=== PATIENT | female | born 1990 | race Caucasian/White ===

== ENCOUNTER 2017-01-23 23:25 | Emergency (ER) | payer MEDICAID ==
[~2017-01-23] VITALS: Ht 170.2 cm; Wt 71.2 kg
[~2017-01-23 23:25] MED LIST: ACHD5005 PO; ALBU8.5H2 IH; BSP10T PO; BUDE10.22 IH; BUTA1TAB55 PO; CEPH-38 PO; CETI10TA17 PO; CIPR500T78 PO; CLON0.5T3 PO; FAMO-119 PO; FLUO20CA25 PO; HYDR-34 PO; IBP600T1 PO; MEDROXYPROGESTERONE IM; OLN5T PO; ONDA4TAB11 PO; PREN-93 PO; SRTR100T PO
--- OUTSIDE RECORDS SUMMARY | 2017-01-23 23:32 | XMS REPORT | Continuity of Care Document ---
Author Author [facility] Organization [facility] Address Unknown Phone Unavailable Care Team Providers Care Lap Cutter Truer Operator Name Role Phone KathleenRogersAllison PCP [phone] Source Comments Some departments are not documenting in the electronic medical record. If you do not see the information that you expected, contact Release of Information in the Health Information Management department at [phone] for further assistance in locating additional records.[facility] Active Allergies and Adverse Reactions No Known Allergies Current Medications Prescription Sig. Disp. Refills Start End Date Status Date albuterol (VENTOLIN HFA, Inhale 1-2 Puffs by mouth Active PROAIR HFA) 90 every 4 hours as needed. mcg/actuation inhaler budesonide/formoterol Inhale 2 Puffs by mouth Active (SYMBICORT) 80-4.5 twice daily. mcg/actuation HFAA inhalation cetirizine (ZYRTEC) 10 mg Take 10 mg by mouth Active tablet daily. medroxyPROGESTERone Inject 150 mg to area(s) Active (contraceptive) as directed every 90 (DEPO-PROVERA) syringe days. cyanocobalamin(+) Take 100 mcg by mouth Active (VITAMIN B-12) 100 mcg twice daily. tablet MULTIVITAMIN WITH Take 1 Tab by mouth Active MINERALS (MULTIVITAMIN & daily. MINERAL FORMULA PO) ibuprofen (MOTRIN) 200 mg Take 400 mg by mouth Active tablet every 8 hours as needed. sertraline (ZOLOFT) 100 Take 100 mg by mouth Active mg tablet daily. clonazePAM (KLONOPIN) 0.5 Take 0.5 mg by mouth as Active mg tablet Needed. sumatriptan (IMITREX) 100 Take 100 mg by mouth as Active mg tablet Needed. Active Problems Problem Noted Date Urinary incontinence 11/25/2012 Overview: Urgency, frequency, UUI 09/[address] Russo. Enrolled in [employer] insite trial. Device no longer working. L ast Assessment & Plan: -informed and consented patient for removal and replacement of sacral nerve stimulator on 01/10/13 -PAT scheduled for today -pre-operative orders including urine culture placed electronically -no further imaging/consults prior to OR Social History Tobacco Use Types Packs/Day Years Used Date Passive Smoke Exposure - Cigarettes 0.25 1 Never Smoker Smokeless Tobacco: Never Used Tobacco Cessation: Ready to Quit: No Comments: Alcohol Use Drinks/Week oz/Week Comments Yes 7 Glasses of 10.2 wine 6 Cans of beer 4 Shots of liquor Last Filed Vital Signs Vital Sign Reading Time Taken Blood Pressure 108/67 02/04/2014 4:04 PM CDT Pulse 67 02/04/2014 4:04 PM CDT Temperature 36.4 C (97.5 F) 01/10/2013 9:38 AM CDT Respiratory Rate 20 11/03/2012 3:38 PM CDT Height 1.676 m (5' 6") 02/04/2014 4:04 PM CDT Weight 73.936 kg (163 lb) 02/04/2014 4:04 PM CDT Body Mass Index 26.32 02/04/2014 4:04 PM CDT Oxygen Saturation 99% 01/10/2013 10:45 AM CDT Plan of Care Health Maintenance Due Date Last Done Comments Physical (Comprehensive) 1999 Exam Hpv Vaccines (#1) 2003 Pertussis Vaccine 2003 Tetanus Vaccine 2009 Cervical Cancer Screening 2013 Influenza Vaccine 03/30/2017 Results from Last 3 Months Not on file
--- OUTSIDE RECORDS SUMMARY | 2017-01-23 23:33 | XMS REPORT ---
Author Author KYLE FERNANDEZ [employer] Address Unknown Phone Unavailable Care Team Providers Care Inspector Missile Name Role Phone KYLE FERNANDEZ CP Unavailable Allergies No Known Allergies Problems Problem Type Condition Code Onset Dates Condition Status Problem Depression F32.9 Active Problem Intractable migraine with aura without status migrainosus G43.119 Active Problem Galactorrhea O92.6 Active Problem Acne, unspecified acne type L70.9 Active Problem TANNA (generalized anxiety disorder) F41.1 Active Problem Bipolar disorder, current episode mixed, severe, with psychotic features F31.64 Active Problem Bipolar I disorder, most recent episode mixed, severe without psychotic features F31.63 Active Problem PTSD (post-traumatic stress disorder) F43.10 Active Medications Medication Code System Code Instructions Start Date End Date Status Dosage Klonopin [facility] [address]-59 0.5 MG Orally 2 times a day as needed for anxiety 1 tablet Results No Known Results Summary Purpose [employer]Clinical[employer] Submission
--- OUTSIDE RECORDS SUMMARY | 2017-01-23 23:36 | XMS REPORT ---
Author Author KYLE FERNANDEZ [employer] Address Unknown Phone Unavailable Care Team Providers Care Prime Minister Name Role Phone KYLE FERNANDEZ CP Unavailable Allergies No Known Allergies Problems Problem Type Condition Code Onset Dates Condition Status Problem Bipolar disorder, current episode mixed, severe, with psychotic features F31.64 Active Problem Depression F32.9 Active Problem ADHD (attention deficit hyperactivity disorder), combined type F90.2 Active Problem Acne, unspecified acne type L70.9 Active Problem Chronic post-traumatic stress disorder (PTSD) F43.12 Active Problem Bipolar I disorder, most recent episode mixed, severe without psychotic features F31.63 Active Problem TANNA (generalized anxiety disorder) F41.1 Active Problem Intractable migraine with aura without status migrainosus G43.119 Active Problem Galactorrhea O92.6 Active Medications Medication Code System Code Instructions Start Date End Date Status Dosage Concerta [facility] [address]-20 27 MG Orally for ADHD Apr 13, 2016 1 tablet in the morning Results No Known Results Summary Purpose [employer]ClinicalWorks Submission
--- OUTSIDE RECORDS SUMMARY | 2017-01-23 23:36 | XMS REPORT ---
Author KYLE Manuel [employer] Address Unknown Phone Unavailable Care Team Providers Care Neonatal Nurse Name Role Phone KYLE FERNANDEZ CP Unavailable Allergies No Known Allergies Problems Problem Type Condition Code Onset Dates Condition Status Problem Depression F32.9 Active Assessment Other detention (current) drug therapy Z79.899 Active Problem Intractable migraine with aura without status migrainosus G43.119 Active Problem Galactorrhea O92.6 Active Problem Acne, unspecified acne type L70.9 Active Problem TANNA (generalized anxiety disorder) F41.1 Active Problem Bipolar disorder, current episode mixed, severe, with psychotic features F31.64 Active Problem Bipolar I disorder, most recent episode mixed, severe without psychotic features F31.63 Active Problem PTSD (post-traumatic stress disorder) F43.10 Active Medications No Known Medications Procedures Procedure Coding System Code Date VENIPUNCT, ROUTINE* CPT-4 39867 February 18, 2016 ASSAY, DIPROPYLACETIC ACID CPT-4 01105 February 18, 2016 Results No Known Results Summary Purpose [employer] Submission
--- OUTSIDE RECORDS SUMMARY | 2017-01-23 23:36 | XMS REPORT ---
Author Author ZENA GARCIA [facility] [employer] Address Unknown Phone Unavailable Care Team Providers Care Certified Bench Jeweler Technician Name Role Phone ZENA GARCIA CP Unavailable Allergies, Adverse Reactions, Alerts Substance Reaction Event Type N.K.D.A. Info Not Available Non Drug Allergy Problems Problem Type Condition Code Onset Dates Condition Status Assessment Abnormal vaginal bleeding N93.9 Active Medications Medication Code System Code Instructions Start Date End Date Status Dosage Depo-Provera [facility] [address]-81 150 MG/ML Intramuscular q 3 months Mar 31, 2015 1 ml Procedures Procedure Coding System Code Date CULTURE, BACTERIA, OTHER CPT-4 89982 Apr 29, 2015 CHYLMD TRACH, DNA, AMP PROBE CPT-4 83229 Apr 29, 2015 TRICHOMONAS VAGIN, DIR PROBE CPT-4 93906 Apr 29, 2015 COMPLETE CBC W/AUTO DIFF WBC CPT-4 34105 Apr 29, 2015 N.GONORRHOEAE, DNA, AMP PROB CPT-4 38650 Apr 29, 2015 Office Visit, Est Pt., Level 3 CPT-4 24376 Apr 29, 2015 VENIPUNCT, ROUTINE* CPT-4 02390 Apr 29, 2015 Vital Signs Date/Time: Apr 29, 2015 Temperature 99.1 F Weight 171.0 lbs Height 67 in BMI 26.78 Index Blood Pressure Diastolic 80 mmHg Blood Pressure Systolic 124 mmHg Cardiac Monitoring Heart Rate 72 bpm Results Name Result Date Reference Range Unit Abnormality Flag CULTURE, GENITAL TRICHOMONAS (IN HOUSE) CBC Summary Purpose eClinicalWorks Submission
--- OUTSIDE RECORDS SUMMARY | 2017-01-23 23:36 | XMS REPORT ---
Author Author KYLE FERNANDEZ [employer] Address Unknown Phone Unavailable Care Team Providers Care Stopper Setter Name Role Phone KYLE FERNANDEZ CP Unavailable [...] Date End Date Status Dosage Klonopin [facility] [address]-26 0.5 MG Orally in the AM and at HS as needed for anxiety and sleep 1 tablet Results No Known Results Summary Purpose eClinicalWorks Submission
--- OUTSIDE RECORDS SUMMARY | 2017-01-23 23:36 | XMS REPORT | Continuity of Care Document ---
Author Author Formerly [facility], [facility] Address Unknown Phone Unavailable Allergies Active Description Code Type Severity Reaction Onset Reported/Identified Relationship to Patient Clinical Status Yes No Known Drug Allergies [id number] Drug Allergy Mild N/A 02/22/2009 Medications Problems Date Dx Coded Attending Type Code Diagnosis Diagnosed By 03/24/2008 564.00 CONSTIPATION 03/24/2008 599.0 URINARY TRACT INFECTION 03/24/2008 788.1 DYSURIA 03/24/2008 789.00 ABDOMINAL PAIN UNSPECIFIED SITE 03/24/2008 CESILIA CANALES MD 564.00 CONSTIPATION 03/24/2008 CESILIA CANALES MD 599.0 URINARY TRACT INFECTION 03/24/2008 CESILIA CANALES MD 788.1 DYSURIA 03/24/2008 CESILIA CANALES MD 789.00 ABDOMINAL PAIN UNSPECIFIED SITE 03/24/2008 LE GILMORE PSYD L 564.00 CONSTIPATION 03/24/2008 LE GILMORE PSYD ANN L 599.0 URINARY TRACT INFECTION 03/24/2008 LE GILMORE PSYD ANN L 788.1 DYSURIA 03/24/2008 LE GILMORE PSYD ANN L 789.00 ABDOMINAL PAIN UNSPECIFIED SITE 03/24/2008 CESILIA CANALES MD 564.00 Constipation 03/24/2008 CESILIA CANALES MD 599.0 Urinary Tract Infection 03/24/2008 CESILIA CANALES MD 788.1 Dysuria 03/24/2008 CESILIA CANALES MD 789.00 Abdominal Pain Unspecified Site 03/24/2008 564.00 Constipation 03/24/2008 599.0 Urinary Tract Infection 03/24/2008 788.1 Dysuria 03/24/2008 789.00 Abdominal Pain Unspecified Site 03/24/2008 564.00 Constipation 03/24/2008 599.0 Urinary Tract Infection 03/24/2008 788.1 Dysuria 03/24/2008 789.00 Abdominal Pain Unspecified Site 03/24/2008 564.00 Constipation 03/24/2008 599.0 Urinary Tract Infection 03/24/2008 788.1 Dysuria 03/24/2008 789.00 Abdominal Pain Unspecified Site 03/24/2008 WHITE DDS, CHAN D 564.00 Constipation 03/24/2008 WHITE DDS, CHAN D 599.0 Urinary Tract Infection 03/24/2008 WHITE DDS, CHAN D 788.1 Dysuria 03/24/2008 WHITE DDS, CHAN D 789.00 Abdominal Pain Unspecified Site 03/24/2008 SERVIN DO, URSZULA K 564.00 Constipation 03/24/2008 SERVIN DO, URSZULA K 599.0 Urinary Tract Infection 03/24/2008 SERVIN DO, URSZULA K 788.1 Dysuria 03/24/2008 SERVIN DO, URSZULA K 789.00 Abdominal Pain Unspecified Site 03/24/2008 MADL PLACEMENT SPECIALIST, DANE L 564.00 Constipation 03/24/2008 MADL PLACEMENT SPECIALIST, DANE L 599.0 Urinary Tract Infection 03/24/2008 MADL PLACEMENT SPECIALIST, DANE L 788.1 Dysuria 03/24/2008 MADL PLACEMENT SPECIALIST, DANE L 789.00 Abdominal Pain Unspecified Site 03/24/2008 MADL PLACEMENT SPECIALIST, DANE L 564.00 Constipation 03/24/2008 MADL PLACEMENT SPECIALIST, DANE L 599.0 Urinary Tract Infection 03/24/2008 MADL PLACEMENT SPECIALIST, DANE L 788.1 Dysuria 03/24/2008 MADL PLACEMENT SPECIALIST, DANE L 789.00 Abdominal Pain Unspecified Site 03/24/2008 USHA PLACEMENT SPECIALIST, MELISSA A 564.00 Constipation 03/24/2008 USHA PLACEMENT SPECIALIST, MELISSA A 599.0 Urinary Tract Infection 03/24/2008 USHA PLACEMENT SPECIALIST, MELISSA A 788.1 Dysuria 03/24/2008 USHA PLACEMENT SPECIALIST, MELISSA A 789.00 Abdominal Pain Unspecified Site 03/24/2008 USHA PLACEMENT SPECIALIST, MELISSA A 564.00 Constipation 03/24/2008 USHA PLACEMENT SPECIALIST, MELISSA A 599.0 Urinary Tract Infection 03/24/2008 USHA PLACEMENT SPECIALIST, MELISSA A 788.1 Dysuria 03/24/2008 USHA APRN, MELISSA A 789.00 Abdominal Pain Unspecified Site 03/24/2008 VAHID ZAVALA APRNWNYA L 564.00 Constipation 03/24/2008 SALLY THAKKAR, DANE L 599.0 Urinary Tract Infection 03/24/2008 NILA ZAVALA APRNA L 788.1 Dysuria 03/24/2008 SALLY THAKKAR, DANE L 789.00 Abdominal Pain Unspecified Site 03/24/2008 SERVIN DO, URSZULA K 564.00 Constipation 03/24/2008 SERVIN DO, URSZULA K 599.0 Urinary Tract Infection 03/24/2008 SERVIN DO, URSZULA K 788.1 Dysuria 03/24/2008 SERVIN DO, URSZULA K 789.00 Abdominal Pain Unspecified Site 03/24/2008 CRAIG KERR APRNIDI A 564.00 Constipation 03/24/2008 CRAIG KERR APRNIDI A 599.0 Urinary Tract Infection 03/24/2008 USHACRAIG Acuna APRNIDI A 788.1 Dysuria 03/24/2008 USHA APRN, MELISSA A 789.00 Abdominal Pain Unspecified Site 03/24/2008 ZORAIDA HOLLEY LCPC B 564.00 Constipation 03/24/2008 ZORAIDA HOLLEY LCPC B 599.0 Urinary Tract Infection 03/24/2008 KISHAN GONZALEZ, ZORAIDA B 788.1 Dysuria 03/24/2008 ZORAIDA HOLLEY LCPC B 789.00 Abdominal Pain Unspecified Site 03/24/2008 USHA THAKKAR, MELISSA A 564.00 Constipation 03/24/2008 USHA APRN, MELISSA A 599.0 Urinary Tract Infection 03/24/2008 USHA THAKKAR MELISSA A 788.1 Dysuria 03/24/2008 USHA THAKKAR MELISSA A 789.00 Abdominal Pain Unspecified Site 03/24/2008 KYLE FERNANDEZ APRN J 564.00 Constipation 03/24/2008 KYLE FERNANDEZ APRN J 599.0 Urinary Tract Infection 03/24/2008 KYLE FERNANDEZ APRN J 788.1 Dysuria 03/24/2008 JIM THAKKAR KYLE J 789.00 Abdominal Pain Unspecified Site 03/24/2008 SERVIN DO, URSZULA K 564.00 Constipation 03/24/2008 SERVIN DO, URSZULA K 599.0 Urinary Tract Infection 03/24/2008 SERVIN DO, URSZULA K 788.1 Dysuria 03/24/2008 SERVIN DO, URSZULA K 789.00 Abdominal Pain Unspecified Site 03/24/2008 [facility], MAY R 564.00 Constipation 03/24/2008 [facility] 599.0 Urinary Tract Infection 03/24/2008 [facility], MAY R 788.1 Dysuria 03/24/2008 [facility], MAY R 789.00 Abdominal Pain Unspecified Site 03/24/2008 SERVIN DO, URSZULA K 564.00 Constipation 03/24/2008 SERVIN DO, URSZULA K 599.0 Urinary Tract Infection 03/24/2008 SERVIN DO, URSZULA K 788.1 Dysuria 03/24/2008 SERVIN DO, URSZULA K 789.00 Abdominal Pain Unspecified Site 03/24/2008 DOC CHAMPION MD N 564.00 Constipation 03/24/2008 DOC CHAMPION MD N 599.0 Urinary Tract Infection 03/24/2008 DOC CHAMPION MD N 788.1 Dysuria 03/24/2008 DOC CHAMPION MD N 789.00 Abdominal Pain Unspecified Site 03/24/2008 SERVIN DO, URSZULA K 564.00 Constipation 03/24/2008 SERVIN DO, URSZULA K 599.0 Urinary Tract Infection 03/24/2008 SERVIN DO, URSZULA K 788.1 Dysuria 03/24/2008 SERVIN DO, URSZULA K 789.00 Abdominal Pain Unspecified Site 03/24/2008 USHA PLACEMENT SPECIALIST, MELISSA A 564.00 Constipation 03/24/2008 USHA PLACEMENT SPECIALIST, MELISSA A 599.0 Urinary Tract Infection 03/24/2008 USHA PLACEMENT SPECIALIST, MELISSA A 788.1 Dysuria 03/24/2008 USHA PLACEMENT SPECIALIST, MELISSA A 789.00 Abdominal Pain Unspecified Site 09/14/2008 V72.31 ROUTINE GYNECOLOGICAL EXAMINATION 09/14/2008 CESILIA CANALES MD V72.31 ROUTINE GYNECOLOGICAL EXAMINATION 09/14/2008 LE GILMORE PSYD V72.31 ROUTINE GYNECOLOGICAL EXAMINATION 09/14/2008 CESILIA CANALES MD V72.31 Routine Gynecological Examination 09/14/2008 V72.31 Routine Gynecological Examination 09/14/2008 V72.31 Routine Gynecological Examination 09/14/2008 V72.31 Routine Gynecological Examination 09/14/2008 SHAUN FORMANS, CHAN Valencia V72.31 Routine Gynecological Examination 09/14/2008 SERVIN URSZULA WOOTEN K V72.31 Routine Gynecological Examination 09/14/2008 SALLY PLACEMENT SPECIALISTDANE Acuna V72.31 Routine Gynecological Examination 09/14/2008 SALLY PLACEMENT SPECIALIST, DANE Mitzy V72.31 Routine Gynecological Examination 09/14/2008 MELISSA KERR APRN V72.31 Routine Gynecological Examination 09/14/2008 MELISSA KERR APRN V72.31 Routine Gynecological Examination 09/14/2008 DANE ZAVALA APRN V72.31 Routine Gynecological Examination 09/14/2008 URSZULA SERVIN DO V72.31 Routine Gynecological Examination 09/14/2008 MELISSA KERR APRN A V72.31 Routine Gynecological Examination 09/14/2008 KISHAN VENDING STAND SUPERVISORZORAIDA BROWN V72.31 Routine Gynecological Examination 09/14/2008 MELISSA KERR APRN A V72.31 Routine Gynecological Examination 09/14/2008 KYLE FERNANDEZ APRN V72.31 Routine Gynecological Examination 09/14/2008 SERVIN ALEX WOOTENA K V72.31 Routine Gynecological Examination 09/14/2008 [facility], MAY Hdez V72.31 Routine Gynecological Examination 09/14/2008 SERVIN ALEX WOOTENA K V72.31 Routine Gynecological Examination 09/14/2008 DOC CHAMPION MD V72.31 Routine Gynecological Examination 09/14/2008 SERVIN ALEX WOOTENA K V72.31 Routine Gynecological Examination 09/14/2008 MELISSA KERR APRN A V72.31 Routine Gynecological Examination 10/26/2008 382.00 OTITIS MEDIA ACUTE SUPPURATIVE 10/26/2008 493.92 ASTHMA WITH ACUTE EXACERBATION 10/26/2008 706.1 ACNE 10/26/2008 CESILIA CANALES MD 382.00 OTITIS MEDIA ACUTE SUPPURATIVE 10/26/2008 CESILIA CANALES MD 493.92 ASTHMA WITH ACUTE EXACERBATION 10/26/2008 CESILIA CANALES MD 706.1 ACNE 10/26/2008 LE GILMORE PSYD ANN L 382.00 OTITIS MEDIA ACUTE SUPPURATIVE 10/26/2008 LE GILMORE PSYD ANN L 493.92 ASTHMA WITH ACUTE EXACERBATION 10/26/2008 LE GILMORE PSYD ANN L 706.1 ACNE 10/26/2008 CESILIA CANALES MD 382.00 Otitis Media Acute Suppurative 10/26/2008 CESILIA CANALES MD 493.92 Asthma With Acute Exacerbation 10/26/2008 CESILIA CANALES MD 706.1 Acne 10/26/2008 382.00 Otitis Media Acute Suppurative 10/26/2008 493.92 Asthma With Acute Exacerbation 10/26/2008 706.1 Acne 10/26/2008 382.00 Otitis Media Acute Suppurative 10/26/2008 493.92 Asthma With Acute Exacerbation 10/26/2008 706.1 Acne 10/26/2008 382.00 Otitis Media Acute Suppurative 10/26/2008 493.92 Asthma With Acute Exacerbation 10/26/2008 706.1 Acne 10/26/2008 WHITE DDS, CHAN D 382.00 Otitis Media Acute Suppurative 10/26/2008 WHITE DDS, CHAN D 493.92 Asthma With Acute Exacerbation 10/26/2008 WHITE DDS, CHAN D 706.1 Acne 10/26/2008 SERVIN DO URSZULA K 382.00 Otitis Media Acute Suppurative 10/26/2008 SERVIN DO URSZULA K 493.92 Asthma With Acute Exacerbation 10/26/2008 SERVIN DO URSZULA K 706.1 Acne 10/26/2008 MADL PLACEMENT SPECIALIST, DANE L 382.00 Otitis Media Acute Suppurative 10/26/2008 MADL PLACEMENT SPECIALIST, DANE L 493.92 Asthma With Acute Exacerbation 10/26/2008 MADL PLACEMENT SPECIALIST, DANE L 706.1 Acne 10/26/2008 MADL PLACEMENT SPECIALIST, DANE L 382.00 Otitis Media Acute Suppurative 10/26/2008 MADL PLACEMENT SPECIALIST, DANE L 493.92 Asthma With Acute Exacerbation 10/26/2008 MADL PLACEMENT SPECIALIST, DANE L 706.1 Acne 10/26/2008 CRAIG KERR APRNIDI A 382.00 Otitis Media Acute Suppurative 10/26/2008 USHA LANGKalpana MELISSA A 493.92 Asthma With Acute Exacerbation 10/26/2008 USHA LANGKalpana MELISSA A 706.1 Acne 10/26/2008 USHA LANGKalpana MELISSA A 382.00 Otitis Media Acute Suppurative 10/26/2008 USHA CRAIG THAKKARIDI A 493.92 Asthma With Acute Exacerbation 10/26/2008 USHAKalpana THAKKAR MELISSA A 706.1 Acne 10/26/2008 MAD VAHID THAKKARWNYA L 382.00 Otitis Media Acute Suppurative 10/26/2008 MAD PLACEMENT SPECIALISTNILAA L 493.92 Asthma With Acute Exacerbation 10/26/2008 DEBORAH PLACEMENT SPECIALIST, DANE L 706.1 Acne 10/26/2008 URSZULA SERVIN DO K 382.00 Otitis Media Acute Suppurative 10/26/2008 URSZULA SERVIN DO K 493.92 Asthma With Acute Exacerbation 10/26/2008 URSZULA SERVIN DO K 706.1 Acne 10/26/2008 USHA LANGKalpana MELISSA A 382.00 Otitis Media Acute Suppurative 10/26/2008 USHAKalpana THAKKAR MELISSA A 493.92 Asthma With Acute Exacerbation 10/26/2008 USHAKalpana THAKKAR MELISSA A 706.1 Acne 10/26/2008 ZORAIDA HOLLEY LCPC B 382.00 Otitis Media Acute Suppurative 10/26/2008 ZORAIDA HOLLEY LCPC B 493.92 Asthma With Acute Exacerbation 10/26/2008 ZORAIDA HOLLEY LCPC B 706.1 Acne 10/26/2008 USHA PLACEMENT SPECIALIST, MELISSA A 382.00 Otitis Media Acute Suppurative 10/26/2008 USHAMELISSA Acuna APRN A 493.92 Asthma With Acute Exacerbation 10/26/2008 USHAKalpana THAKKAR MELISSA A 706.1 Acne 10/26/2008 KYLE FERNANDEZ APRN 382.00 Otitis Media Acute Suppurative 10/26/2008 KYLE FERNANDEZ APRN 493.92 Asthma With Acute Exacerbation 10/26/2008 KYLE FERNANDEZ APRN J 706.1 Acne 10/26/2008 SERVIN URSZULA WOOTEN K 382.00 Otitis Media Acute Suppurative 10/26/2008 SERVIN DO, URSZULA K 493.92 Asthma With Acute Exacerbation 10/26/2008 SERVIN DO, URSZULA K 706.1 Acne 10/26/2008 [facility], MAY R 382.00 Otitis Media Acute Suppurative 10/26/2008 [facility], MAY R 493.92 Asthma With Acute Exacerbation 10/26/2008 [facility], MAY R 706.1 Acne 10/26/2008 SERVIN DO, URSZULA K 382.00 Otitis Media Acute Suppurative 10/26/2008 SERVIN DO, URSZULA K 493.92 Asthma With Acute Exacerbation 10/26/2008 SERVIN DO, URSZULA K 706.1 Acne 10/26/2008 JAYCEE RAMOS, DOC N 382.00 Otitis Media Acute Suppurative 10/26/2008 JAYCEE RAMOS, DOC N 493.92 Asthma With Acute Exacerbation 10/26/2008 JAYCEE RAMOS, DOC N 706.1 Acne 10/26/2008 SERVIN DO URSZULA K 382.00 Otitis Media Acute Suppurative 10/26/2008 SERVIN DO, URSZULA K 493.92 Asthma With Acute Exacerbation 10/26/2008 SERVIN DO, URSZULA K 706.1 Acne 10/26/2008 USHA PLACEMENT SPECIALIST, MELISSA A 382.00 Otitis Media Acute Suppurative 10/26/2008 USHA PLACEMENT SPECIALIST, MELISSA A 493.92 Asthma With Acute Exacerbation 10/26/2008 USHA PLACEMENT SPECIALIST, MELISSA A 706.1 Acne 03/08/2009 V25.49 SURVEILLANCE OF OTHER CONTRACEPTIVE METHOD 03/08/2009 CESILIA CANALES MD V25.49 SURVEILLANCE OF OTHER CONTRACEPTIVE METHOD 03/08/2009 LE GILMORE PSYD V25.49 SURVEILLANCE OF OTHER CONTRACEPTIVE METHOD 03/08/2009 CESILIA CANALES MD V25.49 Surveillance Of Other Contraceptive Method 03/08/2009 V25.49 Surveillance Of Other Contraceptive Method 03/08/2009 V25.49 Surveillance Of Other Contraceptive Method 03/08/2009 V25.49 Surveillance Of Other Contraceptive Method 03/08/2009 CHAN DUNN DDS V25.49 Surveillance Of Other Contraceptive Method 03/08/2009 SERVIN URSZULA WOOTEN V25.49 Surveillance Of Other Contraceptive Method 03/08/2009 MADL PLACEMENT SPECIALIST, DANE L V25.49 Surveillance Of Other Contraceptive Method 03/08/2009 MADL PLACEMENT SPECIALIST, DANE L V25.49 Surveillance Of Other Contraceptive Method 03/08/2009 USHA PLACEMENT SPECIALIST, MELISSA A V25.49 Surveillance Of Other Contraceptive Method 03/08/2009 USHA PLACEMENT SPECIALIST, MELISSA A V25.49 Surveillance Of Other Contraceptive Method 03/08/2009 MADL PLACEMENT SPECIALIST, DANE L V25.49 Surveillance Of Other Contraceptive Method 03/08/2009 SERVIN DOALEXA K V25.49 Surveillance Of Other Contraceptive Method 03/08/2009 USHA PLACEMENT SPECIALIST, MELISSA A V25.49 Surveillance Of Other Contraceptive Method 03/08/[address] [facility], ZORAIDA Yadav V25.49 Surveillance Of Other Contraceptive Method 03/08/2009 USHA PLACEMENT SPECIALIST, MELISSA A V25.49 Surveillance Of Other Contraceptive Method 03/08/2009 KYLE FERNANDEZ APRN V25.49 Surveillance Of Other Contraceptive Method 03/08/2009 SERVIN ALEX WOOTENA K V25.49 Surveillance Of Other Contraceptive Method 03/08/2009 [facility], MAY R V25.49 Surveillance Of Other Contraceptive Method 03/08/2009 SERVIN DO URSZULA K V25.49 Surveillance Of Other Contraceptive Method 03/08/2009 JAYCEE RAMOS, DOC Acuna V25.49 Surveillance Of Other Contraceptive Method 03/08/2009 SERVIN ALEX WOOTENA K V25.49 Surveillance Of Other Contraceptive Method 03/08/2009 USHA PLACEMENT SPECIALIST, MELISSA A V25.49 Surveillance Of Other Contraceptive Method 03/30/2009 465.9 UPPER RESPIRATORY INFECTION 03/30/2009 CESILIA CANALES MD 465.9 UPPER RESPIRATORY INFECTION 03/30/2009 LE GILMORE PSYD 465.9 UPPER RESPIRATORY INFECTION 03/30/2009 CESILIA CANALES MD 465.9 Upper Respiratory Infection 03/30/2009 465.9 Upper Respiratory Infection 03/30/2009 465.9 Upper Respiratory Infection 03/30/2009 465.9 Upper Respiratory Infection 03/30/2009 CHAN DUNN DDS 465.9 Upper Respiratory Infection 03/30/2009 URSZULA SERVIN DO K 465.9 Upper Respiratory Infection 03/30/2009 MADL PLACEMENT SPECIALIST, DANE L 465.9 Upper Respiratory Infection 03/30/2009 MADL PLACEMENT SPECIALIST, DANE L 465.9 Upper Respiratory Infection 03/30/2009 USHA PLACEMENT SPECIALIST, MELISSA A 465.9 Upper Respiratory Infection 03/30/2009 USHA PLACEMENT SPECIALIST, MELISSA A 465.9 Upper Respiratory Infection 03/30/2009 MADL PLACEMENT SPECIALIST, DANE L 465.9 Upper Respiratory Infection 03/30/2009 SERVIN DO, URSZULA K 465.9 Upper Respiratory Infection 03/30/2009 USHA PLACEMENT SPECIALIST, MELISSA A 465.9 Upper Respiratory Infection 03/30/[address] [facility], ZORAIDA B 465.9 Upper Respiratory Infection 03/30/2009 USHA PLACEMENT SPECIALIST, MELISSA A 465.9 Upper Respiratory Infection 03/30/2009 JIM PLACEMENT SPECIALIST, KYLE Seay 465.9 Upper Respiratory Infection 03/30/2009 SERVIN DO, URSZULA K 465.9 Upper Respiratory Infection 03/30/2009 [facility], MAY R 465.9 Upper Respiratory Infection 03/30/2009 SERVIN DO, URSZULA K 465.9 Upper Respiratory Infection 03/30/2009 JAYCEE RAMOS, DOC Acuna 465.9 Upper Respiratory Infection 03/30/2009 SERVIN DO, URSZULA K 465.9 Upper Respiratory Infection 03/30/2009 USHA PLACEMENT SPECIALIST, MELISSA A 465.9 Upper Respiratory Infection 11/18/2009 388.70 OTALGIA, UNSPECIFIED 11/18/2009 477.9 RHINITIS 11/18/2009 CESILIA CANALES MD 388.70 OTALGIA, UNSPECIFIED 11/18/2009 PARKER RAMOS, CESILIA 477.9 RHINITIS 11/18/2009 LE GILMORE PSYD 388.70 OTALGIA, UNSPECIFIED 11/18/2009 LE GILMORE PSYD 477.9 RHINITIS 11/18/2009 CESILIA CANALES MD 388.70 Otalgia, Unspecified 11/18/2009 CESILIA CANALES MD 477.9 Rhinitis 11/18/2009 388.70 Otalgia, Unspecified 11/18/2009 477.9 Rhinitis 11/18/2009 388.70 Otalgia, Unspecified 11/18/2009 477.9 Rhinitis 11/18/2009 388.70 Otalgia, Unspecified 11/18/2009 477.9 Rhinitis 11/18/2009 WHITE DDS, CHAN D 388.70 Otalgia, Unspecified 11/18/2009 WHITE DDS, CHAN D 477.9 Rhinitis 11/18/2009 SERVIN DO, URSZULA K 388.70 Otalgia, Unspecified 11/18/2009 SERVIN DO, URSZULA K 477.9 Rhinitis 11/18/2009 MADL PLACEMENT SPECIALIST, DANE L 388.70 Otalgia, Unspecified 11/18/2009 MADL PLACEMENT SPECIALIST, DANE L 477.9 Rhinitis 11/18/2009 MADL PLACEMENT SPECIALIST, DANE L 388.70 Otalgia, Unspecified 11/18/2009 MADL PLACEMENT SPECIALIST, DANE L 477.9 Rhinitis 11/18/2009 USHA PLACEMENT SPECIALIST, MELISSA A 388.70 Otalgia, Unspecified 11/18/2009 USHA PLACEMENT SPECIALIST, MELISSA A 477.9 Rhinitis 11/18/2009 USHA PLACEMENT SPECIALIST, MELISSA A 388.70 Otalgia, Unspecified 11/18/2009 USHA PLACEMENT SPECIALIST, MELISSA A 477.9 Rhinitis 11/18/2009 MADL PLACEMENT SPECIALIST, DANE L 388.70 Otalgia, Unspecified 11/18/2009 MADL PLACEMENT SPECIALIST, DANE L 477.9 Rhinitis 11/18/2009 SERVIN DO, URSZULA K 388.70 Otalgia, Unspecified 11/18/2009 SERVIN DO, URSZULA K 477.9 Rhinitis 11/18/2009 USHA PLACEMENT SPECIALIST, MELISSA A 388.70 Otalgia, Unspecified 11/18/2009 USHA PLACEMENT SPECIALIST, MELISSA A 477.9 Rhinitis 11/18/2009 KISHAN VENDING STAND SUPERVISOR, ZORAIDA B 388.70 Otalgia, Unspecified 11/18/2009 KISHAN VENDING STAND SUPERVISOR, ZORAIDA B 477.9 Rhinitis 11/18/2009 USHA PLACEMENT SPECIALIST, MELISSA A 388.70 Otalgia, Unspecified 11/18/2009 USHA PLACEMENT SPECIALIST, MELISSA A 477.9 Rhinitis 11/18/2009 JIM PLACEMENT SPECIALISTKYLE J 388.70 Otalgia, Unspecified 11/18/2009 JIM PLACEMENT SPECIALIST, KYLE Seay 477.9 Rhinitis 11/18/2009 SERVIN DO, URSZULA K 388.70 Otalgia, Unspecified 11/18/2009 SERVIN DO, URSZULA K 477.9 Rhinitis 11/18/2009 [facility], MAY R 388.70 Otalgia, Unspecified 11/18/2009 [facility], MAY R 477.9 Rhinitis 11/18/2009 SERVIN DO, URSZULA K 388.70 Otalgia, Unspecified 11/18/2009 SERVIN DO, URSZULA K 477.9 Rhinitis 11/18/2009 JAYCEE RAMOS, DOC N 388.70 Otalgia, Unspecified 11/18/2009 JAYCEE RAMOS, DOC Acuna 477.9 Rhinitis 11/18/2009 SERVIN DO, URSZULA K 388.70 Otalgia, Unspecified 11/18/2009 SERVIN DO, URSZULA K 477.9 Rhinitis 11/18/2009 MELISSA KERR APRN A 388.70 Otalgia, Unspecified 11/18/2009 USHA THAKKAR, MELISSA A 477.9 Rhinitis 03/09/2010 729.1 MYALGIA AND MYOSITIS, UNSPECIFIED 03/09/2010 CESILIA CANALES MD 729.1 MYALGIA AND MYOSITIS, UNSPECIFIED 03/09/2010 LE GILMORE PSYD 729.1 MYALGIA AND MYOSITIS, UNSPECIFIED 03/09/2010 CESILIA CANALES MD 729.1 Myalgia And Myositis, Unspecified 03/09/2010 729.1 Myalgia And Myositis, Unspecified 03/09/2010 729.1 Myalgia And Myositis, Unspecified 03/09/2010 729.1 Myalgia And Myositis, Unspecified 03/09/2010 CHAN DUNN DDS 729.1 Myalgia And Myositis, Unspecified 03/09/2010 SERVIN , URSZULA K 729.1 Myalgia And Myositis, Unspecified 03/09/2010 DANE ZAVALA APRN 729.1 Myalgia And Myositis, Unspecified 03/09/2010 DEBORAHL DANE THAKKAR L 729.1 Myalgia And Myositis, Unspecified 03/09/2010 CRAIG KERR APRNIDI A 729.1 Myalgia And Myositis, Unspecified 03/09/2010 USHA PLACEMENT SPECIALIST, MELISSA A 729.1 Myalgia And Myositis, Unspecified 03/09/2010 MADL PLACEMENT SPECIALIST, DANE L 729.1 Myalgia And Myositis, Unspecified 03/09/2010 ALEX SERVIN DOA K 729.1 Myalgia And Myositis, Unspecified 03/09/2010 USHA PLACEMENT SPECIALISTCRAIGMELISSA A 729.1 Myalgia And Myositis, Unspecified 03/09/[address] [facility], ZORAIDA Yadav 729.1 Myalgia And Myositis, Unspecified 03/09/2010 USHA PLACEMENT SPECIALIST, MELISSA A 729.1 Myalgia And Myositis, Unspecified 03/09/2010 KYLE FERNANDEZ APRN 729.1 Myalgia And Myositis, Unspecified 03/09/2010 ALEX SERVIN DOA K 729.1 Myalgia And Myositis, Unspecified 03/09/2010 [facility], MAY R 729.1 Myalgia And Myositis, Unspecified 03/09/2010 ALEX SERVIN DOA K 729.1 Myalgia And Myositis, Unspecified 03/09/2010 JAYCEE RAMOS, DOC Acuna 729.1 Myalgia And Myositis, Unspecified 03/09/2010 ALEX SERVIN DOA K 729.1 Myalgia And Myositis, Unspecified 03/09/2010 USHA APRN, MELISSA A 729.1 Myalgia And Myositis, Unspecified 03/28/2010 493.90 ASTHMA, UNSPECIFIED, UNSPECIFIED 03/28/2010 PARKRE RAMOS, CESILIA 493.90 ASTHMA 03/28/2010 LE GILMORE PSYD 493.90 ASTHMA 03/28/2010 CESILIA CANALES MD 493.90 Asthma 03/28/2010 493.90 Asthma 03/28/2010 493.90 Asthma 03/28/2010 493.90 Asthma 03/28/2010 CHAN DUNN DDS 493.90 Asthma 03/28/2010 SERVIN URSZULA WOOTEN K 493.90 Asthma 03/28/2010 MADL PLACEMENT SPECIALIST, DANE L 493.90 Asthma 03/28/2010 MADL PLACEMENT SPECIALIST, DANE L 493.90 Asthma 03/28/2010 USHA PLACEMENT SPECIALIST, MELISSA A 493.90 Asthma 03/28/2010 USHA PLACEMENT SPECIALIST, MELISSA A 493.90 Asthma 03/28/2010 MADL PLACEMENT SPECIALIST, DANE L 493.90 Asthma 03/28/2010 SERVIN DO, URSZULA K 493.90 Asthma 03/28/2010 USHA PLACEMENT SPECIALIST, MELISSA A 493.90 Asthma 03/28/2010 KISHAN GONZALEZ, ZORAIDA Yadav 493.90 Asthma 03/28/2010 USHA PLACEMENT SPECIALIST, MELISSA A 493.90 Asthma 03/28/2010 JIM THAKKARVINAYFredis Seay 493.90 Asthma 03/28/2010 SERVIN DO, URSZULA K 493.90 Asthma 03/28/2010 [facility], MAY Hdez 493.90 Asthma 03/28/2010 SERVIN DO, URSZULA K 493.90 Asthma 03/28/2010 JAYCEE RAMOS, DOC Acuna 493.90 Asthma 03/28/2010 SERVIN DO, URSZULA K 493.90 Asthma 03/28/2010 USHA PLACEMENT SPECIALIST, MELISSA A 493.90 Asthma 07/14/2010 729.5 PAIN IN LIMB 07/14/2010 CESILIA CANALES MD 729.5 PAIN IN LIMB 07/14/2010 LE GILMORE PSYD 729.5 PAIN IN LIMB 07/14/2010 CESILIA CANALES MD 729.5 Pain In Limb 07/14/2010 729.5 Pain In Limb 07/14/2010 729.5 Pain In Limb 07/14/2010 729.5 Pain In Limb 07/14/2010 CHAN DUNN DDS 729.5 Pain In Limb 07/14/2010 SERVIN DO, URSZULA K 729.5 Pain In Limb 07/14/2010 MADL PLACEMENT SPECIALIST, DANE L 729.5 Pain In Limb 07/14/2010 MADL PLACEMENT SPECIALIST, DANE L 729.5 Pain In Limb 07/14/2010 USHA PLACEMENT SPECIALIST, MELISSA A 729.5 Pain In Limb 07/14/2010 USHA PLACEMENT SPECIALIST, MELISSA A 729.5 Pain In Limb 07/14/2010 MADL PLACEMENT SPECIALIST, DANE L 729.5 Pain In Limb 07/14/2010 SERVIN DO, URSZULA K 729.5 Pain In Limb 07/14/2010 USHA PLACEMENT SPECIALIST, MELISSA A 729.5 Pain In Limb 07/14/2010 ZORAIDA HOLLEY LCPC 729.5 Pain In Limb 07/14/2010 USHA PLACEMENT SPECIALIST, MELISSA A 729.5 Pain In Limb 07/14/2010 KYLE FERNANDEZ APRN 729.5 Pain In Limb 07/14/2010 SERVIN DO, URSZULA K 729.5 Pain In Limb 07/14/2010 [facility], [place] R 729.5 Pain In Limb 07/14/2010 SERVIN DO, URSZULA K 729.5 Pain In Limb 07/14/2010 JAYCEE RAMOS, DOC [place] 729.5 Pain In Limb 07/14/2010 SERVIN DO, URSZULA K 729.5 Pain In Limb 07/14/2010 USHA PLACEMENT SPECIALIST, MELISSA A 729.5 Pain In Limb 02/02/2011 474.00 CHRONIC TONSILLITIS 02/02/2011 CESILIA CANALES MD 474.00 CHRONIC TONSILLITIS 02/02/2011 LE GILMORE PSYD 474.00 CHRONIC TONSILLITIS 02/02/2011 CESILIA CANALES MD 474.00 Chronic Tonsillitis 02/02/2011 474.00 Chronic Tonsillitis 02/02/2011 474.00 Chronic Tonsillitis 02/02/2011 474.00 Chronic Tonsillitis 02/02/2011 SHAUN FORMANS, CHAN [place] 474.00 Chronic Tonsillitis 02/02/2011 URSZULA SERIVN DO K 474.00 Chronic Tonsillitis 02/02/2011 MADL PLACEMENT SPECIALIST, DANE L 474.00 Chronic Tonsillitis 02/02/2011 MADL PLACEMENT SPECIALIST, DANE L 474.00 Chronic Tonsillitis 02/02/2011 USHA PLACEMENT SPECIALIST, MELISSA A 474.00 Chronic Tonsillitis 02/02/2011 USHA PLACEMENT SPECIALIST, MELISSA A 474.00 Chronic Tonsillitis 02/02/2011 DEBORAHL PLACEMENT SPECIALIST, DANE L 474.00 Chronic Tonsillitis 02/02/2011 ALEX SERVIN DOA K 474.00 Chronic Tonsillitis 02/02/2011 USHA PLACEMENT SPECIALIST, MELISSA A 474.00 Chronic Tonsillitis 02/02/2011 KISHAN GONZALEZ ZORAIDA Yadav 474.00 Chronic Tonsillitis 02/02/2011 MELISSA KERR APRN A 474.00 Chronic Tonsillitis 02/02/2011 KYLE FERNANDEZ APRN 474.00 Chronic Tonsillitis 02/02/2011 SERVIN DO, URSZULA K 474.00 Chronic Tonsillitis 02/02/2011 [facility], [place] Hdez 474.00 Chronic Tonsillitis 02/02/2011 SERVIN DO, URSZULA K 474.00 Chronic Tonsillitis 02/02/2011 JAYCEE RAMOS, DOC Acuna 474.00 Chronic Tonsillitis 02/02/2011 SERVIN DO, URSZULA K 474.00 Chronic Tonsillitis 02/02/2011 USHA THAKKAR, MELISSA A 474.00 Chronic Tonsillitis 12/20/2011 478.19 RHINORRHEA 12/20/2011 625.0 DYSPAREUNIA 12/20/2011 626.4 IRREGULAR MENSTRUAL CYCLE 12/20/2011 V65.45 STD COUNSELING 12/20/2011 V74.5 STD SCREEN 12/20/2011 CESILIA CANALES MD 478.19 RHINORRHEA 12/20/2011 CESILIA CANALES MD 625.0 DYSPAREUNIA 12/20/2011 CESILIA CANALES MD 626.4 IRREGULAR MENSTRUAL CYCLE 12/20/2011 CESILIA CANALES MD V65.45 STD COUNSELING 12/20/2011 CESILIA CANALES MD V74.5 STD SCREEN 12/20/2011 LE [facility] PSYD 478.19 RHINORRHEA 12/20/2011 LE GILMORE PSYD L 625.0 DYSPAREUNIA 12/20/2011 LE GILMORE PSYD L 626.4 IRREGULAR MENSTRUAL CYCLE 12/20/2011 LE GILMORE PSYD L V65.45 STD COUNSELING 12/20/2011 LE GILMORE PSYD V74.5 STD SCREEN 12/20/2011 CESILIA CANALES MD 478.19 Rhinorrhea 12/20/2011 CESILIA CANALES MD 625.0 Dyspareunia 12/20/2011 CESILIA CANALES MD 626.4 Irregular Menstrual Cycle 12/20/2011 CESILIA CANALES MD V65.45 Std Counseling 12/20/2011 CESILIA CANALES MD V74.5 Std Screen 12/20/2011 478.19 Rhinorrhea 12/20/2011 625.0 Dyspareunia 12/20/2011 626.4 Irregular Menstrual Cycle 12/20/2011 V65.45 Std Counseling 12/20/2011 V74.5 Std Screen 12/20/2011 478.19 Rhinorrhea 12/20/2011 625.0 Dyspareunia 12/20/2011 626.4 Irregular Menstrual Cycle 12/20/2011 V65.45 Std Counseling 12/20/2011 V74.5 Std Screen 12/20/2011 478.19 Rhinorrhea 12/20/2011 625.0 Dyspareunia 12/20/2011 626.4 Irregular Menstrual Cycle 12/20/2011 V65.45 Std Counseling 12/20/2011 V74.5 Std Screen 12/20/2011 WHITE DDS, CHAN D 478.19 Rhinorrhea 12/20/2011 WHITE DDS, CHAN D 625.0 Dyspareunia 12/20/2011 WHITE DDS, CHAN D 626.4 Irregular Menstrual Cycle 12/20/2011 WHITE DDS, CHAN D V65.45 Std Counseling 12/20/2011 WHITE DDS, CHAN D V74.5 Std Screen 12/20/2011 SERVIN DO URSZULA K 478.19 Rhinorrhea 12/20/2011 SERVIN DOALEXA K 625.0 Dyspareunia 12/20/2011 SERVIN DO URSZULA K 626.4 Irregular Menstrual Cycle 12/20/2011 SERVIN URSZULA K V65.45 Std Counseling 12/20/2011 GARETH WOOTEN URSZULA K V74.5 Std Screen 12/20/2011 MADL PLACEMENT SPECIALIST, DANE L 478.19 Rhinorrhea 12/20/2011 MADL PLACEMENT SPECIALIST, DANE L 625.0 Dyspareunia 12/20/2011 MADL PLACEMENT SPECIALIST, DANE L 626.4 Irregular Menstrual Cycle 12/20/2011 MADL PLACEMENT SPECIALIST, DANE L V65.45 Std Counseling 12/20/2011 MADL PLACEMENT SPECIALIST, DANE L V74.5 Std Screen 12/20/2011 MADL PLACEMENT SPECIALIST, DANE L 478.19 Rhinorrhea 12/20/2011 MADL PLACEMENT SPECIALIST, DANE L 625.0 Dyspareunia 12/20/2011 DANE ZAVALA APRN L 626.4 Irregular Menstrual Cycle 12/20/2011 NILA ZAVALA APRNA L V65.45 Std Counseling 12/20/2011 NILA ZAVALA APRNA L V74.5 Std Screen 12/20/2011 USHA THAKKAR, MELISSA A 478.19 Rhinorrhea 12/20/2011 USHA THAKKAR, MELISSA A 625.0 Dyspareunia 12/20/2011 USHA THAKKAR, MELISSA A 626.4 Irregular Menstrual Cycle 12/20/2011 USHA LANGN, MELISSA A V65.45 Std Counseling 12/20/2011 USHA THAKKAR, MELISSA A V74.5 Std Screen 12/20/2011 USHA THAKKAR, MELISSA A 478.19 Rhinorrhea 12/20/2011 USHA THAKKAR, MELISSA A 625.0 Dyspareunia 12/20/2011 USHA THAKKAR, MELISSA A 626.4 Irregular Menstrual Cycle 12/20/2011 USHA APRN, MELISSA A V65.45 Std Counseling 12/20/2011 USHA THAKKAR, MELISSA A V74.5 Std Screen 12/20/2011 NILA ZAVALA APRNA L 478.19 Rhinorrhea 12/20/2011 DEBORAH NILA THAKKARA L 625.0 Dyspareunia 12/20/2011 NILA ZAVALA APRNA L 626.4 Irregular Menstrual Cycle 12/20/2011 DEBORAH NILA THAKKARA L V65.45 Std Counseling 12/20/2011 DEBORAH NILA THAKKARA L V74.5 Std Screen 12/20/2011 SERVIN DO, URSZULA K 478.19 Rhinorrhea 12/20/2011 SERVIN DO, URSZULA K 625.0 Dyspareunia 12/20/2011 SERVIN DO, URSZULA K 626.4 Irregular Menstrual Cycle 12/20/2011 SERVIN DO, URSZULA K V65.45 Std Counseling 12/20/2011 SERVIN DO, URSZULA K V74.5 Std Screen 12/20/2011 USHA THAKKAR, MELISSA A 478.19 Rhinorrhea 12/20/2011 USHA THAKKAR MELISSA A 625.0 Dyspareunia 12/20/2011 CRAIG KERR APRNIDI A 626.4 Irregular Menstrual Cycle 12/20/2011 USHA THAKKAR MELISSA A V65.45 Std Counseling 12/20/2011 CRAIG KERR APRNIDI A V74.5 Std Screen 12/20/2011 ZORAIDA HOLLEY LCPC B 478.19 Rhinorrhea 12/20/2011 ZORAIDA HOLLEY LCPC B 625.0 Dyspareunia 12/20/2011 ZORAIDA HOLLEY LCPC B 626.4 Irregular Menstrual Cycle 12/20/2011 ZORAIDA HOLLEY LCPC B V65.45 Std Counseling 12/20/2011 ZORAIDA HOLLEY LCPC B V74.5 Std Screen 12/20/2011 USHA THAKKAR MELISSA A 478.19 Rhinorrhea 12/20/2011 USHA THAKKAR MELISSA A 625.0 Dyspareunia 12/20/2011 USHA LANGMELISSA Acuna 626.4 Irregular Menstrual Cycle 12/20/2011 USHA LANGKalpana MELISSA A V65.45 Std Counseling 12/20/2011 USHA THAKKAR MELISSA A V74.5 Std Screen 12/20/2011 KYLE FERNANDEZ APRN 478.19 Rhinorrhea 12/20/2011 KYLE FERNANDEZ APRN 625.0 Dyspareunia 12/20/2011 KYLE FERNANDEZ APRN 626.4 Irregular Menstrual Cycle 12/20/2011 KYLE FERNANDEZ APRN V65.45 Std Counseling 12/20/2011 KYLE FERNANDEZ APRN V74.5 Std Screen 12/20/2011 URSZULA SERVIN DO 478.19 Rhinorrhea 12/20/2011 URSZULA SERVIN DO K 625.0 Dyspareunia 12/20/2011 ALEX SERVIN DOA K 626.4 Irregular Menstrual Cycle 12/20/2011 ALEX SERVIN DOA K V65.45 Std Counseling 12/20/2011 SERVIN ALEX WOOTENA K V74.5 Std Screen 12/20/2011 [facility], [place] Hdez 478.19 Rhinorrhea 12/20/2011 [facility], [place] Hdez 625.0 Dyspareunia 12/20/2011 [facility], [place] Hdez 626.4 Irregular Menstrual Cycle 12/20/2011 [facility], [place] R V65.45 Std Counseling 12/20/2011 [facility], [place] R V74.5 Std Screen 12/20/2011 SERVIN URSZULA WOOTEN K 478.19 Rhinorrhea 12/20/2011 GARETH WOOTENALEXA K 625.0 Dyspareunia 12/20/2011 SERVIN ALEX WOOTENA K 626.4 Irregular Menstrual Cycle 12/20/2011 SERVIN ALEX WOOTENA K V65.45 Std Counseling 12/20/2011 GARETH WOOTENALEXA K V74.5 Std Screen 12/20/2011 JAYCEE RAMOS, DOC Acuna 478.19 Rhinorrhea 12/20/2011 JAYCEE RAMOS, DOC Acuna 625.0 Dyspareunia 12/20/2011 JAYCEE RAMOS, DOC Acuna 626.4 Irregular Menstrual Cycle 12/20/2011 JAYCEE RAMOS, DOC Acuna V65.45 Std Counseling 12/20/2011 JAYCEE RAOMS, DOC Acuna V74.5 Std Screen 12/20/2011 SERVIN URSZULA WOOTEN K 478.19 Rhinorrhea 12/20/2011 SERVIN ALEX WOOTENA K 625.0 Dyspareunia 12/20/2011 SERVIN ALEX WOOTENA K 626.4 Irregular Menstrual Cycle 12/20/2011 SERVIN ALEX WOOTENA K V65.45 Std Counseling 12/20/2011 SERVIN ALEX WOOTENA K V74.5 Std Screen 12/20/2011 MELISSA KERR APRN A 478.19 Rhinorrhea 12/20/2011 MELISSA KERR APRN A 625.0 Dyspareunia 12/20/2011 MELISSA KERR APRN A 626.4 Irregular Menstrual Cycle 12/20/2011 MELISSA KERR APRN A V65.45 Std Counseling 12/20/2011 MELISSA KERR APRN A V74.5 Std Screen 02/27/2012 079.98 UNSPECIFIED CHLAMYDIAL INFECTION 02/27/2012 614.3 ACUTE PARAMETRITIS AND PELVIC CELLULITIS 02/27/2012 V25.02 CONTRACEPTION - ANY METHOD 02/27/2012 CESILIA CANALES MD 079.98 UNSPECIFIED CHLAMYDIAL INFECTION 02/27/2012 CESILIA CANALES MD 614.3 ACUTE PARAMETRITIS AND PELVIC CELLULITIS 02/27/2012 CESILIA CANALES MD V25.02 CONTRACEPTION - ANY METHOD 02/27/2012 LE GILMORE PSYD L 079.98 UNSPECIFIED CHLAMYDIAL INFECTION 02/27/2012 LE GILMORE PSYD L 614.3 ACUTE PARAMETRITIS AND PELVIC CELLULITIS 02/27/2012 LE GILMORE PSYD L V25.02 CONTRACEPTION - ANY METHOD 02/27/2012 CESILIA CANALES MD 079.98 Unspecified Chlamydial Infection 02/27/2012 CESILIA CANALES MD 614.3 Acute Parametritis And Pelvic Cellulitis 02/27/2012 CESILIA CANALES MD V25.02 Contraception - Any Method 02/27/2012 079.98 Unspecified Chlamydial Infection 02/27/2012 614.3 Acute Parametritis And Pelvic Cellulitis 02/27/2012 V25.02 Contraception - Any Method 02/27/2012 079.98 Unspecified Chlamydial Infection 02/27/2012 614.3 Acute Parametritis And Pelvic Cellulitis 02/27/2012 V25.02 Contraception - Any Method 02/27/2012 079.98 Unspecified Chlamydial Infection 02/27/2012 614.3 Acute Parametritis And Pelvic Cellulitis 02/27/2012 V25.02 Contraception - Any Method 02/27/2012 CHAN DUNN DDS 079.98 Unspecified Chlamydial Infection 02/27/2012 SHAUN FORMANSCHAN 614.3 Acute Parametritis And Pelvic Cellulitis 02/27/2012 SHAUN FORMANSCHAN V25.02 Contraceptives 02/27/2012 SERVIN ALEX WOOTENA K 079.98 Unspecified Chlamydial Infection 02/27/2012 SERVIN ALEX WOOTENA K 614.3 Acute Parametritis And Pelvic Cellulitis 02/27/2012 SERVIN DO URSZULA K V25.02 Contraceptives 02/27/2012 MADMitzy PLACEMENT SPECIALISTNILA AcunaA L 079.98 Unspecified Chlamydial Infection 02/27/2012 DEBORAHL PLACEMENT SPECIALISTNILAA L 614.3 Acute Parametritis And Pelvic Cellulitis 02/27/2012 MADL PLACEMENT SPECIALISTNILA AcunaA L V25.02 Contraceptives 02/27/2012 SALLY PLACEMENT SPECIALISTNILA AcunaA L 079.98 Unspecified Chlamydial Infection 02/27/2012 DEBORAHL PLACEMENT SPECIALIST DANE L 614.3 Acute Parametritis And Pelvic Cellulitis 02/27/2012 DEBORAHL PLACEMENT SPECIALIST, DANE L V25.02 Contraceptives 02/27/2012 USHA PLACEMENT SPECIALISTMELISSA Acuna A 079.98 Unspecified Chlamydial Infection 02/27/2012 USHACRAIG Acuna APRNIDI A 614.3 Acute Parametritis And Pelvic Cellulitis 02/27/2012 USHA CRAIG THAKKARIDI A V25.02 Contraceptives 02/27/2012 USHA CRAIG THAKKARIDI A 079.98 Unspecified Chlamydial Infection 02/27/2012 USHA MELISSA THAKKAR A 614.3 Acute Parametritis And Pelvic Cellulitis 02/27/2012 USHAMELISSA Acuna APRN A V25.02 Contraceptives 02/27/2012 DEBORAH PLACEMENT SPECIALIST, DANE L 079.98 Unspecified Chlamydial Infection 02/27/2012 DEBORAH PLACEMENT SPECIALISTDANE Acuna L 614.3 Acute Parametritis And Pelvic Cellulitis 02/27/2012 DEBORAH PLACEMENT SPECIALIST, DANE L V25.02 Contraceptives 02/27/2012 SERVIN DO URSZULA K 079.98 Unspecified Chlamydial Infection 02/27/2012 SERVIN DO URSZULA K 614.3 Acute Parametritis And Pelvic Cellulitis 02/27/2012 SERVIN DO URSZULA K V25.02 Contraceptives 02/27/2012 USHAMELISSA Acuna APRN A 079.98 Unspecified Chlamydial Infection 02/27/2012 USHAMELISSA Acuna APRN A 614.3 Acute Parametritis And Pelvic Cellulitis 02/27/2012 USHACRAIG Acuna APRNIDI A V25.02 Contraceptives 02/27/2012 ZORAIDA HOLLEY LCPC 079.98 Unspecified Chlamydial Infection 02/27/2012 ZORAIDA HOLLEY LCPC 614.3 Acute Parametritis And Pelvic Cellulitis 02/27/2012 ZORAIDA HOLLEY LCPC B V25.02 Contraceptives 02/27/2012 USHAMELISSA Acuna APRN A 079.98 Unspecified Chlamydial Infection 02/27/2012 USHAMELISSA Acuna APRN A 614.3 Acute Parametritis And Pelvic Cellulitis 02/27/2012 MELISSA KERR APRN V25.02 Contraceptives 02/27/2012 KYLE FERNANDEZ APRN 079.98 Unspecified Chlamydial Infection 02/27/2012 KYLE FERNANDEZ APRN 614.3 Acute Parametritis And Pelvic Cellulitis 02/27/2012 KYLE FERNANDEZ APRN V25.02 Contraceptives 02/27/2012 URSZULA SERVIN DO 079.98 Unspecified Chlamydial Infection 02/27/2012 URSZULA SERVIN DO 614.3 Acute Parametritis And Pelvic Cellulitis 02/27/2012 URSZULA SERVIN DO V25.02 CONTRACEPTIVES 02/27/2012 [facility], [place] R 079.98 Unspecified Chlamydial Infection 02/27/2012 [facility], [place] R 614.3 Acute Parametritis And Pelvic Cellulitis 02/27/2012 [facility], [place] R V25.02 CONTRACEPTIVES 02/27/2012 URSZULA SERVIN DO 079.98 Unspecified Chlamydial Infection 02/27/2012 URSZULA SERVIN DO 614.3 Acute Parametritis And Pelvic Cellulitis 02/27/2012 URSZULA SERVIN DO V25.02 CONTRACEPTIVES 02/27/2012 DOC CHAMPION MD 079.98 Unspecified Chlamydial Infection 02/27/2012 DOC CHAMPION MD 614.3 Acute Parametritis And Pelvic Cellulitis 02/27/2012 DOC CHAMPION MD V25.02 CONTRACEPTIVES 02/27/2012 URSZULA SERVIN DO 079.98 Unspecified Chlamydial Infection 02/27/2012 URSZULA SERVIN DO 614.3 Acute Parametritis And Pelvic Cellulitis 02/27/2012 URSZULA SERVIN DO V25.02 CONTRACEPTIVES 02/27/2012 MELISSA KERR APRN 079.98 Unspecified Chlamydial Infection 02/27/2012 MELISSA KERR APRN 614.3 Acute Parametritis And Pelvic Cellulitis 02/27/2012 MELISSA KERR APRN V25.02 CONTRACEPTIVES 07/28/2012 Ot 276.8 07/28/2012 Ot 300.01 07/28/2012 Ot 305.1 07/28/2012 Ot 305.20 07/28/2012 Ot 780.52 07/28/2012 Ot 965.1 07/28/2012 Ot 965.4 07/28/2012 Ot E849.0 07/28/2012 Ot E850.3 07/28/2012 Ot E850.4 08/07/2012 CESILIA CANALES MD 300.02 AN GEN ANXIETY 08/07/2012 CESILIA CANALES MD 300.21 AN PANIC DIS W AGORA 08/07/2012 LE GILMORE PSYD L 300.02 AN GEN ANXIETY 08/07/2012 LE GILMORE PSYD L 300.21 AN PANIC DIS W AGORA 08/07/2012 CESILIA CANALES MD 300.02 An Gen Anxiety 08/07/2012 CESILIA CANALES MD 300.21 An Panic Dis W [place] 08/07/2012 300.02 An Gen Anxiety 08/07/2012 300.21 An Panic Dis W [place] 08/07/2012 300.02 An Gen Anxiety 08/07/2012 300.21 An Panic Dis W [place] 08/07/2012 300.02 An Gen Anxiety 08/07/2012 300.21 An Panic Dis W [place] 08/07/2012 WHITE DDS, CHAN D 300.02 An Gen Anxiety 08/07/2012 WHITE DDS, CHAN D 300.21 An Panic Dis W [place] 08/07/2012 SERVIN DO, URSZULA K 300.02 An Gen Anxiety 08/07/2012 SERVIN DO, URSZULA K 300.21 An Panic Dis W [place] 08/07/2012 MADL PLACEMENT SPECIALIST, DANE L 300.02 An Gen Anxiety 08/07/2012 MADL PLACEMENT SPECIALIST, DANE L 300.21 An Panic Dis W [place] 08/07/2012 MADL PLACEMENT SPECIALIST, DANE L 300.02 An Gen Anxiety 08/07/2012 MADL PLACEMENT SPECIALIST, DANE L 300.21 An Panic Dis W [place] 08/07/2012 USHA PLACEMENT SPECIALIST, MELISSA A 300.02 An Gen Anxiety 08/07/2012 USHA PLACEMENT SPECIALIST, MELISSA A 300.21 An Panic Dis W [place] 08/07/2012 USHA PLACEMENT SPECIALIST, MELISSA A 300.02 An Gen Anxiety 08/07/2012 USHA PLACEMENT SPECIALIST, MELISSA A 300.21 An Panic Dis W [place] 08/07/2012 MADL PLACEMENT SPECIALIST, DANE L 300.02 An Gen Anxiety 08/07/2012 MADL PLACEMENT SPECIALIST, DANE L 300.21 An Panic Dis [place] 08/07/2012 SERVIN DO, URSZULA K 300.02 An Gen Anxiety 08/07/2012 SERVIN DO, URSZULA K 300.21 An Panic Dis W [place] 08/07/2012 USHA PLACEMENT SPECIALIST, MELISSA A 300.02 An Gen Anxiety 08/07/2012 USHA PLACEMENT SPECIALIST, MELISSA A 300.21 An Panic Dis W [place] 08/07/2012 KISHAN VENDING STAND SUPERVISOR, ZORAIDA B 300.02 An Gen Anxiety 08/07/2012 KISHAN VENDING STAND SUPERVISOR, ZORAIDA B 300.21 An Panic Dis W [place] 08/07/2012 USHA PLACEMENT SPECIALIST, MELISSA A 300.02 An Gen Anxiety 08/07/2012 USHA PLACEMENT SPECIALIST, MELISSA A 300.21 An Panic Dis W [place] 08/07/2012 JIM PLACEMENT SPECIALIST, KYLE J 300.02 An Gen Anxiety 08/07/2012 JIM PLACEMENT SPECIALIST, KYLE J 300.21 An Panic Dis [place] 08/07/2012 SERVIN DO, URSZULA K 300.02 An Gen Anxiety 08/07/2012 SERVIN DO, URSZULA K 300.21 An Panic Dis W [place] 08/07/2012 [facility], [place] R 300.02 An Gen Anxiety 08/07/2012 [facility], [place] R 300.21 An Panic Dis W [place] 08/07/2012 SERVIN DO, URSZULA K 300.02 An Gen Anxiety 08/07/2012 SERVIN DO, URSZULA K 300.21 An Panic Dis W [place] 08/07/2012 DOC CHAMPION MD 300.02 An Gen Anxiety 08/07/2012 DOC CHAMPION MD 300.21 An Panic Dis W [place] 08/07/2012 SERVIN DO, URSZULA K 300.02 An Gen Anxiety 08/07/2012 SERVIN DO, URSZULA K 300.21 An Panic Dis W [place] 08/07/2012 USHA PLACEMENT SPECIALIST, MELISSA A 300.02 An Gen Anxiety 08/07/2012 USHA PLACEMENT SPECIALIST, MELISSA A 300.21 An Panic Dis W [place] 08/21/2012 CESILIA CANALES MD 300.00 ANXIETY UNSPEC 08/21/2012 CESILIA CANALES MD 780.52 insomnia 08/21/2012 LE GILMORE PSYD 300.00 ANXIETY UNSPEC 08/21/2012 LE GILMORE PSYD 780.52 insomnia 08/21/2012 CESILIA CANALES MD 300.00 ANXIETY UNSPEC 08/21/2012 CESILIA CANALES MD 780.52 insomnia 08/21/2012 300.00 anxiety 08/21/2012 780.52 insomnia 08/21/2012 300.00 anxiety 08/21/2012 780.52 insomnia 08/21/2012 300.00 anxiety 08/21/2012 780.52 insomnia 08/21/2012 WHITE DDS, CHAN D 300.00 anxiety 08/21/2012 WHITE DDS, CHAN D 780.52 insomnia 08/21/2012 SERVIN DO, URSZULA K 300.00 anxiety 08/21/2012 SERVIN DO, URSZULA K 780.52 insomnia 08/21/2012 MADL PLACEMENT SPECIALIST, DANE L 300.00 anxiety 08/21/2012 MADL PLACEMENT SPECIALIST, DANE L 780.52 insomnia 08/21/2012 MADL PLACEMENT SPECIALIST, DANE L 300.00 anxiety 08/21/2012 MADL PLACEMENT SPECIALIST, DANE L 780.52 insomnia 08/21/2012 USHA PLACEMENT SPECIALIST, MELISSA A 300.00 anxiety 08/21/2012 USHA PLACEMENT SPECIALIST, MELISSA A 780.52 insomnia 08/21/2012 USHA PLACEMENT SPECIALIST, MELISSA A 300.00 anxiety 08/21/2012 USHA PLACEMENT SPECIALIST, MELISSA A 780.52 insomnia 08/21/2012 MADL PLACEMENT SPECIALIST, DANE L 300.00 anxiety 08/21/2012 MADL PLACEMENT SPECIALIST, DANE L 780.52 insomnia 08/21/2012 SERVIN DO, URSZULA K 300.00 anxiety 08/21/2012 SERVIN DO, URSZULA K 780.52 insomnia 08/21/2012 USHA PLACEMENT SPECIALIST, MELISSA A 300.00 anxiety 08/21/2012 USHA PLACEMENT SPECIALIST, MELISSA A 780.52 insomnia 08/21/2012 ZORAIDA HOLLEY LCPC B 300.00 anxiety 08/21/2012 ZORAIDA HOLLEY LCPC B 780.52 insomnia 08/21/2012 USHA PLACEMENT SPECIALIST, MELISSA A 300.00 anxiety 08/21/2012 MELISSA KERR APRN A 780.52 insomnia 08/21/2012 JIM PLACEMENT SPECIALIST, KYLE J 300.00 anxiety 08/21/2012 JIM PLACEMENT SPECIALIST, KYLE J 780.52 insomnia 08/21/2012 SERVIN DO, URSZULA K 300.00 anxiety 08/21/2012 SERVIN DO, URSZULA K 780.52 insomnia 08/21/2012 [facility], [place] R 300.00 anxiety 08/21/2012 [facility], [place] R 780.52 insomnia 08/21/2012 SERVIN DO, URSZULA K 300.00 anxiety 08/21/2012 SERVIN DO, URSZULA K 780.52 insomnia 08/21/2012 DOC CHAMPION MD 300.00 anxiety 08/21/2012 DOC CHAMPION MD 780.52 insomnia 08/21/2012 SERVIN DO, URSZULA K 300.00 anxiety 08/21/2012 SERVIN , URSZULA K 780.52 insomnia 08/21/2012 USHA THAKKAR, MELISSA A 300.00 anxiety 08/21/2012 MELISSA KERR APRN A 780.52 insomnia 10/26/2012 Ot 784.0 10/28/2012 CESILIA CANALES MD 346.90 MIGRAINE UNSPECIFIED WITHOUT MENTION OF INTRACTABLE MIGRAINE WITHOUT MENTION OF STATUS MIGRAINOSUS 10/28/2012 346.90 MIGRAINE UNSPECIFIED WITHOUT MENTION OF INTRACTABLE MIGRAINE WITHOUT MENTION OF STATUS MIGRAINOSUS 10/28/2012 346.90 MIGRAINE UNSPECIFIED WITHOUT MENTION OF INTRACTABLE MIGRAINE WITHOUT MENTION OF STATUS MIGRAINOSUS 10/28/2012 346.90 MIGRAINE UNSPECIFIED WITHOUT MENTION OF INTRACTABLE MIGRAINE WITHOUT MENTION OF STATUS MIGRAINOSUS 10/28/2012 CHAN DUNN DDS 346.90 MIGRAINE UNSPECIFIED WITHOUT MENTION OF INTRACTABLE MIGRAINE WITHOUT MENTION OF STATUS MIGRAINOSUS 10/28/2012 URSZULA SERVIN DO 346.90 MIGRAINE UNSPECIFIED WITHOUT MENTION OF INTRACTABLE MIGRAINE WITHOUT MENTION OF STATUS MIGRAINOSUS 10/28/2012 DANE ZAVALA APRN 346.90 MIGRAINE UNSPECIFIED WITHOUT MENTION OF INTRACTABLE MIGRAINE WITHOUT MENTION OF STATUS MIGRAINOSUS 10/28/2012 DANE ZAVALA APRN 346.90 MIGRAINE UNSPECIFIED WITHOUT MENTION OF INTRACTABLE MIGRAINE WITHOUT MENTION OF STATUS MIGRAINOSUS 10/28/2012 MELISSA KERR APRN A 346.90 MIGRAINE UNSPECIFIED WITHOUT MENTION OF INTRACTABLE MIGRAINE WITHOUT MENTION OF STATUS MIGRAINOSUS 10/28/2012 MELISSA KERR APRN A 346.90 MIGRAINE UNSPECIFIED WITHOUT MENTION OF INTRACTABLE MIGRAINE WITHOUT MENTION OF STATUS MIGRAINOSUS 10/28/2012 DANE ZAVALA APRN 346.90 MIGRAINE UNSPECIFIED WITHOUT MENTION OF INTRACTABLE MIGRAINE WITHOUT MENTION OF STATUS MIGRAINOSUS 10/28/2012 URSZULA SERVIN DO 346.90 MIGRAINE UNSPECIFIED WITHOUT MENTION OF INTRACTABLE MIGRAINE WITHOUT MENTION OF STATUS MIGRAINOSUS 10/28/2012 MELISSA KERR APRN A 346.90 MIGRAINE UNSPECIFIED WITHOUT MENTION OF INTRACTABLE MIGRAINE WITHOUT MENTION OF STATUS MIGRAINOSUS 10/28/2012 ZORAIDA HOLLEY LCPC 346.90 MIGRAINE UNSPECIFIED WITHOUT MENTION OF INTRACTABLE MIGRAINE WITHOUT MENTION OF STATUS MIGRAINOSUS 10/28/2012 MELISSA KERR APRN A 346.90 MIGRAINE UNSPECIFIED WITHOUT MENTION OF INTRACTABLE MIGRAINE WITHOUT MENTION OF STATUS MIGRAINOSUS 10/28/2012 KYLE FERNANDEZ APRN 346.90 MIGRAINE UNSPECIFIED WITHOUT MENTION OF INTRACTABLE MIGRAINE WITHOUT MENTION OF STATUS MIGRAINOSUS 10/28/2012 URSZULA SERVIN DO 346.90 MIGRAINE UNSPECIFIED WITHOUT MENTION OF INTRACTABLE MIGRAINE WITHOUT MENTION OF STATUS MIGRAINOSUS 10/28/2012 [facility], [place] R 346.90 MIGRAINE UNSPECIFIED WITHOUT MENTION OF INTRACTABLE MIGRAINE WITHOUT MENTION OF STATUS MIGRAINOSUS 10/28/2012 URSZULA SERVIN DO 346.90 MIGRAINE UNSPECIFIED WITHOUT MENTION OF INTRACTABLE MIGRAINE WITHOUT MENTION OF STATUS MIGRAINOSUS 10/28/2012 JAYCEE RAMOS, DOC [facility] 346.90 MIGRAINE UNSPECIFIED WITHOUT MENTION OF INTRACTABLE MIGRAINE WITHOUT MENTION OF STATUS MIGRAINOSUS 10/28/2012 URSZULA SERVIN DO 346.90 MIGRAINE UNSPECIFIED WITHOUT MENTION OF INTRACTABLE MIGRAINE WITHOUT MENTION OF STATUS MIGRAINOSUS 10/28/2012 MELISSA KERR APRN A 346.90 MIGRAINE UNSPECIFIED WITHOUT MENTION OF INTRACTABLE MIGRAINE WITHOUT MENTION OF STATUS MIGRAINOSUS 12/26/2012 V25.9 CONTRACEPTION MANAGEMENT 12/26/2012 V25.9 CONTRACEPTION MANAGEMENT 12/26/2012 CHAN DUNN DDS V25.9 CONTRACEPTION MANAGEMENT 12/26/2012 URSZULA SERVIN DO V25.9 CONTRACEPTION MANAGEMENT 12/26/2012 MADL PLACEMENT SPECIALISTDANE [employer] V25.9 CONTRACEPTION MANAGEMENT 12/26/2012 DANE ZAVALA APRN V25.9 CONTRACEPTION MANAGEMENT 12/26/2012 USHA PLACEMENT SPECIALIST, MELISSA A V25.9 CONTRACEPTION MANAGEMENT 12/26/2012 USHA PLACEMENT SPECIALIST, MELISSA A V25.9 CONTRACEPTION MANAGEMENT 12/26/2012 MADL PLACEMENT SPECIALIST, DANE L V25.9 CONTRACEPTION MANAGEMENT 12/26/2012 SERVIN DO, URSZULA K V25.9 CONTRACEPTION MANAGEMENT 12/26/2012 USHA PLACEMENT SPECIALIST, MELISSA A V25.9 CONTRACEPTION MANAGEMENT 12/26/2012 KISHAN PARKERPC, ZORAIDA Yadav V25.9 CONTRACEPTION MANAGEMENT 12/26/2012 USHA PLACEMENT SPECIALIST, MELISSA A V25.9 CONTRACEPTION MANAGEMENT 12/26/2012 JIM PLACEMENT SPECIALIST, KYLE Seay V25.9 CONTRACEPTION MANAGEMENT 12/26/2012 SERVIN DO, URSZULA K V25.9 CONTRACEPTION MANAGEMENT 12/26/2012 [facility], MAY Hdez V25.9 CONTRACEPTION MANAGEMENT 12/26/2012 SERVIN DO, URSZULA K V25.9 CONTRACEPTION MANAGEMENT 12/26/2012 JAYCEE RAMOS, DOC [employer] V25.9 CONTRACEPTION MANAGEMENT 12/26/2012 SERVIN DO, URSZULA K V25.9 CONTRACEPTION MANAGEMENT 12/26/2012 USHA PLACEMENT SPECIALIST, MELISSA A V25.9 CONTRACEPTION MANAGEMENT 05/07/2013 WHITE DDS, CHAN D 078.19 OTHER SPECIFIED VIRAL WARTS 05/07/2013 WHITE DDS, CHAN D 799.2 anxiety 05/07/2013 SERVIN DO, URSZULA K 078.19 OTHER SPECIFIED VIRAL WARTS 05/07/2013 SERVIN DO, URSZULA K 799.2 anxiety 05/07/2013 MADL PLACEMENT SPECIALIST, DANE L 078.19 OTHER SPECIFIED VIRAL WARTS 05/07/2013 MADL PLACEMENT SPECIALIST, DANE L 799.2 ANXIETY 05/07/2013 MADL PLACEMENT SPECIALIST, DANE L 078.19 OTHER SPECIFIED VIRAL WARTS 05/07/2013 MADL PLACEMENT SPECIALIST, DANE L 799.2 ANXIETY 05/07/2013 USHA PLACEMENT SPECIALIST, MELISSA A 078.19 OTHER SPECIFIED VIRAL WARTS 05/07/2013 USHA PLACEMENT SPECIALIST, MELISSA A 799.2 ANXIETY 05/07/2013 USHA PLACEMENT SPECIALIST, MELISSA A 078.19 OTHER SPECIFIED VIRAL WARTS 05/07/2013 USHA PLACEMENT SPECIALIST, MELISSA A 799.2 ANXIETY 05/07/2013 MADL PLACEMENT SPECIALIST, DANE L 078.19 OTHER SPECIFIED VIRAL WARTS 05/07/2013 MADL PLACEMENT SPECIALIST, DANE L 799.2 ANXIETY 05/07/2013 SERVIN DO, URSZULA K 078.19 OTHER SPECIFIED VIRAL WARTS 05/07/2013 SERVIN DO, URSZULA K 799.2 ANXIETY 05/07/2013 USHA PLACEMENT SPECIALIST, MELISSA A 078.19 OTHER SPECIFIED VIRAL WARTS 05/07/2013 USHA PLACEMENT SPECIALIST, MELISSA A 799.2 ANXIETY 05/07/2013 KISHAN VENDING STAND SUPERVISOR, ZORAIDA B 078.19 OTHER SPECIFIED VIRAL WARTS 05/07/2013 KISHAN VENDING STAND SUPERVISOR, ZORAIDA B 799.2 ANXIETY 05/07/2013 USHA PLACEMENT SPECIALIST, MELISSA A 078.19 OTHER SPECIFIED VIRAL WARTS 05/07/2013 USHA PLACEMENT SPECIALIST, MELISSA A 799.2 ANXIETY 05/07/2013 JIM PLACEMENT SPECIALIST, KYLE J 078.19 OTHER SPECIFIED VIRAL WARTS 05/07/2013 JIM PLACEMENT SPECIALIST, KYLE J 799.2 ANXIETY 05/07/2013 SERVIN DO, URSZULA K 078.19 OTHER SPECIFIED VIRAL WARTS 05/07/2013 SERVIN DO, URSZULA K 799.2 ANXIETY 05/07/2013 [facility], MAY R 078.19 OTHER SPECIFIED VIRAL WARTS 05/07/2013 [facility], MAY R 799.2 ANXIETY 05/07/2013 SERVIN DO, URSZULA K 078.19 OTHER SPECIFIED VIRAL WARTS 05/07/2013 SERVIN DO, URSZULA K 799.2 ANXIETY 05/07/2013 DOC CHAMPION MD N 078.19 OTHER SPECIFIED VIRAL WARTS 05/07/2013 DOC CHAMPION MD 799.2 ANXIETY 05/07/2013 SERVIN DO, URSZULA K 078.19 OTHER SPECIFIED VIRAL WARTS 05/07/2013 SERVIN DO, URSZULA K 799.2 ANXIETY 05/07/2013 USHA PLACEMENT SPECIALIST, MELISSA A 078.19 OTHER SPECIFIED VIRAL WARTS 05/07/2013 USHA PLACEMENT SPECIALIST, MELISSA A 799.2 ANXIETY 03/04/2014 BRO RAMOS, ANG Valencia Ot 599.0 03/04/2014 BRO RAMOS, ANG Valencia Ot 789.09 03/09/2014 MADL PLACEMENT SPECIALIST, DANE L 599.0 URINARY TRACT INFECTION 03/09/2014 MADL PLACEMENT SPECIALIST, DANE L 625.9 UNSPECIFIED SYMPTOM ASSOCIATED WITH FEMALE GENITAL ORGANS 03/09/2014 USHA PLACEMENT SPECIALIST, MELISSA A 599.0 URINARY TRACT INFECTION 03/09/2014 USHA PLACEMENT SPECIALIST, MELISSA A 625.9 UNSPECIFIED SYMPTOM ASSOCIATED WITH FEMALE GENITAL ORGANS 03/09/2014 USHA PLACEMENT SPECIALIST, MELISSA A 599.0 URINARY TRACT INFECTION 03/09/2014 USHA PLACEMENT SPECIALIST, MELISSA A 625.9 UNSPECIFIED SYMPTOM ASSOCIATED WITH FEMALE GENITAL ORGANS 03/09/2014 MADL PLACEMENT SPECIALIST, DANE L 599.0 URINARY TRACT INFECTION 03/09/2014 MADL PLACEMENT SPECIALIST, DNAE L 625.9 UNSPECIFIED SYMPTOM ASSOCIATED WITH FEMALE GENITAL ORGANS 03/09/2014 GARETH DO URSZULA K 599.0 URINARY TRACT INFECTION 03/09/2014 SERVIN DO URSZULA K 625.9 UNSPECIFIED SYMPTOM ASSOCIATED WITH FEMALE GENITAL ORGANS 03/09/2014 USHA PLACEMENT SPECIALIST, MELISSA A 599.0 URINARY TRACT INFECTION 03/09/2014 USHA PLACEMENT SPECIALIST, MELISSA A 625.9 UNSPECIFIED SYMPTOM ASSOCIATED WITH FEMALE GENITAL ORGANS 03/09/2014 ZORAIDA HOLLEY [facility] B 599.0 URINARY TRACT INFECTION 03/09/2014 ZORIADA HOLLEY [facility] B 625.9 UNSPECIFIED SYMPTOM ASSOCIATED WITH FEMALE GENITAL ORGANS 03/09/2014 USHA PLACEMENT SPECIALIST, MELISSA A 599.0 URINARY TRACT INFECTION 03/09/2014 USHA PLACEMENT SPECIALIST, MELISSA A 625.9 UNSPECIFIED SYMPTOM ASSOCIATED WITH FEMALE GENITAL ORGANS 03/09/2014 KYLE FERNANDEZ APRN J 599.0 URINARY TRACT INFECTION 03/09/2014 KYLE FERNANDEZ APRN J 625.9 UNSPECIFIED SYMPTOM ASSOCIATED WITH FEMALE GENITAL ORGANS 03/09/2014 SERVIN DO URSZULA K 599.0 URINARY TRACT INFECTION 03/09/2014 SERVIN DO URSZULA K 625.9 UNSPECIFIED SYMPTOM ASSOCIATED WITH FEMALE GENITAL ORGANS 03/09/2014 [facility] 03/09/2014 [facility], MAY R 625.9 UNSPECIFIED SYMPTOM ASSOCIATED WITH FEMALE GENITAL ORGANS 03/09/2014 SERVIN DO, URSZULA K 599.0 URINARY TRACT INFECTION 03/09/2014 SERVIN DO, URSZULA K 625.9 UNSPECIFIED SYMPTOM ASSOCIATED WITH FEMALE GENITAL ORGANS 03/09/2014 DOC CHAMPION MD N 599.0 URINARY TRACT INFECTION 03/09/2014 DOC CHAMPION MD 625.9 UNSPECIFIED SYMPTOM ASSOCIATED WITH FEMALE GENITAL ORGANS 03/09/2014 SERVIN DO, URSZULA K 599.0 URINARY TRACT INFECTION 03/09/2014 SERVIN DO, URSZULA K 625.9 UNSPECIFIED SYMPTOM ASSOCIATED WITH FEMALE GENITAL ORGANS 03/09/2014 USHA PLACEMENT SPECIALIST, MELISSA A 599.0 URINARY TRACT INFECTION 03/09/2014 USHA PLACEMENT SPECIALIST, MELISSA A 625.9 UNSPECIFIED SYMPTOM ASSOCIATED WITH FEMALE GENITAL ORGANS 03/12/2014 USHA PLACEMENT SPECIALIST, MELISSA A V72.42 TEST POSITIVE RESULT 03/12/2014 USHA PLACEMENT SPECIALIST, MELISSA A V72.42 TEST POSITIVE RESULT 03/12/2014 DANE ZAVALA APRN V72.42 TEST POSITIVE RESULT 03/12/2014 SERVIN DO, URSZULA K V72.42 TEST POSITIVE RESULT 03/12/2014 USHA PLACEMENT SPECIALIST, MELISSA A V72.42 TEST POSITIVE RESULT 03/12/2014 KISHAN VENDING STAND SUPERVISORZORAIDA BROWN V72.42 TEST POSITIVE RESULT 03/12/2014 USHA PLACEMENT SPECIALIST, MELISSA A V72.42 TEST POSITIVE RESULT 03/12/2014 KYLE FERNANDEZ APRN V72.42 TEST POSITIVE RESULT 03/12/2014 SERVIN DO, URSZULA K V72.42 TEST POSITIVE RESULT 03/12/2014 [facility], MAY R V72.42 TEST POSITIVE RESULT 03/12/2014 SERVIN DO, URSZULA K V72.42 TEST POSITIVE RESULT 03/12/2014 DOC CHAMPION MD V72.42 TEST POSITIVE RESULT 03/12/2014 SERVIN DO, URSZULA K V72.42 TEST POSITIVE RESULT 03/12/2014 USHALUZ THAKKAR MELISSA A V72.42 TEST POSITIVE RESULT 03/30/2014 ANG CRABTREE MD Ot 640.03 03/30/2014 ANG CRABTREE MD Ot 648.93 03/30/2014 ANG CRABTREE MD Ot 789.09 04/27/2014 MELISSA KERR APRN A 625.8 OTHER SPECIFIED SYMPTOMS ASSOCIATED WITH FEMALE GENITAL ORGANS 04/27/2014 USHA APRN, MELISSA A V22.1 , NORMAL OTHER 04/27/2014 [facility] HOLLEY [facility] 625.8 OTHER SPECIFIED SYMPTOMS ASSOCIATED WITH FEMALE GENITAL ORGANS 04/27/2014 ZORAIDA HOLLEY [facility] V22.1 , NORMAL OTHER 04/27/2014 USHA THAKKAR, MELISSA A 625.8 OTHER SPECIFIED SYMPTOMS ASSOCIATED WITH FEMALE GENITAL ORGANS 04/27/2014 USHACRAIG Acuna APRNIDI A V22.1 , NORMAL OTHER 04/27/2014 KYLE FERNANDEZ APRN 625.8 OTHER SPECIFIED SYMPTOMS ASSOCIATED WITH FEMALE GENITAL ORGANS 04/27/2014 KYLE FERNANDEZ APRN V22.1 , NORMAL OTHER 04/27/2014 ALEX SERVIN DOA K 625.8 OTHER SPECIFIED SYMPTOMS ASSOCIATED WITH FEMALE GENITAL ORGANS 04/27/2014 GARETH WOOTEN URSZULA K V22.1 , NORMAL OTHER 04/27/2014 [facility], MAY R 625.8 OTHER SPECIFIED SYMPTOMS ASSOCIATED WITH FEMALE GENITAL ORGANS 04/27/2014 [facility], MAY R V22.1 , NORMAL OTHER 04/27/2014 SERVIN DO URSZULA K 625.8 OTHER SPECIFIED SYMPTOMS ASSOCIATED WITH FEMALE GENITAL ORGANS 04/27/2014 SERVIN DO URSZULA K V22.1 , NORMAL OTHER 04/27/2014 DOC CHAMPION MD 625.8 OTHER SPECIFIED SYMPTOMS ASSOCIATED WITH FEMALE GENITAL ORGANS 04/27/2014 DOC CHAMPION MD V22.1 , NORMAL OTHER 04/27/2014 SERVIN DO URSZULA K 625.8 OTHER SPECIFIED SYMPTOMS ASSOCIATED WITH FEMALE GENITAL ORGANS 04/27/2014 SERVIN DO URSZULA K V22.1 , NORMAL OTHER 04/27/2014 MELISSA KERR APRN A 625.8 OTHER SPECIFIED SYMPTOMS ASSOCIATED WITH FEMALE GENITAL ORGANS 04/27/2014 MELISSA KERR APRN A V22.1 , NORMAL OTHER 05/06/2014 [facility] HOLLEY [facility] 311 DEPRESSIVE DISORDER NOS 05/06/2014 USHA THAKKAR MELISSA A 311 DEPRESSIVE DISORDER NOS 05/06/2014 KYLE FERNANDEZ APRN 311 DEPRESSIVE DISORDER NOS 05/06/2014 URSZULA SERVIN DO K 311 DEPRESSIVE DISORDER NOS 05/06/2014 [facility], MAY R 311 DEPRESSIVE DISORDER NOS 05/06/2014 URSZULA SERVIN DO K 311 DEPRESSIVE DISORDER NOS 05/06/2014 DOC CHAMPION MD 311 DEPRESSIVE DISORDER NOS 05/06/2014 URSZULA SERVIN DO K 311 DEPRESSIVE DISORDER NOS 05/06/2014 MELISSA KERR APRN A 311 DEPRESSIVE DISORDER NOS 05/25/2014 USHALUZ THAKKAR, MELISSA A 131.01 TRICHOMONAL VULVOVAGINITIS 05/25/2014 MELISSA KERR APRN A V74.5 STD SCREEN 05/25/2014 MELISSA KERR APRN A V76.2 CERVICAL CANCER SCREENING (PAP SMEAR) 05/25/2014 KYLE FERNANDEZ APRN 131.01 TRICHOMONAL VULVOVAGINITIS 05/25/2014 KYLE FERNANDEZ APRN V74.5 STD SCREEN 05/25/2014 KYLE FERNANDEZ APRN V76.2 CERVICAL CANCER SCREENING (PAP SMEAR) 05/25/2014 URSZULA SERVIN DO K 131.01 TRICHOMONAL VULVOVAGINITIS 05/25/2014 URSZULA SERVIN DO K V74.5 STD SCREEN 05/25/2014 URSZULA SERVIN DO K V76.2 CERVICAL CANCER SCREENING (PAP SMEAR) 05/25/2014 [facility], MAY R 131.01 TRICHOMONAL VULVOVAGINITIS 05/25/2014 [facility], MAY R V74.5 STD SCREEN 05/25/2014 [facility], MAY R V76.2 CERVICAL CANCER SCREENING (PAP SMEAR) 05/25/2014 URSZULA SERVIN DO K 131.01 TRICHOMONAL VULVOVAGINITIS 05/25/2014 URSZULA SERVIN DO K V74.5 STD SCREEN 05/25/2014 URSZULA SERVIN DO V76.2 CERVICAL CANCER SCREENING (PAP SMEAR) 05/25/2014 DOC CHAMPION MD 131.01 TRICHOMONAL VULVOVAGINITIS 05/25/2014 DOC CHAMPION MD V74.5 STD SCREEN 05/25/2014 DOC CHAMPION MD V76.2 CERVICAL CANCER SCREENING (PAP SMEAR) 05/25/2014 URSZULA SERVIN DO 131.01 TRICHOMONAL VULVOVAGINITIS 05/25/2014 URSZULA SERVIN DO V74.5 STD SCREEN 05/25/2014 SERVIN URSZULA WOOTEN V76.2 CERVICAL CANCER SCREENING (PAP SMEAR) 05/25/2014 USHA APRN, MELISSA A 131.01 TRICHOMONAL VULVOVAGINITIS 05/25/2014 USHA PLACEMENT SPECIALIST, MELISSA A V74.5 STD SCREEN 05/25/2014 USHA PLACEMENT SPECIALIST, MELISSA A V76.2 CERVICAL CANCER SCREENING (PAP SMEAR) 06/29/2014 URSZULA SERVIN DO 493.90 ASTHMA UNSPECIFIED 06/29/2014 URSZULA SERVIN DO V04.81 FLU SHOT 06/29/2014 [facility], MAY R 493.90 ASTHMA UNSPECIFIED 06/29/2014 [facility], MAY R V04.81 FLU SHOT 06/29/2014 URSZULA SERVIN DO 493.90 ASTHMA UNSPECIFIED 06/29/2014 URSZULA SERVIN DO V04.81 FLU SHOT 06/29/2014 DOC CHAMPION MD 493.90 ASTHMA UNSPECIFIED 06/29/2014 DOC CHAMPION MD V04.81 FLU SHOT 06/29/2014 URSZULA SERVIN DO 493.90 ASTHMA UNSPECIFIED 06/29/2014 SERVIN URSZULA WOOTEN V04.81 FLU SHOT 06/29/2014 USHA APRN, MELISSA A 493.90 ASTHMA UNSPECIFIED 06/29/2014 USHA PLACEMENT SPECIALIST, MELISSA A V04.81 FLU SHOT 07/02/2014 MADL, DANE L MAINTENANCE CUSTODIAN Ot 620.2 07/02/2014 Ot V28.89 07/13/2014 MADL, DANE L MAINTENANCE CUSTODIAN Ot 620.2 07/13/2014 Ot V28.89 08/03/2014 URSZULA SERVIN DO 465.9 UPPER RESPIRATORY INFECTION 08/03/2014 [facility], MAY R 465.9 UPPER RESPIRATORY INFECTION 08/03/2014 URSZULA SERVIN DO 465.9 UPPER RESPIRATORY INFECTION 08/03/2014 DOC CHAMPION MD 465.9 UPPER RESPIRATORY INFECTION 08/03/2014 URSZULA SERVIN DO 465.9 UPPER RESPIRATORY INFECTION 08/03/2014 MELISSA KERR APRN 465.9 UPPER RESPIRATORY INFECTION 08/04/2014 URSZULA SERVIN DO Ot V28.81 09/09/2014 DANE ZAVALA Ot 620.2 09/09/2014 Ot V28.89 09/09/2014 URSZULA SERVIN DO Ot V28.81 09/21/2014 URSZULA SERVIN DO V06.1 TDAP DX 09/21/2014 URSZULA SERVIN DO V77.1 DIABETES SCREENING 09/21/2014 ALEX SERVIN DOA K V78.0 ANEMIA SCREENING 09/21/2014 DOC CHAMPION MD V06.1 TDAP DX 09/21/2014 DOC CHAMPION MD V77.1 DIABETES SCREENING 09/21/2014 DOC CHAMPION MD V78.0 ANEMIA SCREENING 09/21/2014 URSZULA SERVIN DO V06.1 TDAP DX 09/21/2014 URSZULA SERVIN DO V77.1 DIABETES SCREENING 09/21/2014 URSZULA SERVIN DO V78.0 ANEMIA SCREENING 09/21/2014 MELISSA KERR APRN V06.1 TDAP DX 09/21/2014 MELISSA KERR APRN V77.1 DIABETES SCREENING 09/21/2014 MELISSA KERR APRN V78.0 ANEMIA SCREENING 10/05/2014 URSZULA SERVIN DO 682.9 CELLULITIS AND ABSCESS OF UNSPECIFIED SITES 10/05/2014 DOC CHAMPION MD 682.9 CELLULITIS AND ABSCESS OF UNSPECIFIED SITES 10/05/2014 URSZULA SERVIN DO 682.9 CELLULITIS AND ABSCESS OF UNSPECIFIED SITES 10/05/2014 MLEISSA KERR APRN 682.9 CELLULITIS AND ABSCESS OF UNSPECIFIED SITES 10/11/2014 GEOFFREY RAMOS, JOURDAN Seay Ot V22.1 10/19/2014 URSZULA SERVIN DO V28.6 GBS SCREENING 10/19/2014 DOC CHAMPION MD V28.6 GBS SCREENING 10/19/2014 URSZULA SERVIN DO V28.6 GBS SCREENING 10/19/2014 MELISSA KERR APRN V28.6 GBS SCREENING 10/21/2014 URSZULA SERVIN DO Ot 659.73 11/11/2014 JAYCEE RAMOS, DOC Acuna Ot 648.93 11/11/2014 JAYCEE RAMOS, DOC Acuna Ot 796.2 11/23/2014 URSZULA SERVIN DO Ot 644.03 11/28/2014 URSZULA SERVIN DO Ot 645.11 11/28/2014 URSZULA SERVIN DO Ot 653.41 11/28/2014 URSZULA SERVIN DO Ot 660.11 11/28/2014 URSZULA SERVIN DO Ot 661.21 11/28/2014 URSZULA SERVIN DO Ot V27.0 04/30/2015 EDITA BAXTER Ot N93.9 04/30/2015 EDITA BAXTER Ot R10.13 04/30/2015 EDITA BAXTER Ot R10.2 04/30/2015 EDITA BAXTER Ot R11.2 Procedures Code Description [place] [address] THERAPUTIC INJ SQ/IM 07/26/2012 J1055 DEPO-PROVERA INJ 150 MG 07/26/2012 01698 URINE TEST (IN-HOUSE) 07/26/2012 84590 ROUTINE VENIPUNCTURE 08/21/2012 27532 UA LONG DIP 08/21 70383 URINE TEST (IN-HOUSE) 08/21/2012 21360 A1C (IN-HOUSE) 96881 CBC 08/21/2012 80214 CMP 08/21/2012 0337017 GFR CALC (RESULT ONLY) 08/21/2012 41991 TSH 08/22/2012 58003 PSYTX PT&/FAMILY 45 MINUTES 09/02/2012 65368 THERAPUTIC INJ SQ/IM 12/26/2012 J1050 DEPO PROVERA 96005 GC/CHLAM URINE (STATE) 12/26/2012 19538 URINE TEST (IN-HOUSE) 12/26/2012 33924 ROUTINE VENIPUNCTURE 03/09/2014 24855 US PELVIC COMPL (REFLEX CPT- 55155) 03/09/2014 32519 UA W/ CULTURE IF INDICATED 03/09/2014 07162 CBC 03/09/2014 55439 ROUTINE VENIPUNCTURE 03/16/2014 64183 HCG QUANTITATIVE 03/16/2014 16523 US OB - TRANSVAGINAL 03/20/2014 94451 ROUTINE VENIPUNCTURE 04/27/2014 02971 UA W/ CULTURE IF INDICATED 04/27/2014 16941 SYPHILLIS-STATE LAB 04/27/2014 28973 HIV (STATE LAB) 04/27/2014 26696 ANTIBODY SCREEN (order) 04/27/2014 72389 HEP B SURFACE ANTIGEN ([facility]) 04/27/2014 34998 CBC 04/27/2014 02335 TSH 04/27/2014 0766142 ANTIBODY SCREEN (RESULT ONLY) 04/28/2014 77259 BLOOD TYPE/Rh FACTOR 04/28/2014 58864 RUBELLA ANTIBODY, IGG 04/28/2014 42771 CULTURE URINE 19972 PSYCH DIAGNOSTIC EVALUATION 05/08/2014 97249 GC/CHLAM PROBE ([facility]) 05/25/2014 17366 PAP SMEAR 2013 Q0091 PAP SMEAR OBTAIN SMEAR 05/25/2014 80070 UA OB DIP 2013 53164 TRICHOMONAS (IN-HOUSE) 05/25/2014 42354 CULTURE UROGENITAL 05/26/2014 08288 UA OB DIP 2014 78503 PSYCH DIAGNOSTIC EVALUATION 08/06/2014 04458 UA OB DIP 2014 78356 UA OB DIP 2014 30864 CULTURE GROUP B STREP VAG 10/21/2014 02214 UA OB DIP 2014 04463 UA OB DIP 2014 78653 UA OB DIP 2014 Results Encounters ACCT No. Visit Date/Time Discharge Status Pt. Type Provider Facility Loc./Unit Complaint [id number] 11/16/2014 13:54:00 11/16/2014 23: 59:59 CLS Outpatient MELISSA KERR APRN [id number] 11/09/2014 14:17:00 11/09/2014 23: 59:59 CLS Outpatient URSZULA SERVIN DO [id number] 11/05/2014 15:28:00 11/05/2014 23: 59:59 CLS Outpatient DOC CHAMPION MD [id number] 10/19/2014 15:13:00 10/19/2014 23: 59:59 CLS Outpatient URSZULA SERVIN DO [id number] 08/06/2014 15:05:00 08/06/2014 23: 59:[id number] 15:05:00 08/03/2014 23: 59:59 CLS Outpatient GARETH WOOTENURSZULA [id number] 06/29/2014 14:54:00 06/29/2014 23: 59:59 CLS Outpatient GARETH WOOTENURSZULA [id number] 06/11/2014 09:45:00 06/11/2014 23: 59:59 CLS Outpatient KYLE FERNANDEZ APRN [place] [id number] 05/25/2014 13:25:00 05/25/2014 23: 59:59 CLS Outpatient USHACRAIG Acuna APRNAYSHA Mcneal [id number] 05/06/2014 14:45:00 05/06/2014 23: 59:59 CLS Outpatient ZORAIDA HOLLEY LCPC [id number] 04/27/2014 13:45:00 04/27/2014 23: 59:59 CLS Outpatient USHA PLACEMENT SPECIALISTCRAIGMELISSA A [id number] 04/09/2014 13:33:00 04/09/2014 23: 59:59 CLS Outpatient GARETH WOOTENURSZULA [id number] 03/16/2014 09:00:00 03/16/2014 23: 59:59 CLS Outpatient USHA PLACEMENT SPECIALISTMELISSA Fredis [id number] 03/12/2014 08:51:00 03/12/2014 23: 59:59 CLS Outpatient USHA PLACEMENT SPECIALISTMELISSA Fredis [id number] 03/09/2014 10:28:00 03/09/2014 23: 59:59 CLS Outpatient DEBORAH PLACEMENT SPECIALISTVAHIDDANE L [id number] 03/09/2014 10:28:00 03/09/2014 23: 59:59 CLS Outpatient DEBORAH VAHID THAKKARWNYA L [id number] 02/06/2014 10:15:00 02/06/2014 23: 59:59 CLS Outpatient SALLY LANGNVAHIDDANE L [id number] 12/29/2013 15:32:00 12/29/2013 23: 59:59 CLS Outpatient GARETH WOOTENURSZULA [id number] 05/20/2013 13:27:00 05/20/2013 23: 59:59 CLS Outpatient CHAN DUNN DDS [id number] 10/28/2012 16:29:00 10/28/2012 23: 59:59 CLS Outpatient CESILIA CANALES MD [id number] 08/29/2012 07:56:00 08/29/2012 23: 59:59 CLS Outpatient LE GILMORE PSYD [id number] 08/21/2012 13:52:00 08/21/2012 23: 59:59 CLS Outpatient CESILIA CANALES MD [id number] 07/26/2012 16:30:00 07/26/2012 23: 59:59 CLS Outpatient [id number] 03/06/2013 16:41:00 Document Registration [id number] 12/26/2012 10:58:00 Document Registration [id number] 11/06/2012 09:46:00 Document Registration
--- OUTSIDE RECORDS SUMMARY | 2017-01-23 23:37 | XMS REPORT ---
Author Author DANE ZAVALA Organization [employer] Address Unknown Phone Unavailable Care Team Providers Care Water Analyst Name Role Phone DANE ZAVALA CP Unavailable Allergies, Adverse Reactions, Alerts Substance Reaction Event Type N.K.D.A. Info Not Available Non Drug Allergy Problems Problem Type Condition ICD-9 Code Onset Dates Condition Status Assessment Encounter for Depo-Provera contraception V25.49 Active Assessment Contraception management V25.9 Active Medications Medication Code System Code Instructions Start Date End Date Status Dosage Low Iron [facility] [address]-05 27-1 mg Apr 10, 2014 take 1 tablet by oral route once daily Symbicort [facility] [address]-81 80-4.5 mcg/actuation Aug 21, 2012 2 puffs by Inhalation route 2 times per day for 30 day(s) Depo-Provera [facility] [address]-42 150 MG/ML Intramuscular q 3 months Mar 31, 2015 1 ml Procedures Procedure Coding System Code Date Office Visit, Est Pt., Level 3 CPT-4 84458 Mar 31, 2015 DEPO PROVERA (150 MG/ML) CPT-4 J1050 Mar 31, 2015 URINE TEST CPT-4 78335 Mar 31, 2015 THER/PROPH/DIAG INJ, SC/IM CPT-4 07269 Mar 31, 2015 Vital Signs Date/Time: Mar 31, 2015 Temperature 98.5 F Weight 175.1 lbs Height 67 in BMI 27.42 Index Blood Pressure Diastolic 72 mmHg Blood Pressure Systolic 126 mmHg Cardiac Monitoring Heart Rate 80 bpm Results Name Result Date Reference Range Unit Abnormality Flag TEST, URINE (IN HOUSE) Summary Purpose [employer]ClinicalWorks Submission
--- OUTSIDE RECORDS SUMMARY | 2017-01-23 23:37 | XMS REPORT ---
Author Author KYLE FERNANDEZ [employer] Address Unknown Phone Unavailable Care Team Providers Care Laser Engraver Name Role Phone KYLE FERNANDEZ CP Unavailable Allergies No Known Allergies Problems Problem Type Condition Code Onset Dates Condition Status Problem Bipolar disorder, current episode mixed, severe, with psychotic features F31.64 Active Problem Depression F32.9 Active Problem Acne, unspecified acne type L70.9 Active Problem Intractable migraine with aura without status migrainosus G43.119 Active Problem ADHD (attention deficit hyperactivity disorder), combined type F90.2 Active Problem PTSD (post-traumatic stress disorder) F43.10 Active Problem TANNA (generalized anxiety disorder) F41.1 Active Problem Galactorrhea O92.6 Active Problem Bipolar I disorder, most recent episode mixed, severe without psychotic features F31.63 Active Medications Medication Code System Code Instructions Start Date End Date Status Dosage Methylphenidate HCl [facility] [address]-23 10 mg Orally Once a day at 3pm for task completion Apr 25, 2016 1 tablet Results No Known Results Summary Purpose [employer]Clinical[employer] Submission
--- OUTSIDE RECORDS SUMMARY | 2017-01-23 23:37 | XMS REPORT ---
Author Author DANE ZAVALA [facility] [employer] Address Unknown Phone Unavailable Care Team Providers Care Implementation Director Name Role Phone DANE ZAVALA CP Unavailable Allergies, Adverse Reactions, Alerts Substance Reaction Event Type N.K.D.A. Info Not Available Non Drug Allergy Problems Problem Type Condition Code Onset Dates Condition Status Problem Anxiety F41.9 Active Assessment Depression F32.9 Active Problem Depression F32.9 Active Assessment Anxiety F41.9 Active Medications Medication Code System Code Instructions Start Date End Date Status Dosage Zoloft [facility] [address]-83 50 MG Orally twice a day Aug 05, 2015 1/2 tablet Klonopin [facility] [address]-40 0.5 MG Orally Twice a day prn Aug 05, 2015 1 tablet Procedures Procedure Coding System Code Date Office Visit, Est Pt., Level 4 CPT-4 89474 Aug 05, 2015 Vital Signs Date/Time: Aug 05, 2015 Temperature 98.1 F Weight 167.0 lbs Height 67 in BMI 26.15 Index Blood Pressure Diastolic 78 mmHg Blood Pressure Systolic 108 mmHg Cardiac Monitoring Heart Rate 80 bpm Results No Known Results Summary Purpose [employer]ClinicalWorks Submission
--- OUTSIDE RECORDS SUMMARY | 2017-01-23 23:37 | XMS REPORT ---
Author Author TRUE FUENTES [facility] e[employer] Address Unknown Phone Unavailable Care Team Providers Care Manager Search Name Role Phone TRUE FUENTES CP Unavailable Allergies No Known Allergies Problems Problem Type Condition Code Onset Dates Condition Status Problem Anxiety F41.9 Active Assessment Adjustment disorder with mixed anxiety and depressed mood F43.23 Active Problem Depression F32.9 Active Assessment Generalized anxiety disorder F41.1 Active Medications No Known Medications Procedures Procedure Coding System Code Date Psych diagnostic evaluation, new patient CPT-4 93265 Aug 05, 2015 Results No Known Results Summary Purpose [employer] Submission
--- OUTSIDE RECORDS SUMMARY | 2017-01-23 23:37 | XMS REPORT ---
Author KYLE Manuel [employer] Address Unknown Phone Unavailable Care Team Providers Care Employment Assistant Name Role Phone KYLE FERNANDEZ CP Unavailable Allergies, Adverse Reactions, Alerts Substance Reaction Event Type Latex rash Non Drug Allergy Problems Problem Type Condition Code Onset Dates Condition Status Assessment PTSD (post-traumatic stress disorder) F43.10 Active Problem Depression F32.9 Active Assessment Bipolar I disorder, most recent episode mixed, severe without psychotic features F31.63 Active Assessment TANNA (generalized anxiety disorder) F41.1 Active Problem [...] Start Date End Date Status Dosage Klonopin [facility] [address]-34 0.5 MG Orally 2 times a day as needed for anxiety 1 tablet Remeron [facility] [address]-56 15 MG Orally Once a day February 08, 2016 1 tablet before bedtime in the evening Depakote ER [facility] [address]-67 500 MG Orally 1 tab in AM and 2 tabs at HS Sep 23, 2015 1 tablet Procedures Procedure Coding System Code Date Office Visit, Est Pt., Level 4 CPT-4 69088 February 08, 2016 Vital Signs Date/Time: February 08, 2016 Cardiac Monitoring Heart Rate 76 bpm Weight 157.3 lbs Height 67 in Blood Pressure Diastolic 71 mmHg Blood Pressure Systolic 118 mmHg Results No Known Results Summary Purpose [employer]ClinicalWorks Submission
--- OUTSIDE RECORDS SUMMARY | 2017-01-23 23:37 | XMS REPORT ---
Author Author KYLE FERNANDEZ [employer] Address Unknown Phone Unavailable Care Team Providers Care Mobile Application Tester Name Role Phone KYLE FERNANDEZ CP Unavailable [...] Start Date End Date Status Dosage Concerta [facility] [address]-88 36 MG Orally for ADHD Jun 27, 2016 1 tablet in the morning Results No Known Results Summary Purpose [employer]ClinicalWorks Submission
--- OUTSIDE RECORDS SUMMARY | 2017-01-23 23:37 | XMS REPORT ---
Author Author JIM KYLE Organization [facility] Address [address] [place] [address] Care Team Providers Care Canvas Products Sales Representative Name Role Phone VINAY FERNANDEZA Unavailable PROBLEMS Type Condition ICD9-CM Code [id number] Code Onset Dates Condition Status SNOMED Code Problem Bipolar disorder, current episode mixed, severe, with psychotic features F31.64 Active 424803547 Problem Bipolar I disorder, most recent episode mixed, severe without psychotic features F31.63 Active 90523298 Problem TANNA (generalized anxiety disorder) F41.1 Active 88340642 Assessment Chronic post-traumatic stress disorder (PTSD) F43.12 Jun, Active 38502021 Problem Depression F32.9 Active 33835453 Problem Bipolar disorder in remission F31.70 Active 36050845 Problem Chronic post-traumatic stress disorder (PTSD) F43.12 Active 040040227 Problem Intractable migraine with aura without status migrainosus G43.119 Active 125050976 Problem Galactorrhea O92.6 Active 07227294 Problem ADHD (attention deficit hyperactivity disorder), combined type F90.2 Active 24635769 Problem Acne, unspecified acne type L70.9 Active 41614324 ALLERGIES Substance Reaction Event Type Date Status Latex rash Non Drug Allergy Jun, Active SOCIAL HISTORY No smoking Hx information available PLAN OF CARE VITAL SIGNS Height 67 in 2016-07-06 Weight 170.5 lbs 2016-07-06 Heart Rate 78 bpm 2016-07-06 Respiratory Rate 18 2016-07-06 BMI 26.70 kg/m2 2016-07-06 Blood pressure systolic 128 mmHg 2016-07-06 Blood pressure diastolic 68 mmHg 2016-07-06 MEDICATIONS Medication Instructions Dosage Frequency Start Date End Date Duration Status Remeron 30 MG Orally Once a day 1 tablet before bedtime in the evening 24h Jan, Active Concerta 36 MG Orally for ADHD 1 tablet in the morning May, Active Klonopin 0.5 MG Orally in the AM and at HS as needed for anxiety and sleep 1 tablet Active RESULTS No Results PROCEDURES Procedure Date Ordered Related Diagnosis Body Site Office Visit, Est Pt., Level 4 Jul 06, 2016 IMMUNIZATIONS No Known Immunizations
--- OUTSIDE RECORDS SUMMARY | 2017-01-23 23:37 | XMS REPORT ---
Author Author DANE ZAVALA [facility] eClinicalWorks Address Unknown Phone Unavailable Care Team Providers Care Stock Puller Name Role Phone DANE ZAVALA CP Unavailable Allergies No Known Allergies Problems Problem Type Condition Code Onset Dates Condition Status Problem Anxiety F41.9 Active Problem Depression F32.9 Active Medications Medication Code System Code Instructions Start Date End Date Status Dosage Klonopin [facility] [address]-12 0.5 MG Orally Twice a day prn 1 tablet Zoloft [facility] [address]-41 50 MG Orally twice a day 1/2 tablet Results No Known Results Summary Purpose eClinicalWorks Submission
--- OUTSIDE RECORDS SUMMARY | 2017-01-23 23:37 | XMS REPORT ---
Author Author TRUE FUENTES [facility] eClinical[employer] Address Unknown Phone Unavailable Care Team Providers Care Advertising Vice President Name Role Phone TRUE FUENTES CP Unavailable [...] Medications Procedures Procedure Coding System Code Date Psychotherapy, patient &/family, 30 minutes, established patient CPT-4 92335 November 09, 2015 Results No Known Results Summary Purpose [employer] Submission
--- OUTSIDE RECORDS SUMMARY | 2017-01-23 23:38 | XMS REPORT ---
Author Author TRUE FUENTES [facility] eClinicalWorks Address Unknown Phone Unavailable Care Team Providers Care Assistant Project Manager Name Role Phone TRUE FUENTES CP Unavailable Allergies No Known Allergies Problems Problem Type Condition Code Onset Dates Condition Status Problem Anxiety F41.9 Active Assessment Generalized anxiety disorder F41.1 Active Problem Depression F32.9 Active Assessment Panic attack F41.0 Active Assessment Major depression F32.9 Active Medications No Known Medications Procedures Procedure Coding System Code Date Psych diagnostic evaluation, new patient CPT-4 78178 Aug 06, 2015 Results No Known Results Summary Purpose [employer]ClinicalWorks Submission
--- OUTSIDE RECORDS SUMMARY | 2017-01-23 23:38 | XMS REPORT ---
Author Author TRUE FUENTES [facility] eClinicalWorks Address Unknown Phone Unavailable Care Team Providers Care Whey Department Operator Name Role Phone TRUE FUENTES CP Unavailable Allergies No Known Allergies Problems Problem Type Condition Code Onset Dates Condition Status Problem Anxiety F41.9 Active Assessment Depression F32.9 Active Problem Depression F32.9 Active Assessment Anxiety F41.9 Active Medications No Known Medications Procedures Procedure Coding System Code Date Psychotherapy, patient &/family, 30 minutes, established patient CPT-4 89043 Aug 17, 2015 Results No Known Results Summary Purpose eClinicalWorks Submission
--- OUTSIDE RECORDS SUMMARY | 2017-01-23 23:38 | XMS REPORT ---
Author Author MAGAN TAPIA [employer] Address Unknown Phone Unavailable Care Team Providers Care Rehab Manager Name Role Phone MAGAN TAPIA CP Unavailable Allergies, Adverse Reactions, Alerts Substance Reaction Event Type Latex rash Non Drug Allergy Problems Problem Type Condition Code Onset Dates Condition Status Problem Depression F32.9 Active Assessment Dental examination Z01.20 Active Problem Acne, unspecified acne type L70.9 Active Problem Intractable migraine with aura without status migrainosus G43.119 Active Problem ADHD (attention deficit hyperactivity disorder), combined type F90.2 Active Problem TANNA (generalized anxiety disorder) F41.1 Active Problem Bipolar disorder, current episode mixed, severe, with psychotic features F31.64 Active Problem Galactorrhea O92.6 Active Problem Bipolar I disorder, most recent episode mixed, severe without psychotic features F31.63 Active Medications Medication Code System Code Instructions Start Date End Date Status Dosage Remeron [facility] [address]-02 15 MG Orally Once a day February 08, 2016 1 tablet before bedtime in the evening Concerta [facility] [address]-26 27 MG Orally for ADHD Apr 13, 2016 May 11, 2016 1 tablet in the morning Depakote ER [facility] [address]-16 500 MG Orally 1 tab in AM and 2 tabs at HS Sep 23, 2015 1 tablet Klonopin [facility] [address]-49 0.5 MG Orally 2 times a day as needed for anxiety 1 tablet Procedures Procedure Coding System Code Date Billing Notes on claim CPT-4 EC109 Apr 19, 2016 RESIN COMPOS - 3 SURFACES ANTERIOR CPT-4 D2332 Apr 19, 2016 Vital Signs Date/Time: Apr 19, 2016 Blood Pressure Diastolic 68 mmHg Blood Pressure Systolic 123 mmHg Height 67 in Results No Known Results Summary Purpose eClinicalWorks Submission
--- OUTSIDE RECORDS SUMMARY | 2017-01-23 23:38 | XMS REPORT ---
Author Author DANE ZAVALA [facility] eClinicalWorks Address Unknown Phone Unavailable Care Team Providers Care Assembling Inspector Name Role Phone DANE ZAVALA CP Unavailable Allergies, Adverse Reactions, Alerts Substance Reaction Event Type N.K.D.A. Info Not Available Non Drug Allergy Problems Problem Type Condition Code Onset Dates Condition Status Problem Anxiety F41.9 Active Assessment Depression F32.9 Active Problem Depression F32.9 Active Assessment Anxiety F41.9 Active Medications Medication Code System Code Instructions Start Date End Date Status Dosage Klonopin [facility] [address]-19 0.5 MG Orally Twice a day prn 1 tablet Zoloft [facility] [address]-23 50 MG Orally twice a day 1/2 tablet fluticasone [facility] [address]-63 50 mcg/actuation Aug 03, 2014 inhale 1 spray (50 mcg) in each nostril by intranasal route 2 times per day Symbicort [facility] [address]-06 80-4.5 mcg/actuation Aug 21, 2012 2 puffs by Inhalation route 2 times per day for 30 day(s) Procedures Procedure Coding System Code Date Office Visit, Est Pt., Level 3 CPT-4 72331 Aug 17, 2015 Vital Signs Date/Time: Aug 17, 2015 Temperature 98.0 F Weight 168.6 lbs Height 67 in BMI 26.40 Index Blood Pressure Diastolic 62 mmHg Blood Pressure Systolic 118 mmHg Cardiac Monitoring Heart Rate 76 bpm Results No Known Results Summary Purpose eClinicalWorks Submission
--- OUTSIDE RECORDS SUMMARY | 2017-01-23 23:38 | XMS REPORT ---
Author Author KYLE FERNANDEZ Organization [facility] Address [address] [place] [address] Care Team Providers Care Aircraft Sales Representative Name Role Phone JIM KYLE Unavailable PROBLEMS Type Condition ICD9-CM Code [id number] Code Onset Dates Condition Status SNOMED Code Problem Depression F32.9 Active 60508244 Problem TANNA (generalized anxiety disorder) F41.1 Active 58395770 Problem Bipolar disorder, current episode mixed, severe, with psychotic features F31.64 Active 775726489 Problem Chronic post-traumatic stress disorder (PTSD) F43.12 Active 157409920 Problem ADHD (attention deficit hyperactivity disorder), combined type F90.2 Active 31473719 Problem Galactorrhea O92.6 Active 37929524 Problem Bipolar I disorder, most recent episode mixed, severe without psychotic features F31.63 Active 60877644 Problem Acne, unspecified acne type L70.9 Active 34238709 Problem Intractable migraine with aura without status migrainosus G43.119 Active 322420124 ALLERGIES Unknown Allergies SOCIAL HISTORY No smoking Hx information available PLAN OF CARE VITAL SIGNS MEDICATIONS Medication Instructions Dosage Frequency Start Date End Date Duration Status Methylphenidate HCl 10 mg Orally Once a day at 3pm for task completion 1 tablet Mar, Active RESULTS No Results PROCEDURES No Known procedures IMMUNIZATIONS No Known Immunizations
--- OUTSIDE RECORDS SUMMARY | 2017-01-23 23:38 | XMS REPORT ---
Author KYLE [facility] [employer]Clinical[employer] Address Unknown Phone Unavailable Care Team Providers Care Charting Clerk Name Role Phone KYLE FERNANDEZ CP Unavailable Allergies, Adverse Reactions, Alerts Substance Reaction Event Type Latex rash Non Drug Allergy Problems Problem Type Condition Code Onset Dates Condition Status Assessment Bipolar disorder, current episode mixed, severe, with psychotic features F31.64 Active Problem Bipolar disorder, current episode mixed, severe, with psychotic features F31.64 Active Problem Depression F32.9 Active Assessment Chronic post-traumatic stress disorder (PTSD) F43.12 Active Assessment ADHD (attention deficit hyperactivity disorder), combined type F90.2 Active Problem ADHD (attention deficit hyperactivity disorder), [...] Start Date End Date Status Dosage Klonopin [facility] [address]-52 0.5 MG Orally in the AM and at HS as needed for anxiety and sleep 1 tablet Concerta [facility] [address]-95 36 MG Orally for ADHD Apr 13, 2016 1 tablet in the morning Depakote ER [facility] [address]-20 500 MG Orally 1 tab in AM and 2 tabs at HS Sep 23, 2015 1 tablet Remeron [facility] [address]-61 30 MG Orally Once a day February 08, 2016 1 tablet before bedtime in the evening Procedures Procedure Coding System Code Date Office Visit, Est Pt., Level 4 CPT-4 81175 May 30, 2016 Vital Signs Date/Time: May 30, 2016 Cardiac Monitoring Heart Rate 104 bpm Weight 176.5 lbs Height 67 in BMI 27.64 Index Blood Pressure Diastolic 66 mmHg Blood Pressure Systolic 111 mmHg Results No Known Results Summary Purpose eClinicalWorks Submission
--- OUTSIDE RECORDS SUMMARY | 2017-01-23 23:38 | XMS REPORT ---
Author Author JIM KYLE Organization [facility] Address [address] [place] [address] Care Team Providers Care Eeg Technician Name Role Phone VINAY FERNANDEZA Unavailable PROBLEMS Type Condition ICD9-CM Code [id number] Code Onset Dates Condition Status SNOMED Code Assessment Bipolar disorder, current episode mixed, severe, with psychotic features F31.64 Mar, Active 147597602 Problem Bipolar disorder, current episode mixed, severe, with psychotic features F31.64 Active 573172182 Problem Depression F32.9 Active 88250503 Assessment PTSD (post-traumatic stress disorder) F43.10 Mar, Active 99892759 Problem ADHD (attention deficit hyperactivity disorder), combined type F90.2 Active 23662342 Problem Acne, unspecified acne type L70.9 Active 79243319 Problem Bipolar I disorder, most recent episode mixed, severe without psychotic features F31.63 Active 81225893 Problem TANNA (generalized anxiety disorder) F41.1 Active 18309328 Problem Intractable migraine with aura without status migrainosus G43.119 Active 847077089 Problem Galactorrhea O92.6 Active 48782875 ALLERGIES Substance Reaction Event Type Date Status Latex rash Non Drug Allergy Mar, Active SOCIAL HISTORY No smoking Hx information available PLAN OF CARE VITAL SIGNS Height 67 in 2016-04-13 Weight 169.5 lbs 2016-04-13 Heart Rate 76 bpm 2016-04-13 Respiratory Rate 18 2016-04-13 BMI 26.54 kg/m2 2016-04-13 Blood pressure systolic 110 mmHg 2016-04-13 Blood pressure diastolic 68 mmHg 2016-04-13 MEDICATIONS Medication Instructions Dosage Frequency Start Date End Date Duration Status Klonopin 0.5 MG Orally 2 times a day as needed for anxiety 1 tablet Active Remeron 15 MG Orally Once a day 1 tablet before bedtime in the evening 24h Jan, Active Depakote ER 500 MG Orally 1 tab in AM and 2 tabs at HS 1 tablet Aug, Active Concerta 27 MG Orally for ADHD 1 tablet in the morning Mar, Apr, 28 days Active RESULTS No Results PROCEDURES Procedure Date Ordered Related Diagnosis Body Site Office Visit, Est Pt., Level 4 Apr 13, 2016 IMMUNIZATIONS No Known Immunizations
[2017-01-24 00:01] LABS: BILIRUBIN,URINE NEGATIVE (NEGATIVE); KETONES,URINE NEGATIVE (NEGATIVE); LEUKOCYTE ESTERASE ,URINE 1+ (NEGATIVE); NITRITE,URINE NEGATIVE (NEGATIVE); PH,URINE 6 (5-9); PROTEIN,URINE NEGATIVE (NEGATIVE); UROBILINOGEN,URINE NORMAL (NORMAL)
[2017-01-24 00:13] LABS: WBC,URINE 0-2 /HPF
[2017-01-24] MEDS ORDERED: RX-ONDANSETRON 4 MG ODT (ZOFRAN) PPK #4 PO STA (00:52)
[2017-01-24] MEDS ORDERED: RX-NITROFURANTOIN 100 MG (MACROBID) CAP PPK#2 PO STA (00:52)
[2017-01-24] MEDS ORDERED: RX-HYOSCYAMINE 0.125 MG SL (LEVSIN) PPK#6 SL STA (00:52)
[2017-01-24] MEDS ORDERED: NITR-65 PO (00:55)
[2017-01-24] MEDS ORDERED: ONDA4TAB8 PO (00:55)
[2017-01-24] MEDS ORDERED: PANT40TA2 PO (00:55)
[2017-01-24] MEDS ORDERED: HYOS0.1283 SL (00:55)
--- NOTE | 2017-01-24 00:55 | ED GI ---
General Chief Complaint: Abdominal/GI Problems Stated Complaint: ABD PAIN PAIN,VOMITING X 3 DAYS Nursing Triage Note: Patient advises that she has been experiencing left lower quadrant pain and advises that she has been experiencing nausea and vomiting when eating. Sepsis Screen: No Definite Risk Source of Information: Patient History of Present Illness Time Seen By Provider: 23:45 Initial Comments PT AND CHILD ARE BOTH BEING SEEN TONIGHT FOR UNRELATED PROBLEMS--( CHILD HAD FEVER AND WAS BRINGING CHILD IN TO ER, SO DECIDED WHILE SHE WAS HERE, SHE WOULD JUST GET CHECKED TOO) PT HAS HAD ONGOING ISSUES WITH INTERMITTENT SHARP STABBING RANDOM PAIN ( MOVES AROUND ) IN LEFT MID STERNAL AREA AND LEFT LOWER LATERAL RIB AREA AND LUQ AREA OFF AND ON FOR 3 WEEKS, AND IS NOT ANY DIFFERENT TODAY AND IS NOT HAVING PAIN NOW PT HAS ALSO HAD NAUSEA AND VOMITING EVERY TIME SHE EATS FOR THE LAST 4-5 DAYS-- IS NOT NAUSEATED NOW STATES SHE IS NOT NAUSEATED OR VOMITING AT ANY OTHER TIME, ONLY AFTER SHE EATS. STATES FOR THE LAST WEEK SHE HAS NOT BEEN EATING AT ALL, BUT IS TAKING FLUIDS IN WELL AND STAY DOWN--DRINKING LOTS OF WATER AND COFFEE. STATES SHE HAS BEEN WORKING OUT ALOT FOR THE LAST FEW WEEKS STATES SHE WAS SEEN AT [facility] A COUPLE OF WEEKS AGO AND WAS STARTED ON A NEW BP MEDICATION--STATES "I GET ANXIOUS AND HAVE PANIC ATTACKS AND IT MAKES MY HEART RACE AND MY BP GOES UP" , BUT THESE SYMPTOMS WERE GOING ON PRIOR TO STARTING NEW MEDICATIONS. NEXT APPOINTMENT IS 02/06/17 FOR FOLLOW UP PT HAS NO SYMPTOMS OF ANY KIND RIGHT NOW LMP 3 MONTHS AGO, IS DUE FOR SHOT THIS WEEK PCP: [facility] Allergies and Home Medications Allergies Coded Allergies: latex (Unverified Allergy, Intermediate, 01/24/17) Home Medications Albuterol Sulfate 8.5 Gm Aer.w.adap, 8.5 GM IH PRN, (Reported) Budesonide/Formoterol Fumarate 10.2 Gm Hfa.aer.ad, 2 PUFF IH for SHORTNESS OF BREATH, (Reported) Famotidine 20 Mg Tablet, 20 MG PO BID, #30 Ref 0 Prescribed by: EDITA BIANCHI on 04/30/15 1746 Hyoscyamine Sulfate 0.125 Mg Tab.subl, 1-2 TAB SL Q4H, #10 Prescribed by: GREGORY BETHEA on 6/28/17 0055 Nitrofurantoin Monohyd/M-Cryst 100 Mg Capsule, 100 MG PO BID, #20 Prescribed by: GREGORY BETHEA on 01/24/1754 Ondansetron 4 Mg Tab.rapdis, 4 MG PO Q6H PRN for NAUSEA/VOMITING, #10 Ref 0 Prescribed by: EDITA BIANCHI on 04/30/15 174 Ondansetron 4 Mg Tab.rapdis, 4 MG PO Q4H, #10 Prescribed by: GREGORY BETHEA on 01/24/1754 Pantoprazole Sodium 40 Mg Tablet.dr, 40 MG PO DAILY, #15 Prescribed by: GREGORY BETHEA on 01/24/1754 Review of Systems Constitutional: no symptoms reported, No dizziness, No fever, No malaise, No weakness, weight gain, weight loss EENTM: No Symptoms Reported Respiratory: No Symptoms Reported Cardiovascular: See HPI Gastrointestinal: See HPI Genitourinary: No Symptoms Reported Musculoskeletal: see HPI Skin: no symptoms reported Psychiatric/Neurological: See HPI, Anxiety Endocrine: No Symptoms Reported Hematologic/Lymphatic: No Symptoms Reported Past [place]-Viaajs Hx Patient Social History Alcohol Use: Occasionally Uses Recreational Drug Use: No Smoking Status: Former Smoker (OCCASIONAL SMOKING IN PAST) Former Smoker/When Quit: Feb 27, 2015 Recent Foreign Travel: No Contact w/Someone Who Travel: No Recent Infectious Disease Expo: No Recent Hopitalizations: No Immunizations Up To Date Tetanus Booster (TDap): Less than 5yrs Date of Influenza Vaccine: Jun 29, 2014 Seasonal Allergies Seasonal Allergies: No Surgeries HX Surgeries: Yes (BACK NEUROSTIMULATOR FOR OVERACTIVE BLADDER) Surgeries: Bladder Surgery, Neurological Respiratory Hx Respiratory Disorders: Yes Respiratory Disorders: Asthma Cardiovascular Hx Cardiac Disorders: No Neurological Hx Neurological Disorders: Yes Neurological Disorders: Headaches /Migraines Reproductive System Hx Reproductive Disorders: No Sexually Transmitted Disease: No HIV/AIDS: No Female Reproductive Disorders: Denies Genitourinary Hx Genitourinary Disorders: Yes (NEUROSTIMULATOR IN BACK WITH LEAD PLACEMENT FOR OVERACTIVE BLADDER) Genitourinary Disorders: Neurogenic Bladder Gastrointestinal Hx Gastrointestinal Disorders: No Musculoskeletal Hx Musculoskeletal Disorders: No Endocrine Hx Endocrine Disorders: No HEENT HX ENT Disorders: No Cancer Hx Cancer: No Psychosocial Hx Psychiatric Problems: Yes (OVERDOSED, BUT NEVER TOLD ANYONE. ) Behavioral Health Disorders: Anxiety, Suicide Attempts, Depression Integumentary HX Skin/Integumentary Disorder: No Blood Transfusions Hx Blood Disorders: No Adverse Reaction to a Blood Tr: No Family Medical History Family Medial History: Asthma 19 MOTHER Hypertension 19 FATHER Respiratory disorder 19 FATHER No Family History of: AIDS Abdominal aortic aneurysm Kingsley's disease Alcoholism Alzheimer's disease Aphasia Arthritis Cancer of mouth Cardiovascular disease Cataracts Colon cancer Completed stroke Congenital disease Congenital heart disease Coronary thrombosis Cystic fibrosis Deafness or hearing loss Dementia Diabetes mellitus Drug abuse Dysphasia Fibrocystic disease of breast Gastroenteritis Glaucoma Headache disorder Hypercholesterolemia Infertility Kidney disease Myocardial infarction Neoplasm Not obtainable due to adoption Osteoporosis Parkinson's disease Prostate cancer Psychosocial problem Seizure disorder Severe allergy Thyroid disease Tuberculosis Visual disorder Physical Exam Vital Signs VS - Last 72 Hours, by Label 01/24/17 01/24/17 00:11 01:08 Temp 98.3 Pulse 94 84 Resp 14 16 B/P (MAP) 128/91 Pulse Ox 96 97 O2 Delivery Room Air Room Air Capillary Refill : Less Than 3 Seconds General Appearance: WD/WN, no apparent distress, other (SMILING, VERY TALKATIVE. DOES NOT APPEAR TO BE IN ANY DISCOMFORT OR DISTRESS) Neck: normal inspection Respiratory: normal breath sounds, no respiratory distress, no accessory muscle use Cardiovascular: regular rate, rhythm, no murmur Gastrointestinal: normal bowel sounds, soft, no organomegaly, No distended, No guarding, No rebound, tenderness (MILD SUPRAPUBIC TENDERNESS), No hernia, No mass Extremities: normal inspection, no pedal edema, no calf tenderness, normal capillary refill Back: normal inspection, no CVA tenderness Neurologic/Psychiatric: secretary specialist II-XII nml as tested, no motor/sensory deficits, alert, oriented x 3 Skin: normal color, warm/dry, tattoos/piercings (TATTOOS) Progress/Results/Core Measures Results/Orders Lab Results Laboratory Tests Test 01/23/17 23:56 Range/Units Urine Color YELLOW Urine Clarity CLEAR Urine pH 6 5-9 Urine Specific [place] 1.015 L 1.016-1.022 Urine Protein NEGATIVE NEGATIVE Urine Glucose (UA) NEGATIVE NEGATIVE Urine Ketones NEGATIVE NEGATIVE Urine Nitrite NEGATIVE NEGATIVE Urine Bilirubin NEGATIVE NEGATIVE Urine Urobilinogen NORMAL NORMAL MG/DL Urine Leukocyte Esterase 1+ H NEGATIVE Urine RBC (Auto) 1+ H NEGATIVE Urine RBC 0-2 /HPF Urine WBC 0-2 /HPF Urine Squamous Epithelial Cells 2-5 /HPF Urine Crystals NONE /LPF Urine Bacteria TRACE /HPF Urine Casts NONE /LPF Urine Mucus SMALL H /LPF Urine Culture Indicated NO My Orders Orders - GREGORY BETHEA DO Urine Bedside (01/23/17 23:48) Ua Culture If Indicated (01/23/17 23:48) Pantoprazole Tablet (Protonix Tablet) (01/24/17 01:00) Rx-Hyoscyamine Tab (Rx-Levsin Sl) (01/24/17 00:52) Rx-Ondansetron Po (Rx-Zofran Po) (01/24/17 00:52) Rx-Nitrofurantoin [place] (Rx-Macrobid) (01/24/17 00:52) Medications Given in ED Current Medications Medications Dose Ordered Sig/Ivy Route Start Time Stop Time Status Last Admin Dose Admin Pantoprazole Sodium 40 mg ONCE ONCE PO 01/24/17 01:00 01/24/17 01:01 DC 01/24/17 01:12 40 MG Vital Signs/I&O Vital Sign - Last 12Hours 01/24/17 01/24/17 00:11 01:08 Temp 98.3 Pulse 94 84 Resp 14 16 B/P (MAP) 128/91 Pulse Ox 96 97 O2 Delivery Room Air Room Air Blood Pressure Mean: 103 Point of Care Testing Urine -Bedside: Negative Progress Note : Progress Note NO SYMPTOMS OF ANY KIND DURING ER STAY LENGTHY DISCUSSION WITH PT AND MALE S.O. IN ROOM, ADVISED TO FOLLOW UP WITH [facility] THIS WEEK FOR FURTHER EVALUATION OF ONGOING GI ISSUES, AND WILL GIVE RX'S TO TREAT SYMPTOMS AT THIS TIME, SHE IS NOT HAVING ANY SYMPTOMS TONIGHT, AND DOES NOT SHOW ANY SIGNS OF BEING DEHYDRATED. Departure Impression Impression: Primary Impression: Urinary tract infection Additional Impressions: Nausea and vomiting Intermittent abdominal pain Disposition: HOME, SELF-CARE Condition: Stable Departure-Patient Inst. Referrals: [facility] (PCP/Family) Primary Care Physician Patient Instructions: Acute Abdomen (Belly Pain), Adult (DC), Nausea and Vomiting, Adult (DC), Urinary Tract Infection, Adult (DC) Add. Discharge Instructions: CLEAR LIQUIDS--WATER, BROTH, JELLO, GATORADE BRATS DIET--BANANAS, RICE, APPLESAUCE, TOAST, SALTINES FOLLOW UP WITH YOUR DR THIS WEEK FOR FURTHER CARE All discharge instructions reviewed with patient and/or family. Voiced understanding. Scripts Pantoprazole Sodium (Protonix) 40 Mg Tablet. 40 MG PO DAILY, #15 TAB Prov: GREGORY BETHEA DO 01/24/17 Hyoscyamine Sulfate (Levsin-Sl) 0.125 Mg Tab.subl 1-2 TAB SL Q4H for Abdominal Pain, #10 TAB Prov: GREGORY BETHEA DO 01/24/17 Ondansetron (Zofran Odt) 4 Mg Tab.rapdis 4 MG PO Q4H for Nausea/Vomiting, #10 TAB Prov: GREGORY BETHEA DO 01/24/17 Nitrofurantoin Monohyd/M-Cryst (Macrobid 100 mg Capsule) 100 Mg Capsule 100 MG PO BID, #20 CAP Prov: GREGORY BETHEA DO 01/24/17 GREGORY BETHEA DO Jan 24, 2017 00:55
[2017-01-24] MEDS ORDERED: PANTOPRAZOLE 40 MG (PROTONIX) TAB PO ONE (01:00)
[2017-01-24 01:08] VITALS: BP 121/74
== END 2017-01-24 01:08 | disposition home or self-care (01) ==
LOC: EDUNIT# 23:25 → ER 23:28
DX: N39.0 Urinary tract infection, site not specified (principal); F41.8 Other specified anxiety disorders; Z87.891 Personal history of nicotine dependence; Z32.02 Encounter for pregnancy test, result negative; Z91.5 Personal history of self-harm
CPT/HCPCS: 81000; 84703; 99283

== ENCOUNTER 2017-02-02 05:33 | Outpatient (CLI) | payer MEDICAID ==
[~2017-02-02] VITALS: Ht 170.2 cm; Wt 71.5 kg
[~2017-02-02 05:33] MED LIST changes: +HYOS0.1283 SL; +NITR-65 PO; +ONDA4TAB8 PO; +PANT40TA2 PO
[2017-02-02] MEDS ORDERED: METO-270 PO (11:22)
[2017-02-02] MEDS ORDERED: CLON0.5T PO (11:22)
[2017-02-02] MEDS ORDERED: OMEP40CA36 PO (11:22)
[2017-02-02] MEDS ORDERED: METH36TA4 PO (11:22)
[2017-02-02] MEDS ORDERED: SUCR1TAB PO (11:22)
== END 2017-02-02 11:28 ==
LOC: PREOP 05:33
PROVIDERS: ATTEND Surgery
DX: Z01.818 Encounter for other preprocedural examination (principal); R11.2 Nausea with vomiting, unspecified; R10.12 Left upper quadrant pain

== ENCOUNTER 2017-02-06 10:37 | Day surgery (SDC) | payer MEDICAID ==
[~2017-02-06] VITALS: Ht 170.2 cm; Wt 71.5 kg
[~2017-02-06 10:37] MED LIST changes: +CLON0.5T PO; +METH36TA4 PO; +METO-270 PO; +OMEP40CA36 PO; +SUCR1TAB PO
[2017-02-06] MEDS ORDERED: LACTATED RINGERS 1,000 ML IV ONE (10:57)
[2017-02-06] MEDS ORDERED: LACTATED RINGERS 1,000 ML IV SCH (11:00)
[2017-02-06] MEDS ORDERED: LACTATED RINGERS 1,000 ML IV STA (11:06)
[2017-02-06 11:10] VITALS: BP 102/70
[2017-02-06] MEDS ORDERED: HURRICAINE EXT TUBE (BENZOCAINE) ONE (11:13)
[2017-02-06] MEDS ORDERED: HURRICAINE EXT TUBE (BENZOCAINE) XX PRN ×2 (11:15)
[2017-02-06] MEDS ORDERED: MIDAZOLAM 2 MG/2 ML (VERSED) VIAL ONE (11:35)
[2017-02-06] MEDS ORDERED: proPOfol 200 MG/20 ML (DIPRIVAN) VIAL IV ONE (11:35)
--- NOTE | 2017-02-06 11:45 | Progress Note-Pre Operative ---
Pre-Operative Progress Note H&P Reviewed The H&P was reviewed, patient examined and no changes noted. Date Seen by Provider: Feb 06, 2017 Time Seen by Provider: 11:45 Date H&P Reviewed: Feb 06, 2017 Time H&P Reviewed: 11:45 Pre-Operative Diagnosis: Left upper quadrant abdominal pain, nausea vomiting CHINA ZALDIVAR DO Feb 06, 2017 11:45 am
[2017-02-06] MEDS ORDERED: PANT40TA2 PO (12:54)
--- NOTE | 2017-02-06 12:56 | Discharge Inst-Simple/Standard ---
Discharge Inst-Standard Discharge Medications New, Converted or Re-Newed RX: RX on Chart Patient Instructions/Follow Up Plan of Care/Instructions/FU: Patient will need to follow up with Dr. Blackwood in 3 weeks Take medication as directed. Take protonix twice a day for 2 weeks and then once a day after that Activity as Tolerated: Yes Discharge Diet: No Restrictions GUSTAVO GARCIA APRN Feb 06, 2017 12:56
--- NOTE | 2017-02-06 13:00 | Progress Note-Post Operative ---
Post-Operative Progess Note Surgeon (s)/Cpo (s) Surgeon CHINA ZALDIVAR DO Cpo: na Pre-Operative Diagnosis Left upper quadrant abdominal pain, nausea vomiting Post-Operative Diagnosis gastritis Procedure & Operative Findings Date of Procedure 02/06/17 Procedure Performed/Findings egd c biopsy Anesthesia Type per [facility] Estimated Blood Loss Estimated blood loss (mL): none Specimens/Packing Specimens Removed antrum CHINA ZALDIVAR DO Feb 06, 2017 1:00 pm
[2017-02-06 13:15] VITALS: BP 102/70
[2017-02-06 13:45] VITALS: BP 97/73
[2017-02-06] MEDS ORDERED: SUCR1TAB36 PO (13:49)
[2017-02-06 14:00] VITALS: BP 97/73
--- OUTSIDE RECORDS SUMMARY | 2017-02-06 19:57 | XMS REPORT | Continuity of Care Document ---
Author Author [facility] Organization [facility] Address Unknown Phone Unavailable Care Team Providers Care Coin Collector Name Role Phone KathleenRogersAllison PCP [phone] Source Comments Some departments are not documenting in the electronic medical record. If you do not see the information that you expected, contact Release of Information in the Health Information Management department at [phone] for further assistance in locating additional records.[facility] Active Allergies and Adverse Reactions No Known [...] Interstim placement by Dr. Russo. Enrolled in [employer] trial. Device no longer working. L [...]
--- OUTSIDE RECORDS SUMMARY | 2017-02-06 20:01 | XMS REPORT | Continuity of Care Document ---
Author Author [facility] Address Unknown Phone Unavailable Allergies Active Description Code Type Severity Reaction Onset Reported/Identified Relationship to Patient Clinical Status Yes No Known Drug Allergies [id number] Drug Allergy Mild N/A 02/22/2009 Yes latex [id number] Drug Allergy Moderate N/A 02/02/2017 Medications Problems Date Dx Coded Attending Type [...] L 564.00 CONSTIPATION 03/24/2008 LE GILMORE PSYD L 599.0 URINARY TRACT INFECTION 03/24/2008 LE GILMORE PSYD L 788.1 DYSURIA 03/24/2008 LE GILMORE PSYD L 789.00 ABDOMINAL PAIN UNSPECIFIED SITE 03/24/2008 [...] 789.00 Abdominal Pain Unspecified Site 03/24/2008 MADL BAKERY CLERK, DANE L 564.00 Constipation 03/24/2008 MADL BAKERY CLERK, DANE L 599.0 Urinary Tract Infection 03/24/2008 MADL BAKERY CLERK, DANE L 788.1 Dysuria 03/24/2008 MADL BAKERY CLERK, DANE L 789.00 Abdominal Pain Unspecified Site 03/24/2008 MADL BAKERY CLERK, DANE L 564.00 Constipation 03/24/2008 MADL BAKERY CLERK, DANE L 599.0 Urinary Tract Infection 03/24/2008 MADL BAKERY CLERK, DANE L 788.1 Dysuria 03/24/2008 MADL BAKERY CLERK, DANE L 789.00 Abdominal Pain Unspecified Site 03/24/2008 USHA BAKERY CLERK, MELISSA A 564.00 Constipation 03/24/2008 USHA BAKERY CLERK, MELISSA A 599.0 Urinary Tract Infection 03/24/2008 USHA BAKERY CLERK, MELISSA A 788.1 Dysuria 03/24/2008 USHA BAKERY CLERK, MELISSA A 789.00 Abdominal Pain Unspecified Site 03/24/2008 USHA BAKERY CLERK, MELISSA A 564.00 Constipation 03/24/2008 USHA BAKERY CLERK, MELISSA A 599.0 Urinary Tract Infection 03/24/2008 USHA LANGN, MELISSA A 788.1 Dysuria 03/24/2008 USHA BAKERY CLERK, MELISSA A 789.00 Abdominal Pain Unspecified Site 03/24/2008 SALLY THAKKAR, DANE L 564.00 Constipation 03/24/2008 SALLY THAKKAR, DANE L 599.0 Urinary Tract Infection 03/24/2008 SALLY LANGN, DANE L 788.1 Dysuria 03/24/2008 SALLY THAKKAR, DANE L 789.00 Abdominal Pain Unspecified Site 03/24/2008 SERVIN DO, URSZULA K 564.00 Constipation 03/24/2008 SERVIN DO, URSZULA K 599.0 Urinary Tract Infection 03/24/2008 SERVIN DO, URSZULA K 788.1 Dysuria 03/24/2008 SERVIN DO, URSZULA K 789.00 Abdominal Pain Unspecified Site 03/24/2008 USHACRAIG Acuna APRNIDI A 564.00 Constipation 03/24/2008 USHA BAKERY CLERKCRAIG AcunaIDI A 599.0 Urinary Tract Infection 03/24/2008 USHA LANGKalpana MELISSA A 788.1 Dysuria 03/24/2008 USHACRAIG Acuna APRNIDI A 789.00 Abdominal Pain Unspecified Site 03/24/2008 KISHAN GONZALEZ, ZORAIDA B 564.00 Constipation 03/24/2008 KISHAN GONZALEZ, ZORAIDA B 599.0 Urinary Tract Infection 03/24/2008 KISHAN GONZALEZ, ZORAIDA B 788.1 Dysuria 03/24/2008 KISHAN GONZALEZ, ZORAIDA B 789.00 Abdominal Pain Unspecified Site 03/24/2008 USHA APRN, MELISSA A 564.00 Constipation 03/24/2008 USHAKalpana THAKKAR MELISSA A 599.0 Urinary Tract Infection 03/24/2008 USHAKalpana THAKKAR MELISSA A 788.1 Dysuria 03/24/2008 USHAKalpana THAKKAR MELISSA A 789.00 Abdominal Pain Unspecified Site 03/24/2008 KYLE FERNANDEZ APRN J 564.00 Constipation 03/24/2008 KYLE FERNANDEZ APRN J 599.0 Urinary Tract Infection 03/24/2008 KYLE FERNANDEZ APRN J 788.1 Dysuria 03/24/2008 KYLE FERNANDEZ APRN J 789.00 Abdominal Pain Unspecified Site 03/24/2008 SERVIN DO, URSZULA K 564.00 Constipation 03/24/2008 SERVIN DO, URSZULA K 599.0 Urinary Tract Infection 03/24/2008 SERVIN DO, URSZUAL K 788.1 Dysuria 03/24/2008 SERVIN DO, URSZULA K 789.00 Abdominal Pain Unspecified Site 03/24/2008 [facility], [place] R 564.00 Constipation 03/24/2008 [facility], MAY R 599.0 Urinary Tract Infection 03/24/2008 [facility], MAY R 788.1 Dysuria 03/24/2008 [facility], MAY R 789.00 Abdominal Pain Unspecified Site 03/24/2008 SERVIN DO, URSZULA K 564.00 Constipation 03/24/2008 SERVIN DO, URSZULA K 599.0 Urinary Tract Infection 03/24/2008 SERVIN DO, URSZULA K 788.1 Dysuria 03/24/2008 SERVIN DO, URSZULA K 789.00 Abdominal Pain Unspecified Site 03/24/2008 JAYCEE RAMOS, DOC N 564.00 Constipation 03/24/2008 JAYCEE RAMOS, DOC N 599.0 Urinary Tract Infection 03/24/2008 JAYCEE RAMOS, DOC N 788.1 Dysuria 03/24/2008 JAYCEE RAMOS, DOC N 789.00 Abdominal Pain Unspecified Site 03/24/2008 SERVIN DO, URSZULA K 564.00 Constipation 03/24/2008 SERVIN DO, URSZULA K 599.0 Urinary Tract Infection 03/24/2008 SERVIN DO, URSZULA K 788.1 Dysuria 03/24/2008 SERVIN DO, URSZULA K 789.00 Abdominal Pain Unspecified Site 03/24/2008 USHA BAKERY CLERK, MELISSA A 564.00 Constipation 03/24/2008 USHA BAKERY CLERK, MELISSA A 599.0 Urinary Tract Infection 03/24/2008 USHA BAKERY CLERK, MELISSA A 788.1 Dysuria 03/24/2008 USHA BAKERY CLERK, MELISSA A 789.00 Abdominal Pain Unspecified Site 09/14/2008 V72.31 ROUTINE GYNECOLOGICAL EXAMINATION 09/14/2008 CESILIA CANALES MD V72.31 ROUTINE GYNECOLOGICAL EXAMINATION 09/14/2008 LE GILMORE PSYD V72.31 ROUTINE GYNECOLOGICAL EXAMINATION 09/14/2008 CESILIA CANALES MD V72.31 Routine Gynecological Examination 09/14/2008 V72.31 Routine Gynecological Examination 09/14/2008 V72.31 Routine Gynecological Examination 09/14/2008 V72.31 Routine Gynecological Examination 09/14/2008 SHAUN LANCASTER, CHAN Valencia V72.31 Routine Gynecological Examination 09/14/2008 SERVIN URSZULA WOOTEN K V72.31 Routine Gynecological Examination 09/14/2008 DANE ZAVALA APRN L V72.31 Routine Gynecological Examination 09/14/2008 INLA ZAVALA APRNA L V72.31 Routine Gynecological Examination 09/14/2008 MELISSA KERR APRN A V72.31 Routine Gynecological Examination 09/14/2008 MELISSA KERR APRN A V72.31 Routine Gynecological Examination 09/14/2008 DANE ZAVALA APRN V72.31 Routine Gynecological Examination 09/14/2008 ALEX SERVIN DOA K V72.31 Routine Gynecological Examination 09/14/2008 USHA THAKKAR MELISSA A V72.31 Routine Gynecological Examination 09/14/[address] SQL DEVELOPERZORAIDA BROWN V72.31 Routine Gynecological Examination 09/14/2008 USHA THAKKAR MELISSA A V72.31 Routine Gynecological Examination 09/14/2008 KYLE FERNANDEZ APRN V72.31 Routine Gynecological Examination 09/14/2008 SERVIN ALEX WOOTENA K V72.31 Routine Gynecological Examination 09/14/2008 [facility], [place] Hdez V72.31 Routine Gynecological Examination 09/14/2008 SERVIN DO URSZULA K V72.31 Routine Gynecological Examination 09/14/2008 DOC CHAMPION MD V72.31 Routine Gynecological Examination 09/14/2008 SERVIN DO URSZULA K V72.31 Routine Gynecological Examination 09/14/2008 USHA THAKKAR MELISSA A V72.31 Routine Gynecological Examination 10/26/2008 382.00 OTITIS MEDIA ACUTE SUPPURATIVE 10/26/2008 493.92 ASTHMA WITH ACUTE EXACERBATION 10/26/2008 706.1 ACNE 10/26/2008 CESILIA CANALES MD 382.00 OTITIS MEDIA ACUTE SUPPURATIVE 10/26/2008 CESILIA CANALES MD 493.92 ASTHMA WITH ACUTE EXACERBATION 10/26/2008 CESILIA CANALES MD 706.1 ACNE 10/26/2008 LE GILMORE PSYD ANN L 382.00 OTITIS MEDIA ACUTE SUPPURATIVE 10/26/2008 MANDO MCDANIEL SHERINE L 493.92 ASTHMA WITH ACUTE EXACERBATION 10/26/2008 [...] DO URSZULA K 706.1 Acne 10/26/2008 MADL BAKERY CLERK, DANE L 382.00 Otitis Media Acute Suppurative 10/26/2008 MADL BAKERY CLERK, DANE L 493.92 Asthma With Acute Exacerbation 10/26/2008 MADL BAKERY CLERK, DANE L 706.1 Acne 10/26/2008 MADL BAKERY CLERK, DANE L 382.00 Otitis Media Acute Suppurative 10/26/2008 MADL BAKERY CLERK, DANE L 493.92 Asthma With Acute Exacerbation 10/26/2008 MADL BAKERY CLERK, DANE L 706.1 Acne 10/26/2008 USHA LANGKalpana MELISSA A 382.00 Otitis Media Acute Suppurative 10/26/2008 USHAMELISSA Acuna APRN A 493.92 Asthma With Acute Exacerbation 10/26/2008 USHA BAKERY CLERK, MELISSA A 706.1 Acne 10/26/2008 USHA BAKERY CLERK, MELISSA A 382.00 Otitis Media Acute Suppurative 10/26/2008 USHACRAIG Acuna APRNIDI A 493.92 Asthma With Acute Exacerbation 10/26/2008 USHA LANGKalpana MELISSA A 706.1 Acne 10/26/2008 DEBORAH BAKERY CLERKVAHIDDANE L 382.00 Otitis Media Acute Suppurative 10/26/2008 DEBORAH BAKERY CLERKVAHID AcunaDANE L 493.92 Asthma With Acute Exacerbation 10/26/2008 DEBORAH BAKERY CLERK, DANE L 706.1 Acne 10/26/2008 URSZULA SERVIN DO K 382.00 Otitis Media Acute Suppurative 10/26/2008 URSZULA SERVIN DO K 493.92 Asthma With Acute Exacerbation 10/26/2008 SERVIN ALEX WOOTENA K 706.1 Acne 10/26/2008 USHA BAKERY CLERK, MELISSA A 382.00 Otitis Media Acute Suppurative 10/26/2008 USHAMELISSA Acuna APRN A 493.92 Asthma With Acute Exacerbation 10/26/2008 USHA BAKERY CLERK, MELISSA A 706.1 Acne 10/26/2008 ZORAIDA HOLLEY LCPC B 382.00 Otitis Media Acute Suppurative 10/26/2008 ZORAIDA HOLLEY LCPC B 493.92 Asthma With Acute Exacerbation 10/26/2008 LEENA HOLLEY LCPCLEY B 706.1 Acne 10/26/2008 USHACRAIG Acuna APRNIDI A 382.00 Otitis Media Acute Suppurative 10/26/2008 USHAMELISSA Acuna APRN A 493.92 Asthma With Acute Exacerbation 10/26/2008 USHAKalpana THAKKAR MELISSA A 706.1 Acne 10/26/2008 KYLE FERNANDEZ APRN 382.00 Otitis Media Acute Suppurative 10/26/2008 KYLE FERNANDEZ APRN 493.92 Asthma With Acute Exacerbation 10/26/2008 KYLE FERNANDEZ APRN J 706.1 Acne 10/26/2008 SERVIN DO URSZULA K 382.00 Otitis Media Acute Suppurative 10/26/2008 SERVIN DO URSZULA K 493.92 Asthma With Acute Exacerbation 10/26/2008 SERVIN DO, URSZULA K 706.1 Acne 10/26/2008 [facility], [place] R 382.00 Otitis Media Acute Suppurative 10/26/2008 [facility], MAY R 493.92 Asthma With Acute Exacerbation 10/26/2008 [facility], MAY R 706.1 Acne 10/26/2008 SERVIN DO, URSZULA K 382.00 Otitis Media Acute Suppurative 10/26/2008 SERVIN DO, URSZULA K 493.92 Asthma With Acute Exacerbation 10/26/2008 SERVIN DO URSZULA K 706.1 Acne 10/26/2008 DOC CHAMPION MD N 382.00 Otitis Media Acute Suppurative 10/26/2008 JAYCEE RAMOS, DOC Acuna 493.92 Asthma With Acute Exacerbation 10/26/2008 DOC CHAMPION MD N 706.1 Acne 10/26/2008 SERVIN DO URSZULA K 382.00 Otitis Media Acute Suppurative 10/26/2008 SERVIN DO URSZULA K 493.92 Asthma With Acute Exacerbation 10/26/2008 SERVIN DO, URSZULA K 706.1 Acne 10/26/2008 USHA BAKERY CLERK, MELISSA A 382.00 Otitis Media Acute Suppurative 10/26/2008 USHA BAKERY CLERK, MELISSA A 493.92 Asthma With Acute Exacerbation 10/26/2008 USHA BAKERY CLERK, MELISSA A 706.1 Acne 03/08/2009 V25.49 SURVEILLANCE [...] Surveillance Of Other Contraceptive Method 03/08/2009 SERVIN DO, URSZULA K V25.49 Surveillance Of Other Contraceptive Method 03/08/2009 MADL BAKERY CLERK, DANE L V25.49 Surveillance Of Other Contraceptive Method 03/08/2009 MADL BAKERY CLERK, DANE L V25.49 Surveillance Of Other Contraceptive Method 03/08/2009 USHA BAKERY CLERK, MELISSA A V25.49 Surveillance Of Other Contraceptive Method 03/08/2009 USHA BAKERY CLERK, MELISSA A V25.49 Surveillance Of Other Contraceptive Method 03/08/2009 MADL BAKERY CLERK, DANE L V25.49 Surveillance Of Other Contraceptive Method 03/08/2009 SERVIN DO URSZULA K V25.49 Surveillance Of Other Contraceptive Method 03/08/2009 USHA BAKERY CLERK, MELISSA A V25.49 Surveillance Of Other Contraceptive Method 03/08/[address] SQL DEVELOPERZORAIDA BROWN V25.49 Surveillance Of Other Contraceptive Method 03/08/2009 USHA BAKERY CLERK, MELISSA A V25.49 Surveillance Of Other Contraceptive Method 03/08/2009 KYLE FERNANDEZ APRN V25.49 Surveillance Of Other Contraceptive Method 03/08/2009 SERVIN ALEX WOOTENA K V25.49 Surveillance Of Other Contraceptive Method 03/08/2009 [facility], [place] R V25.49 Surveillance Of Other Contraceptive Method 03/08/2009 SERVIN ALEX WOOTENA K V25.49 Surveillance Of Other Contraceptive Method 03/08/2009 JAYCEE RAMOS, DOC Acuna V25.49 Surveillance Of Other Contraceptive Method 03/08/2009 SERVIN DO URSZULA K V25.49 Surveillance Of Other Contraceptive Method 03/08/2009 USHA BAKERY CLERK, MELISSA A V25.49 Surveillance Of Other Contraceptive [...] Upper Respiratory Infection 03/30/2009 URSZULA SERVIN DO 465.9 Upper Respiratory Infection 03/30/2009 MADL BAKERY CLERK, DANE L 465.9 Upper Respiratory Infection 03/30/2009 MADL BAKERY CLERK, DANE L 465.9 Upper Respiratory Infection 03/30/2009 USHA BAKERY CLERK, MELISSA A 465.9 Upper Respiratory Infection 03/30/2009 USHA BAKERY CLERK, MELISSA A 465.9 Upper Respiratory Infection 03/30/2009 MADL BAKERY CLERK, DANE L 465.9 Upper Respiratory Infection 03/30/2009 SERVIN DO, URSZULA K 465.9 Upper Respiratory Infection 03/30/2009 USHA BAKERY CLERK, MELISSA A 465.9 Upper Respiratory Infection 03/30/[address] SQL DEVELOPER, ZORAIDA B 465.9 Upper Respiratory Infection 03/30/2009 USHA BAKERY CLERK, MELISSA A 465.9 Upper Respiratory Infection 03/30/2009 JIM BAKERY CLERK, KYLE Seay 465.9 Upper Respiratory Infection 03/30/2009 SERVIN DO, URSZULA K 465.9 Upper Respiratory Infection 03/30/2009 [facility], [place] R 465.9 Upper Respiratory Infection 03/30/2009 SERVIN DO, URSZULA K 465.9 Upper Respiratory Infection 03/30/2009 JAYCEE RAMOS, DOC Acuna 465.9 Upper Respiratory Infection 03/30/2009 SERVIN DO, URSZULA K 465.9 Upper Respiratory Infection 03/30/2009 USHA BAKERY CLERK, MELISSA A 465.9 Upper Respiratory Infection 11/18/2009 388.70 OTALGIA, UNSPECIFIED 11/18/2009 477.9 RHINITIS 11/18/2009 CESILIA CANALES MD 388.70 OTALGIA, UNSPECIFIED 11/18/2009 CESILIA CANALES MD 477.9 RHINITIS 11/18/2009 LE GILMORE PSYD 388.70 [...] DO, URSZULA K 477.9 Rhinitis 11/18/2009 MADL BAKERY CLERK, DANE L 388.70 Otalgia, Unspecified 11/18/2009 MADL BAKERY CLERK, DANE L 477.9 Rhinitis 11/18/2009 MADL BAKERY CLERK, DANE L 388.70 Otalgia, Unspecified 11/18/2009 MADL BAKERY CLERK, DANE L 477.9 Rhinitis 11/18/2009 USHA BAKERY CLERK, MELISSA A 388.70 Otalgia, Unspecified 11/18/2009 USHA BAKERY CLERK, MELISSA A 477.9 Rhinitis 11/18/2009 USHA BAKERY CLERK, MELISSA A 388.70 Otalgia, Unspecified 11/18/2009 USHA BAKERY CLERK, MELISSA A 477.9 Rhinitis 11/18/2009 MADL BAKERY CLERK, DANE L 388.70 Otalgia, Unspecified 11/18/2009 MADL BAKERY CLERK, DANE L 477.9 Rhinitis 11/18/2009 SERVIN DO, URSZULA K 388.70 Otalgia, Unspecified 11/18/2009 SERVIN DO, URSZULA K 477.9 Rhinitis 11/18/2009 USHA BAKERY CLERK, MELISSA A 388.70 Otalgia, Unspecified 11/18/2009 USHA BAKERY CLERK, MELISSA A 477.9 Rhinitis 11/18/2009 KISHAN GONZALEZ, ZORAIDA B 388.70 Otalgia, Unspecified 11/18/2009 KISHAN PARKERPC, ZORAIDA B 477.9 Rhinitis 11/18/2009 USHA BAKERY CLERK, MELISSA A 388.70 Otalgia, Unspecified 11/18/2009 USHA BAKERY CLERK, MELISSA A 477.9 Rhinitis 11/18/2009 JIM BAKERY CLERKKYLE 388.70 Otalgia, Unspecified 11/18/2009 JIM BAKERY CLERKKYLE 477.9 Rhinitis 11/18/2009 SERVIN DO, URSZULA K 388.70 Otalgia, Unspecified 11/18/2009 SERVIN DO, URSZULA K 477.9 Rhinitis 11/18/2009 [facility], [place] R 388.70 Otalgia, Unspecified 11/18/2009 [facility], [place] R 477.9 Rhinitis 11/18/2009 SERVIN DO, URSZULA K 388.70 Otalgia, Unspecified 11/18/2009 SERVIN DO, URSZULA K 477.9 Rhinitis 11/18/2009 JAYCEE RAMOS, DOC N 388.70 Otalgia, Unspecified 11/18/2009 JAYCEE RAMOS, DOC Acuna 477.9 Rhinitis 11/18/2009 SERVIN DO, URSZULA K 388.70 Otalgia, Unspecified 11/18/2009 SERVIN DO, URSZULA K 477.9 Rhinitis 11/18/2009 USHA THAKKAR, MELISSA A 388.70 Otalgia, Unspecified 11/18/2009 USHA ARIANE, MELISSA A 477.9 Rhinitis 03/09/2010 729.1 MYALGIA [...] 729.1 Myalgia And Myositis, Unspecified 03/09/2010 SERVIN DO, URSZULA K 729.1 Myalgia And Myositis, Unspecified 03/09/2010 MADL BAKERY CLERKNILA AcunaA L 729.1 Myalgia And Myositis, Unspecified 03/09/2010 MADL BAKERY CLERK, DANE L 729.1 Myalgia And Myositis, Unspecified 03/09/2010 USHACRAIG ESCOBAR APRNIDI A 729.1 Myalgia And Myositis, Unspecified 03/09/2010 CRAIG KERR APRNIDI A 729.1 Myalgia And Myositis, Unspecified 03/09/2010 DANE ZAVALA APRN 729.1 Myalgia And Myositis, Unspecified 03/09/2010 ALEX SERVIN DOA K 729.1 Myalgia And Myositis, Unspecified 03/09/2010 MELISSA KERR APRN A 729.1 Myalgia And Myositis, Unspecified 03/09/2010 KISHAN [facility], ZORAIDA Yadav 729.1 Myalgia And Myositis, Unspecified 03/09/2010 MELISSA KERR APRN A 729.1 Myalgia And Myositis, Unspecified 03/09/2010 KYLE FERNANDEZ APRN 729.1 Myalgia And Myositis, Unspecified 03/09/2010 ALEX SERVIN DOA K 729.1 Myalgia And Myositis, Unspecified 03/09/2010 [facility], [place] R 729.1 Myalgia And Myositis, Unspecified 03/09/2010 SERVIN DO URSZULA K 729.1 Myalgia And Myositis, Unspecified 03/09/2010 JAYCEE ARMOS, DOC Acuna 729.1 Myalgia And Myositis, Unspecified 03/09/2010 ALEX SERVIN DOA K 729.1 Myalgia And Myositis, Unspecified 03/09/2010 MELISSA KERR APRN A 729.1 Myalgia And Myositis, Unspecified 03/28/2010 493.90 ASTHMA, UNSPECIFIED, UNSPECIFIED 03/28/2010 PARKER RAMOS, CESILIA 493.90 ASTHMA 03/28/2010 LE GILMORE PSYD 493.90 ASTHMA 03/28/2010 PARKER RAMOS, CESILIA 493.90 Asthma 03/28/2010 493.90 Asthma 03/28/2010 493.90 Asthma 03/28/2010 493.90 Asthma 03/28/2010 SHUAN LANCASTER, CHAN Valencia 493.90 Asthma 03/28/2010 URSZULA SERVIN DO K 493.90 Asthma 03/28/2010 MADL BAKERY CLERK, DANE L 493.90 Asthma 03/28/2010 MADL BAKERY CLERK, DANE L 493.90 Asthma 03/28/2010 USHA BAKERY CLERK, MELISSA A 493.90 Asthma 03/28/2010 USHA BAKERY CLERK, MELISSA A 493.90 Asthma 03/28/2010 MADL BAKERY CLERK, DANE L 493.90 Asthma 03/28/2010 SERVIN DO, URSZULA K 493.90 Asthma 03/28/2010 USHA BAKERY CLERK, MELISSA A 493.90 Asthma 03/28/2010 KISHAN [facility], ZORAIDA B 493.90 Asthma 03/28/2010 USHA BAKERY CLERK, MELISSA A 493.90 Asthma 03/28/2010 JIM BAKERY CLERK, KYLE Seay 493.90 Asthma 03/28/2010 SERVIN DO, URSZULA K 493.90 Asthma 03/28/2010 [facility], [place] Hdez 493.90 Asthma 03/28/2010 SERVIN DO, URSZULA K 493.90 Asthma 03/28/2010 JAYCEE RAMOS, DOC Acuna 493.90 Asthma 03/28/2010 SERVIN DO, URSZULA K 493.90 Asthma 03/28/2010 USHA BAKERY CLERK, MELISSA A 493.90 Asthma 07/14/2010 729.5 PAIN [...] K 729.5 Pain In Limb 07/14/2010 MADL BAKERY CLERK, DANE L 729.5 Pain In Limb 07/14/2010 MADL BAKERY CLERK, DANE L 729.5 Pain In Limb 07/14/2010 USHA BAKERY CLERK, MELISSA A 729.5 Pain In Limb 07/14/2010 USHA BAKERY CLERK, MELISSA A 729.5 Pain In Limb 07/14/2010 MADL BAKERY CLERK, DANE L 729.5 Pain In Limb 07/14/2010 SERVIN DO, URSZULA K 729.5 Pain In Limb 07/14/2010 USHACRAIG Acuna APRNIDI A 729.5 Pain In Limb 07/14/2010 ZORAIDA HOLLEY LCPC 729.5 Pain In Limb 07/14/2010 USHA THAKKAR, MELISSA A 729.5 Pain In Limb 07/14/2010 KYLE FERNANDEZ APRN 729.5 Pain In Limb 07/14/2010 SERVIN DO, URSZULA K 729.5 Pain In Limb 07/14/2010 [facility], [place] R 729.5 Pain In Limb 07/14/2010 SERVIN DO, URSZULA K 729.5 Pain In Limb 07/14/2010 JAYCEE RAMOS, DOC Acuna 729.5 Pain In Limb 07/14/2010 SERVIN DO, URSZULA K 729.5 Pain In Limb 07/14/2010 USHA THAKKAR, MELISSA A 729.5 Pain In Limb 02/02/2011 474.00 CHRONIC TONSILLITIS 02/02/2011 CESILIA CANALES MD 474.00 CHRONIC TONSILLITIS 02/02/2011 LE GILMORE PSYD 474.00 CHRONIC TONSILLITIS 02/02/2011 CESILIA CANALES MD 474.00 Chronic Tonsillitis 02/02/2011 474.00 Chronic Tonsillitis 02/02/2011 474.00 Chronic Tonsillitis 02/02/2011 474.00 Chronic Tonsillitis 02/02/2011 SHAUN FORMANS, CHAN Valencia 474.00 Chronic Tonsillitis 02/02/2011 URSZULA SERVIN DO K 474.00 Chronic Tonsillitis 02/02/2011 SALLY THAKKAR, DANE L 474.00 Chronic Tonsillitis 02/02/2011 MADL BAKERY CLERK, DANE L 474.00 Chronic Tonsillitis 02/02/2011 CRAIG KERR APRNIDI A 474.00 Chronic Tonsillitis 02/02/2011 CRAIG KERR APRNIDI A 474.00 Chronic Tonsillitis 02/02/2011 MADL ARIANE, DANE L 474.00 Chronic Tonsillitis 02/02/2011 SERVIN ALEX WOOTENA K 474.00 Chronic Tonsillitis 02/02/2011 MELISSA KERR APRN A 474.00 Chronic Tonsillitis 02/02/2011 KISHAN GONZALEZ, ZORAIDA Yadav 474.00 Chronic Tonsillitis 02/02/2011 MELISSA KERR APRN A 474.00 Chronic Tonsillitis 02/02/2011 JIM THAKKAR KYLE J 474.00 Chronic Tonsillitis 02/02/2011 SERVIN DO, URSZULA K 474.00 Chronic Tonsillitis 02/02/2011 [facility] [place] Hdez 474.00 Chronic Tonsillitis 02/02/2011 SERVIN DO, URSZULA K 474.00 Chronic Tonsillitis 02/02/2011 JAYCEE RAMOS, DOC Acuna 474.00 Chronic Tonsillitis 02/02/2011 SERVIN DO, URSZULA K 474.00 Chronic Tonsillitis 02/02/2011 MELISSA EKRR APRN A 474.00 Chronic Tonsillitis 12/20/2011 478.19 RHINORRHEA 12/20/2011 625.0 DYSPAREUNIA 12/20/2011 626.4 IRREGULAR MENSTRUAL CYCLE 12/20/2011 V65.45 STD COUNSELING 12/20/2011 V74.5 STD SCREEN 12/20/2011 CESILIA CANALES MD8.19 RHINORRHEA 12/20/2011 CESILIA CANALES MD 625.0 DYSPAREUNIA 12/20/2011 CESILIA CANALES MD 626.4 IRREGULAR MENSTRUAL CYCLE 12/20/2011 CESILIA CANALES MD V65.45 STD COUNSELING 12/20/2011 CESILIA CANALES MD V74.5 STD SCREEN 12/20/2011 LE GILMORE PSYD 478.19 RHINORRHEA 12/20/2011 LE GILMORE PSYD 625.0 DYSPAREUNIA 12/20/2011 LE GILMORE PSYD 626.4 IRREGULAR MENSTRUAL CYCLE 12/20/2011 LE GILMORE PSYD V65.45 STD COUNSELING 12/20/2011 LE GILMORE PSYD [...] DO URSZULA K 478.19 Rhinorrhea 12/20/2011 SERVIN ALEX WOOTENA K 625.0 Dyspareunia 12/20/2011 SERVIN DO URSZULA K 626.4 Irregular Menstrual Cycle 12/20/2011 SERVIN ALEX WOOTENA K V65.45 Std Counseling 12/20/2011 GARETH WOOTENALEXA K V74.5 Std Screen 12/20/2011 MADL BAKERY CLERK, DANE L 478.19 Rhinorrhea 12/20/2011 MADL BAKERY CLERK, ADNE L 625.0 Dyspareunia 12/20/2011 MADL BAKERY CLERK, DANE L 626.4 Irregular Menstrual Cycle 12/20/2011 MADL BAKERY CLERK, DANE L V65.45 Std Counseling 12/20/2011 MADL BAKERY CLERK, DANE L V74.5 Std Screen 12/20/2011 MADL BAKERY CLERK, DANE L 478.19 Rhinorrhea 12/20/2011 NILA ZAVALA APRNA L 625.0 Dyspareunia 12/20/2011 NILA ZAVALA APRNA L 626.4 Irregular Menstrual Cycle 12/20/2011 VAHID ZAVALA APRNWNYA L V65.45 Std Counseling 12/20/2011 NILA ZAVALA APRNA L V74.5 Std Screen 12/20/2011 CRAIG KERR APRNIDI A 478.19 Rhinorrhea 12/20/2011 USHA THAKKAR, MELISSA A 625.0 Dyspareunia 12/20/2011 CRAIG KERR APRNIDI A 626.4 Irregular Menstrual Cycle 12/20/2011 CRAIG KERR APRNIDI A V65.45 Std Counseling 12/20/2011 CRAIG KERR APRNIDI A V74.5 Std Screen 12/20/2011 CRAIG KERR APRNIDI A 478.19 Rhinorrhea 12/20/2011 USHA THAKKAR MELISSA A 625.0 Dyspareunia 12/20/2011 USHA THAKKAR, MELISSA A 626.4 Irregular Menstrual Cycle 12/20/2011 USHA THAKKAR, MELISSA A V65.45 Std Counseling 12/20/2011 CRAIG KERR APRNIDI A V74.5 Std Screen 12/20/2011 NILA ZAVALA APRNA L 478.19 Rhinorrhea 12/20/2011 NILA ZAVALA APRNA L 625.0 Dyspareunia 12/20/2011 DEBORAH VAHID THAKKARWNYA L 626.4 Irregular Menstrual Cycle 12/20/2011 DEBORAH VAHID THAKKARWNYA L V65.45 Std Counseling 12/20/2011 DEBORAH VAHID THAKKARWNYA L V74.5 Std Screen 12/20/2011 SERVIN DO URSZULA K 478.19 Rhinorrhea 12/20/2011 SERVIN DO URSZULA K 625.0 Dyspareunia 12/20/2011 SERVIN DO URSZULA K 626.4 Irregular Menstrual Cycle 12/20/2011 SERVIN DO, URSZULA K V65.45 Std Counseling 12/20/2011 SERVIN DO URSZULA K V74.5 Std Screen 12/20/2011 CRAIG KERR APRNIDI A 478.19 Rhinorrhea 12/20/2011 CRAIG KERR APRNIDI A 625.0 Dyspareunia 12/20/2011 CRAIG KERR APRNIDI A 626.4 Irregular Menstrual Cycle 12/20/2011 CRAIG KERR APRNIDI A V65.45 Std Counseling 12/20/2011 CRAIG KERR APRNIDI A V74.5 Std Screen 12/20/2011 ZORAIDA HOLLEY LCPC 478.19 Rhinorrhea 12/20/2011 ZORAIDA HOLLEY LCPC B 625.0 Dyspareunia 12/20/2011 ZORAIDA HOLLEY LCPC B 626.4 Irregular Menstrual Cycle 12/20/2011 ZORAIDA HOLLEY LCPC V65.45 Std Counseling 12/20/2011 ZORAIDA HOLLEY LCPC V74.5 Std Screen 12/20/2011 CRAIG KERR APRNIDI A 478.19 Rhinorrhea 12/20/2011 USHA THAKKAR MELISSA A 625.0 Dyspareunia 12/20/2011 USHA THAKKAR MELISSA A 626.4 Irregular Menstrual Cycle 12/20/2011 CRAIG KERR APRNAYSHA Mcneal V65.45 Std Counseling 12/20/2011 CRAIG KERR APRNIDI A V74.5 Std Screen 12/20/2011 KYLE FERNANDEZ APRN 478.19 Rhinorrhea 12/20/2011 JIM BAKERY CLERKKYLE Acuna 625.0 Dyspareunia 12/20/2011 KYLE FERNANDEZ APRN 626.4 Irregular Menstrual Cycle 12/20/2011 KYLE FERNANDEZ APRN V65.45 Std Counseling 12/20/2011 KYLE FERNANDEZ APRN V74.5 Std Screen 12/20/2011 URSZULA SERVIN DO 478.19 Rhinorrhea 12/20/2011 URSZULA SERVIN DO 625.0 Dyspareunia 12/20/2011 URSZULA SERVIN DO K 626.4 Irregular Menstrual Cycle 12/20/2011 ALEX SERVIN DOA K V65.45 Std Counseling 12/20/2011 SERVIN ALEX WOOTENA K V74.5 Std Screen 12/20/2011 [facility] [facility] [place] Hdez 478.19 Rhinorrhea 12/20/2011 [facility], [place] R 625.0 Dyspareunia 12/20/2011 [facility], [place] R 626.4 Irregular Menstrual Cycle 12/20/2011 [facility], [place] R V65.45 Std Counseling 12/20/2011 [facility], [place] R V74.5 Std Screen 12/20/2011 GARETH URSZULA WOOTEN K 478.19 Rhinorrhea 12/20/2011 GARETH ALEX WOOTENA K 625.0 Dyspareunia 12/20/2011 SERVIN ALEX WOOTENA K 626.4 Irregular Menstrual Cycle 12/20/2011 SERVIN ALEX WOOTENA K V65.45 Std Counseling 12/20/2011 SERVIN ALEX WOOTENA K V74.5 Std Screen 12/20/2011 DOC CHAMPION MD 478.19 Rhinorrhea 12/20/2011 JAYCEE RAMOS, DOC Acuna 625.0 Dyspareunia 12/20/2011 JAYCEE RAMOS, DOC Acuna 626.4 Irregular Menstrual Cycle 12/20/2011 DOC CHAMPION MD V65.45 Std Counseling 12/20/2011 DOC CHAMPION MD V74.5 Std Screen 12/20/2011 SERVIN URSZULA WOOTEN K 478.19 Rhinorrhea 12/20/2011 SERVIN ALEX WOOTENA K 625.0 Dyspareunia 12/20/2011 SERVIN URSZULA WOOTEN K 626.4 Irregular Menstrual Cycle 12/20/2011 SERVIN ALEX WOOTENA K V65.45 Std Counseling 12/20/2011 SERVIN URSZULA WOOTEN K V74.5 Std Screen 12/20/2011 MELISSA KERR APRN 478.19 Rhinorrhea 12/20/2011 MELISSA KERR APRN 625.0 Dyspareunia 12/20/2011 MELISSA KERR APRN 626.4 Irregular Menstrual Cycle 12/20/2011 MELISSA KERR APRN V65.45 Std Counseling 12/20/2011 MELISSA KERR APRN V74.5 Std Screen 02/27/2012 079.98 UNSPECIFIED CHLAMYDIAL [...] 02/27/2012 V25.02 Contraception - Any Method 02/27/2012 SHAUN DDS, CHAN Valencia 079.98 Unspecified Chlamydial Infection 02/27/2012 WHITE DDS, CHAN Valencia 614.3 Acute Parametritis And Pelvic Cellulitis 02/27/2012 SHAUN DDS, CHAN Valencia V25.02 Contraceptives 02/27/2012 ALEX SERVIN DOA K 079.98 Unspecified Chlamydial Infection 02/27/2012 SERVIN DO URSZUAL K 614.3 Acute Parametritis And Pelvic Cellulitis 02/27/2012 ALEX SERVIN DOA K V25.02 Contraceptives 02/27/2012 MADL BAKERY CLERKNILAA L 079.98 Unspecified Chlamydial Infection 02/27/2012 MADL BAKERY CLERK, DANE L 614.3 Acute Parametritis And Pelvic Cellulitis 02/27/2012 MADL BAKERY CLERK, DANE L V25.02 Contraceptives 02/27/2012 MADL BAKERY CLERK, DANE L 079.98 Unspecified Chlamydial Infection 02/27/2012 DEBORAHL BAKERY CLERKVAHID AcunaDANE L 614.3 Acute Parametritis And Pelvic Cellulitis 02/27/2012 DEBORAHL BAKERY CLERKVAHIDDANE L V25.02 Contraceptives 02/27/2012 USHA CRAIG THAKKARIDI A 079.98 Unspecified Chlamydial Infection 02/27/2012 USHA BAKERY CLERKCRAIG AcunaIDI A 614.3 Acute Parametritis And Pelvic Cellulitis 02/27/2012 USHA BAKERY CLERK MELISSA A V25.02 Contraceptives 02/27/2012 USHA BAKERY CLERKCRAIGMELISSA A 079.98 Unspecified Chlamydial Infection 02/27/2012 USHA CRAIG THAKKARIDI A 614.3 Acute Parametritis And Pelvic Cellulitis 02/27/2012 USHACRAIG Acuna APRNIDI A V25.02 Contraceptives 02/27/2012 DEBORAH BAKERY CLERK, DANE L 079.98 Unspecified Chlamydial Infection 02/27/2012 DEBORAH BAKERY CLERK, DANE L 614.3 Acute Parametritis And Pelvic Cellulitis 02/27/2012 DEBORAH BAKERY CLERK DANE L V25.02 Contraceptives 02/27/2012 SERVIN DO URSZULA K 079.98 Unspecified Chlamydial Infection 02/27/2012 SERVIN DO URSZULA K 614.3 Acute Parametritis And Pelvic Cellulitis 02/27/2012 SERVIN DO URSZULA K V25.02 Contraceptives 02/27/2012 USHAMELISSA Acuna APRN A 079.98 Unspecified Chlamydial Infection 02/27/2012 USHA MELISSA THAKKAR A 614.3 Acute Parametritis And Pelvic Cellulitis 02/27/2012 USHA BAKERY CLERK, MELISSA A V25.02 Contraceptives 02/27/2012 ZORAIDA HOLLEY LCPC 079.98 Unspecified Chlamydial Infection 02/27/2012 ZORAIDA HOLLEY LCPC 614.3 Acute Parametritis And Pelvic Cellulitis 02/27/2012 ZORAIDA HOLLEY LCPC B V25.02 Contraceptives 02/27/2012 USHAMELISSA Acuna APRN A 079.98 Unspecified Chlamydial Infection 02/27/2012 USHAMELISSA ESCOBAR APRN 614.3 Acute Parametritis And Pelvic Cellulitis 02/27/2012 MELISSA KERR APRN V25.02 Contraceptives 02/27/2012 KYLE FERNANDEZ APRN 079.98 Unspecified Chlamydial Infection 02/27/2012 KYLE FERNANDEZ APRN 614.3 Acute Parametritis And Pelvic Cellulitis 02/27/2012 KYLE FERNANDEZ APRN V25.02 Contraceptives 02/27/2012 URSZULA SERVIN DO 079.98 Unspecified Chlamydial Infection 02/27/2012 URSZULA SERVIN DO 614.3 Acute Parametritis And Pelvic Cellulitis 02/27/2012 URSZULA SERVIN DO V25.02 CONTRACEPTIVES 02/27/2012 [facility] [place] R 079.98 Unspecified Chlamydial Infection 02/27/2012 [facility], [place] R 614.3 Acute Parametritis And Pelvic Cellulitis 02/27/2012 [facility], [place] R V25.02 CONTRACEPTIVES 02/27/2012 URSZULA SERVIN [...] AN GEN ANXIETY 08/07/2012 LE [facility]ILMORE PSYD 300.21 AN PANIC DIS W AGORA 08/07/2012 [...] An Panic Dis W [place] 08/07/2012 MADL BAKERY CLERK, DANE L 300.02 An Gen Anxiety 08/07/2012 MADL BAKERY CLERK, DANE L 300.21 An Panic Dis W [place] 08/07/2012 MADL BAKERY CLERK, DANE L 300.02 An Gen Anxiety 08/07/2012 MADL BAKERY CLERK, DANE L 300.21 An Panic Dis W [place] 08/07/2012 USHA BAKERY CLERK, MELISSA A 300.02 An Gen Anxiety 08/07/2012 USHA BAKERY CLERK, MELISSA A 300.21 An Panic Dis [place] 08/07/2012 USHA BAKERY CLERK, MELISSA A 300.02 An Gen Anxiety 08/07/2012 USHA BAKERY CLERK, MELISSA A 300.21 An Panic Dis W [place] 08/07/2012 MADL BAKERY CLERK, DANE L 300.02 An Gen Anxiety 08/07/2012 MADL BAKERY CLERK, DANE L 300.21 An Panic Dis W [place] 08/07/2012 SERVIN DO, URSZULA K 300.02 An Gen Anxiety 08/07/2012 SERVIN DO, URSZULA K 300.21 An Panic Dis [place] 08/07/2012 USHA BAKERY CLERK, MELISSA A 300.02 An Gen Anxiety 08/07/2012 USHA BAKERY CLERK, MELISSA A 300.21 An Panic Dis W [place] 08/07/[address] SQL DEVELOPER, ZORAIDA B 300.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 Anxiety 08/07/[address] SQL DEVELOPER, ZORAIDA B 300.21 An Panic Dis W [place] 08/07/2012 USHA BAKERY CLERK, MELISSA A 300.02 An Gen Anxiety 08/07/2012 USHA BAKERY CLERK, MELISSA A 300.21 An Panic Dis W [place] 08/07/2012 JIM BAKERY CLERK, KYLE J 300.02 An Gen Anxiety 08/07/2012 JIM BAKERY CLERK, KYLE J 300.21 An Panic Dis [place] 08/07/2012 SERVIN DO, URSZULA K 300.02 An Gen Anxiety 08/07/2012 SERVIN DO, URSZULA K 300.21 An Panic Dis [place] 08/07/2012 [facility] [place] R 300.02 An Gen Anxiety 08/07/2012 [facility] [place] R 300.21 An Panic Dis W [...] An Panic Dis W [place] 08/07/2012 USHA BAKERY CLERK, MELISSA A 300.02 An Gen Anxiety 08/07/2012 USHA BAKERY CLERK, MELISSA A 300.21 An Panic Dis [place] 08/21/2012 CESILIA CANALES MD 300.00 ANXIETY UNSPEC 08/21/2012 CESILIA CANALES MD 780.52 insomnia 08/21/2012 [facility] PSYD 300.00 ANXIETY UNSPEC 08/21/2012 [facility] PSYD L 780.52 insomnia 08/21/2012 CESILIA CANALES MD 300.00 ANXIETY UNSPEC 08/21/2012 CESILIA CANALES MD 780.52 insomnia 08/21/2012 300.00 anxiety 08/21/2012 780.52 insomnia 08/21/2012 300.00 anxiety 08/21/2012 780.52 insomnia 08/21/2012 300.00 anxiety 08/21/2012 780.52 insomnia 08/21/2012 WHITE DDS, CHAN D 300.00 anxiety 08/21/2012 WHITE DDS, CHAN D 780.52 insomnia 08/21/2012 SERVIN DO, URSZULA K 300.00 anxiety 08/21/2012 SERVIN DO, URSZULA K 780.52 insomnia 08/21/2012 MADL BAKERY CLERK, DANE L 300.00 anxiety 08/21/2012 MADL BAKERY CLERK, DANE L 780.52 insomnia 08/21/2012 MADL BAKERY CLERK, DANE L 300.00 anxiety 08/21/2012 MADL BAKERY CLERK, DANE L 780.52 insomnia 08/21/2012 USHA BAKERY CLERK, MELISSA A 300.00 anxiety 08/21/2012 USHA BAKERY CLERK, MELISSA A 780.52 insomnia 08/21/2012 USHA BAKERY CLERK, MELISSA A 300.00 anxiety 08/21/2012 USHA BAKERY CLERK, MELISSA A 780.52 insomnia 08/21/2012 MADL BAKERY CLERK, DANE L 300.00 anxiety 08/21/2012 MADL BAKERY CLERK, DANE L 780.52 insomnia 08/21/2012 SERVIN DO, URSZULA K 300.00 anxiety 08/21/2012 SERVIN DO, URSZULA K 780.52 insomnia 08/21/2012 USHA BAKERY CLERK, MELISSA A 300.00 anxiety 08/21/2012 USHA BAKERY CLERK, MELISSA A 780.52 insomnia 08/21/2012 ZORAIDA HOLLEY LCPC 300.00 anxiety 08/21/2012 ZORAIDA HOLLEY LCPC 780.52 insomnia 08/21/2012 USHA THAKKAR, MELISSA A 300.00 anxiety 08/21/2012 USHA APRN, MELISSA A 780.52 insomnia 08/21/2012 KYLE FERNANDEZ APRN 300.00 anxiety 08/21/2012 JIM BAKERY CLERK, KYLE J 780.52 insomnia 08/21/2012 SERVIN DO, URSZULA K 300.00 anxiety 08/21/2012 SERVIN DO, URSZULA K 780.52 insomnia 08/21/2012 [facility] [place] R 300.00 anxiety 08/21/2012 [facility], [place] R 780.52 insomnia 08/21/2012 SERVIN DO, URSZULA K 300.00 anxiety 08/21/2012 SERVIN DO, URSZULA K 780.52 insomnia 08/21/2012 DOC CHAMPION MD 300.00 anxiety 08/21/2012 DOC CHAMPION MD 780.52 insomnia 08/21/2012 SERVIN DO, URSZULA K 300.00 anxiety 08/21/2012 SERVIN DO, URSZULA K 780.52 insomnia 08/21/2012 USHA THAKKAR, MELISSA A 300.00 anxiety 08/21/2012 USHA THAKKAR, MELISSA A 780.52 insomnia 10/26/2012 Ot 784.0 10/28/2012 [...] MIGRAINE WITHOUT MENTION OF STATUS MIGRAINOSUS 10/28/2012 USHA BAKERY CLERK, MELISSA A 346.90 MIGRAINE UNSPECIFIED WITHOUT MENTION OF [...] WITHOUT MENTION OF STATUS MIGRAINOSUS 10/28/2012 [facility] [place] R 346.90 MIGRAINE UNSPECIFIED WITHOUT MENTION OF INTRACTABLE MIGRAINE WITHOUT MENTION OF STATUS MIGRAINOSUS 10/28/2012 URSZULA SERVIN DO 346.90 MIGRAINE UNSPECIFIED WITHOUT MENTION OF INTRACTABLE MIGRAINE WITHOUT MENTION OF STATUS MIGRAINOSUS 10/28/2012 DOC CHAMPION MD 346.90 MIGRAINE UNSPECIFIED WITHOUT MENTION OF [...] URSZULA SERVIN DO V25.9 CONTRACEPTION MANAGEMENT 12/26/2012 DANE ZAVALA APRN V25.9 CONTRACEPTION MANAGEMENT 12/26/2012 MADL BAKERY CLERK, DANE L V25.9 CONTRACEPTION MANAGEMENT 12/26/2012 USHA BAKERY CLERK, MELISSA A V25.9 CONTRACEPTION MANAGEMENT 12/26/2012 USHA BAKERY CLERK, MELISSA A V25.9 CONTRACEPTION MANAGEMENT 12/26/2012 MADL BAKERY CLERK, DANE L V25.9 CONTRACEPTION MANAGEMENT 12/26/2012 SERVIN DO, URSZULA K V25.9 CONTRACEPTION MANAGEMENT 12/26/2012 USHA BAKERY CLERK, MELISSA A V25.9 CONTRACEPTION MANAGEMENT 12/26/2012 KISHAN GONZALEZ, ZORAIDA Yadav V25.9 CONTRACEPTION MANAGEMENT 12/26/2012 USHA BAKERY CLERK, MELISSA A V25.9 CONTRACEPTION MANAGEMENT 12/26/2012 KYLE FERNANDEZ APRN V25.9 CONTRACEPTION MANAGEMENT 12/26/2012 SERVIN DO, URSZULA K V25.9 CONTRACEPTION MANAGEMENT 12/26/2012 [facility] [place] Hdez V25.9 CONTRACEPTION MANAGEMENT 12/26/2012 SERVIN DO, URSZULA K V25.9 CONTRACEPTION MANAGEMENT 12/26/2012 JAYCEE RAMOS, DOC Acuna V25.9 CONTRACEPTION MANAGEMENT 12/26/2012 SERVIN DO, URSZULA K V25.9 CONTRACEPTION MANAGEMENT 12/26/2012 USHA BAKERY CLERK, MELISSA A V25.9 CONTRACEPTION MANAGEMENT 05/07/2013 WHITE DDS, CHAN D 078.19 OTHER SPECIFIED VIRAL WARTS 05/07/2013 WHITE DDS, CHAN D 799.2 anxiety 05/07/2013 SERVIN DO, URSZULA K 078.19 OTHER SPECIFIED VIRAL WARTS 05/07/2013 SERVIN DO, URSZULA K 799.2 anxiety 05/07/2013 MADL BAKERY CLERK, DANE L 078.19 OTHER SPECIFIED VIRAL WARTS 05/07/2013 MADL BAKERY CLERK, DANE L 799.2 ANXIETY 05/07/2013 MADL BAKERY CLERK, DANE L 078.19 OTHER SPECIFIED VIRAL WARTS 05/07/2013 MADL BAKERY CLERK, DANE L 799.2 ANXIETY 05/07/2013 USHA BAKERY CLERK, MELISSA A 078.19 OTHER SPECIFIED VIRAL WARTS 05/07/2013 USHA BAKERY CLERK, MELISSA A 799.2 ANXIETY 05/07/2013 USHA BAKERY CLERK, MELISSA A 078.19 OTHER SPECIFIED VIRAL WARTS 05/07/2013 USHA BAKERY CLERK, MELISSA A 799.2 ANXIETY 05/07/2013 MADL BAKERY CLERK, DANE L 078.19 OTHER SPECIFIED VIRAL WARTS 05/07/2013 MADL BAKERY CLERK, DANE L 799.2 ANXIETY 05/07/2013 SERVIN DO, URSZULA K 078.19 OTHER SPECIFIED VIRAL WARTS 05/07/2013 SERVIN DO, URSZULA K 799.2 ANXIETY 05/07/2013 USHA BAKERY CLERK, MELISSA A 078.19 OTHER SPECIFIED VIRAL WARTS 05/07/2013 USHA BAKERY CLERK, MELISSA A 799.2 ANXIETY 05/07/[address] SQL DEVELOPER, ZORAIDA B 078.19 OTHER SPECIFIED VIRAL WARTS 05/07/[address] SQL DEVELOPER, ZORAIDA B 799.2 ANXIETY 05/07/2013 USHA BAKERY CLERK, MELISSA A 078.19 OTHER SPECIFIED VIRAL WARTS 05/07/2013 USHA BAKERY CLERK, MELISSA A 799.2 ANXIETY 05/07/2013 JIM BAKERY CLERK, KYLE J 078.19 OTHER SPECIFIED VIRAL WARTS 05/07/2013 JIM BAKERY CLERK, KYLE J 799.2 ANXIETY 05/07/2013 SERVIN DO, URSZULA K 078.19 OTHER SPECIFIED VIRAL WARTS 05/07/2013 SERVIN DO, URSZULA K 799.2 ANXIETY 05/07/2013 [facility] [place] R 078.19 OTHER SPECIFIED VIRAL WARTS 05/07/2013 [facility] [place] R 799.2 ANXIETY 05/07/2013 SERVIN DO, URSZULA K 078.19 OTHER SPECIFIED VIRAL WARTS 05/07/2013 SERVIN DO, URSZULA K 799.2 ANXIETY 05/07/2013 DOC CHAMPION MD 078.19 OTHER SPECIFIED VIRAL WARTS 05/07/2013 DOC CHAMPION MD 799.2 ANXIETY 05/07/2013 SERVIN DO, URSZULA K 078.19 OTHER SPECIFIED VIRAL WARTS 05/07/2013 SERVIN DO, URSZULA K 799.2 ANXIETY 05/07/2013 USHA BAKERY CLERK, MELISSA A 078.19 OTHER SPECIFIED VIRAL WARTS 05/07/2013 USHA BAKERY CLERK, MELISSA A 799.2 ANXIETY 03/04/2014 ANG CRABTREE MD Ot 599.0 03/04/2014 ANG CRABTREE MD Ot 789.09 03/09/2014 SALLY BAKERY CLERKDANE L 599.0 URINARY TRACT INFECTION 03/09/2014 MADL BAKERY CLERKVAHIDDANE L 625.9 UNSPECIFIED SYMPTOM ASSOCIATED WITH FEMALE GENITAL ORGANS 03/09/2014 USHA BAKERY CLERK, MELISSA A 599.0 URINARY TRACT INFECTION 03/09/2014 USHA BAKERY CLERK, MELISSA A 625.9 UNSPECIFIED SYMPTOM ASSOCIATED WITH FEMALE GENITAL ORGANS 03/09/2014 USHA BAKERY CLERK, MELISSA A 599.0 URINARY TRACT INFECTION 03/09/2014 USHA BAKERY CLERK, MELISSA A 625.9 UNSPECIFIED SYMPTOM ASSOCIATED WITH FEMALE GENITAL ORGANS 03/09/2014 SALLY DANE THAKKAR L 599.0 URINARY TRACT INFECTION 03/09/2014 DEBORAHL NILA THAKKARA L 625.9 UNSPECIFIED SYMPTOM ASSOCIATED WITH FEMALE GENITAL ORGANS 03/09/2014 SERVIN DOALEXA K 599.0 URINARY TRACT INFECTION 03/09/2014 SERVIN DOALEXA K 625.9 UNSPECIFIED SYMPTOM ASSOCIATED WITH FEMALE GENITAL ORGANS 03/09/2014 USHA BAKERY CLERK, MELISSA A 599.0 URINARY TRACT INFECTION 03/09/2014 USHA BAKERY CLERK, MELISSA A 625.9 UNSPECIFIED SYMPTOM ASSOCIATED WITH FEMALE GENITAL ORGANS 03/09/2014 ZORAIDA HOLLEY LCPC 599.0 URINARY TRACT INFECTION 03/09/2014 ZORAIDA HOLLEY LCPC 625.9 UNSPECIFIED SYMPTOM ASSOCIATED WITH FEMALE GENITAL ORGANS 03/09/2014 USHA BAKERY CLERK, MELISSA A 599.0 URINARY TRACT INFECTION 03/09/2014 USHA BAKERY CLERK, MELISSA A 625.9 UNSPECIFIED SYMPTOM ASSOCIATED WITH FEMALE GENITAL ORGANS 03/09/2014 KYLE FERNANDEZ APRN 599.0 URINARY TRACT INFECTION 03/09/2014 KYLE FERNANDEZ APRN J 625.9 UNSPECIFIED SYMPTOM ASSOCIATED WITH FEMALE GENITAL ORGANS 03/09/2014 SERVIN DOALEXA K 599.0 URINARY TRACT INFECTION 03/09/2014 SERVIN ALEX WOOTENA K 625.9 UNSPECIFIED SYMPTOM ASSOCIATED WITH FEMALE GENITAL ORGANS 03/09/2014 [facility] [place] Hdez 599.0 URINARY TRACT INFECTION 03/09/2014 [facility] [place] R 625.9 UNSPECIFIED SYMPTOM ASSOCIATED WITH FEMALE GENITAL ORGANS 03/09/2014 SERVIN DO, URSZULA K 599.0 URINARY TRACT INFECTION 03/09/2014 SERVIN DO, URSZULA K 625.9 UNSPECIFIED SYMPTOM ASSOCIATED WITH FEMALE GENITAL ORGANS 03/09/2014 DOC CHAMPION MD 599.0 URINARY TRACT INFECTION 03/09/2014 DOC CHAMPION MD 625.9 UNSPECIFIED SYMPTOM ASSOCIATED WITH FEMALE GENITAL ORGANS 03/09/2014 SERVIN DO, URSZULA K 599.0 URINARY TRACT INFECTION 03/09/2014 SERVIN DO, URSZULA K 625.9 UNSPECIFIED SYMPTOM ASSOCIATED WITH FEMALE GENITAL ORGANS 03/09/2014 USHA APRN, MELISSA A 599.0 URINARY TRACT INFECTION 03/09/2014 USHA BAKERY CLERK, MELISSA A 625.9 UNSPECIFIED SYMPTOM ASSOCIATED WITH FEMALE GENITAL ORGANS 03/12/2014 USHA THAKKAR MELISSA A V72.42 TEST POSITIVE RESULT 03/12/2014 USHA THAKKAR MELISSA A V72.42 TEST POSITIVE RESULT 03/12/2014 DANE ZAVALA APRN V72.42 TEST POSITIVE RESULT 03/12/2014 SERVIN DO, URSZULA K V72.42 TEST POSITIVE RESULT 03/12/2014 USHA THAKKAR MELISSA A V72.42 TEST POSITIVE RESULT 03/12/2014 ZORAIDA HOLLEY LCPC V72.42 TEST POSITIVE RESULT 03/12/2014 USHA THAKKAR MELISSA A V72.42 TEST POSITIVE RESULT 03/12/2014 KYLE FERNANDEZ APRN V72.42 TEST POSITIVE RESULT 03/12/2014 SERVIN DO, URSZULA K V72.42 TEST POSITIVE RESULT 03/12/2014 [facility] [place] R V72.42 TEST POSITIVE RESULT 03/12/2014 SERVIN DO, URSZULA K V72.42 TEST POSITIVE RESULT 03/12/2014 DOC CHAMPION MD V72.42 TEST POSITIVE RESULT 03/12/2014 SERVIN DO, URSZULA K V72.42 TEST POSITIVE RESULT 03/12/2014 USHA THAKKAR MELISSA A V72.42 TEST POSITIVE RESULT 03/30/2014 BRO RAMOS, ANG Valencia Ot 640.03 03/30/2014 BRO RAMOS, ANG Valencia Ot 648.93 03/30/2014 BRO RAMOS, ANG Valencia Ot 789.09 04/27/2014 MELISSA KERR APRN A 625.8 OTHER SPECIFIED SYMPTOMS ASSOCIATED WITH FEMALE GENITAL ORGANS 04/27/2014 USHACRAIG ESCOBAR APRNIDI A V22.1 , NORMAL OTHER 04/27/2014 ZORAIDA HOLLEY LCPC 625.8 OTHER SPECIFIED SYMPTOMS ASSOCIATED WITH FEMALE GENITAL ORGANS 04/27/2014 ZORAIDA HOLLEY LCPC V22.1 , NORMAL OTHER 04/27/2014 CRAIG KERR APRNIDI A 625.8 OTHER SPECIFIED SYMPTOMS ASSOCIATED WITH FEMALE GENITAL ORGANS 04/27/2014 MELISSA KERR APRN A V22.1 , NORMAL OTHER 04/27/2014 KYLE FERNANDEZ APRN J 625.8 OTHER SPECIFIED SYMPTOMS ASSOCIATED WITH FEMALE GENITAL ORGANS 04/27/2014 VINAY FERNANDEZ APRNA J V22.1 , NORMAL OTHER 04/27/2014 GARETH WOOTEN URSZULA K 625.8 OTHER SPECIFIED SYMPTOMS ASSOCIATED WITH FEMALE GENITAL ORGANS 04/27/2014 SERVIN DO URSZULA K V22.1 , NORMAL OTHER 04/27/2014 [facility], [place] R 625.8 OTHER SPECIFIED SYMPTOMS ASSOCIATED WITH FEMALE GENITAL ORGANS 04/27/2014 [facility], [place] R V22.1 , NORMAL OTHER 04/27/2014 [...] LCPC 311 DEPRESSIVE DISORDER NOS 05/06/2014 USHA THAKKAR, MELISSA A 311 DEPRESSIVE DISORDER NOS 05/06/2014 KYLE FERNANDEZ APRN 311 DEPRESSIVE DISORDER NOS 05/06/2014 URSZULA SERVIN DO K 311 DEPRESSIVE DISORDER NOS 05/06/2014 [facility] [place] R 311 DEPRESSIVE DISORDER NOS 05/06/2014 ALEX SERVIN DOA K 311 DEPRESSIVE DISORDER NOS 05/06/2014 DOC CHAMPION MD 311 DEPRESSIVE DISORDER NOS 05/06/2014 URSZULA SERVIN DO K 311 DEPRESSIVE DISORDER NOS 05/06/2014 USHA LANGN, MELISSA A 311 DEPRESSIVE DISORDER NOS 05/25/2014 USHA LANGN, MELISSA A 131.01 TRICHOMONAL VULVOVAGINITIS 05/25/2014 USHA BAKERY CLERK, MELISSA A V74.5 STD SCREEN 05/25/2014 USHA LANGMELISSA Acuna A V76.2 CERVICAL CANCER SCREENING (PAP SMEAR) 05/25/2014 KYLE FERNANDEZ APRN J 131.01 TRICHOMONAL VULVOVAGINITIS 05/25/2014 KYLE FERNANDEZ APRN V74.5 STD SCREEN 05/25/2014 KYLE FERNANDEZ APRN V76.2 CERVICAL CANCER SCREENING (PAP SMEAR) 05/25/2014 URSZULA SERVIN DO K 131.01 TRICHOMONAL VULVOVAGINITIS 05/25/2014 URSZULA SERVIN DO K V74.5 STD SCREEN 05/25/2014 URSZULA SERVIN DO K V76.2 CERVICAL CANCER SCREENING (PAP SMEAR) 05/25/2014 [facility] [place] R 131.01 TRICHOMONAL VULVOVAGINITIS 05/25/2014 [facility] [place] R V74.5 STD SCREEN 05/25/2014 [facility] [place] R V76.2 CERVICAL CANCER SCREENING (PAP [...] URSZULA SERVIN DO V74.5 STD SCREEN 05/25/2014 URSZULA SERVIN DO V76.2 CERVICAL CANCER SCREENING (PAP SMEAR) 05/25/2014 USHAMELISSA ESCOBAR APRN A 131.01 TRICHOMONAL VULVOVAGINITIS 05/25/2014 USHAMELISSA ESCOBAR APRN A V74.5 STD SCREEN 05/25/2014 USHAMELISSA ESCOBAR APRN A V76.2 CERVICAL CANCER SCREENING (PAP SMEAR) 06/29/2014 URSZULA SERVIN DO 493.90 ASTHMA UNSPECIFIED 06/29/2014 URSZULA SERVIN DO V04.81 FLU SHOT 06/29/2014 [facility] [place] R 493.90 ASTHMA UNSPECIFIED 06/29/2014 [facility] [place] R V04.81 FLU SHOT 06/29/2014 URSZULA SERVIN DO 493.90 ASTHMA UNSPECIFIED 06/29/2014 URSZULA SERVIN DO V04.81 FLU SHOT 06/29/2014 DOC CHAMPION MD 493.90 ASTHMA UNSPECIFIED 06/29/2014 DOC CHAMPION MD V04.81 FLU SHOT 06/29/2014 URSZULA SERVIN DO 493.90 ASTHMA UNSPECIFIED 06/29/2014 URSZULA SERVIN DO V04.81 FLU SHOT 06/29/2014 USHA APRN, MELISSA A 493.90 ASTHMA UNSPECIFIED 06/29/2014 USHA APRN, MELISSA A V04.81 FLU SHOT 07/02/2014 MADLDANE L GLUING MACHINE OPERATOR AUTOMATIC Ot 620.2 07/02/2014 Ot V28.89 07/13/2014 MADL, DANE L GLUING MACHINE OPERATOR AUTOMATIC Ot 620.2 07/13/2014 Ot V28.89 08/03/2014 URSZULA SERVIN DO 465.9 UPPER RESPIRATORY INFECTION 08/03/2014 [facility] [place] R 465.9 UPPER RESPIRATORY INFECTION 08/03/2014 URZSULA SERVIN DO 465.9 UPPER RESPIRATORY INFECTION 08/03/2014 DOC CHAMPION MD 465.9 UPPER RESPIRATORY INFECTION 08/03/2014 ALEX SERVIN DOA K 465.9 UPPER RESPIRATORY INFECTION 08/03/2014 MELISSA KERR APRN 465.9 UPPER RESPIRATORY INFECTION 08/04/2014 URSZULA SERVIN DO K Ot V28.81 09/09/2014 DANE ZAVALA Ot 620.2 09/09/2014 Ot V28.89 09/09/2014 ALEX SERVIN DOA K Ot V28.81 09/21/2014 GARETH WOOTEN URSZULA K V06.1 TDAP DX 09/21/2014 GARETH WOOTEN URSZULA K V77.1 DIABETES SCREENING 09/21/2014 GARETH WOOTEN URSZULA K V78.0 ANEMIA SCREENING 09/21/2014 DOC CHAMPION MD V06.1 TDAP DX 09/21/2014 DOC CHAMPION MD V77.1 DIABETES SCREENING 09/21/2014 DOC CHAMPION MD V78.0 ANEMIA SCREENING 09/21/2014 URSZULA SERVIN DO K V06.1 TDAP DX 09/21/2014 URSZULA SERVIN DO K V77.1 DIABETES SCREENING 09/21/2014 GARETH WOOTEN URSZULA K V78.0 ANEMIA SCREENING 09/21/2014 MELISSA KERR APRN V06.1 TDAP DX 09/21/2014 MELISSA KERR APRN V77.1 DIABETES SCREENING 09/21/2014 MELISSA KERR APRN V78.0 ANEMIA SCREENING 10/05/2014 URSZULA SERVIN DO K 682.9 CELLULITIS AND ABSCESS OF UNSPECIFIED SITES 10/05/2014 DOC CHAMPION MD 682.9 CELLULITIS AND ABSCESS OF UNSPECIFIED SITES 10/05/2014 URSZULA SERVIN DO K 682.9 CELLULITIS AND ABSCESS OF UNSPECIFIED SITES 10/05/2014 MELISSA KERR APRN 682.9 CELLULITIS AND ABSCESS OF UNSPECIFIED SITES 10/11/2014 JOURDAN HALE MD Ot V22.1 10/19/2014 URSZULA SERVIN DO V28.6 GBS SCREENING 10/19/2014 DOC CHAMPION MD V28.6 GBS SCREENING 10/19/2014 URSZULA SERVIN DO V28.6 GBS SCREENING 10/19/2014 USHA BAKERY CLERK, MELISSA A V28.6 GBS SCREENING 10/21/2014 URSZULA SERVIN DO Ot 659.73 11/11/2014 JAYCEE RAMOS, DOC Acuna Ot 648.93 OTH CURR COND-ANTEPARTUM 11/11/2014 JAYCEE RAMOS, DOC [place] Ot 796.2 ELEV BL PRES W/O HYPERTN 11/23/2014 URSZULA SERVIN DO Ot 644.03 THRT NELSON LABOR-ANTEPART 11/28/2014 URSZULA SERVIN DO Ot 645.11 POST TERM PREG, DELIV W/WO MENTION OF AN 11/28/2014 URSZULA SERVIN DO Ot 653.41 FETOPELV DISPROPOR-DELIV 11/28/2014 URSZULA SERVIN DO Ot 660.11 BONY PELV OBSTRUCT-DELIV 11/28/2014 URSZULA SERVIN DO Ot 661.21 UTERINE INERT NEC-DELIV 11/28/2014 URSZULA SERVIN DO Ot V27.0 DELIVER-SINGLE LIVEBORN 04/30/2015 EDITA BAXTER Ot N93.9 ABNORMAL UTERINE AND VAGINAL BLEEDING, U 04/30/2015 EDITA BAXTER Ot R10.13 EPIGASTRIC PAIN 04/30/2015 EDITA BAXTER Ot R10.2 PELVIC AND PERINEAL PAIN 04/30/2015 EDITA BAXTER Ot R11.2 NAUSEA WITH VOMITING, UNSPECIFIED 01/24/2017 GREGORY BETHEA DO Ot F41.8 OTHER SPECIFIED ANXIETY DISORDERS 01/24/2017 GREGORY BETHEA DO Ot N39.0 URINARY TRACT INFECTION, SITE NOT SPECIF 01/24/2017 GREGORY BETHEA DO Ot R10.32 LEFT LOWER QUADRANT PAIN 01/24/2017 GREGORY BETHEA DO Ot Z32.02 ENCOUNTER FOR TEST, RESULT NEG 01/24/2017 GREGORY BETHEA DO, Ot Z87.891 PERSONAL HISTORY OF NICOTINE DEPENDENCE 01/24/2017 GREGORY BETHEA DO, Ot Z91.5 PERSONAL HISTORY OF SELF-HARM Procedures Code Description [place] [address] THERAPUTIC INJ SQ/IM 07/26/2012 [id number] DEPO-PROVERA INJ 150 MG 07/26/2012 37423 URINE TEST (IN-HOUSE) 07/26/2012 15543 ROUTINE VENIPUNCTURE 08/21/2012 63193 UA LONG DIP 08/21 08656 URINE TEST (IN-HOUSE) 08/21/2012 01656 A1C (IN-HOUSE) 52977 CBC 08/21/2012 09093 CMP 08/21/2012 [id number] GFR CALC (RESULT ONLY) 08/21/2012 19389 TSH 08/22/2012 56634 PSYTX PT&/FAMILY 45 MINUTES 09/02/2012 01149 THERAPUTIC INJ SQ/IM 12/26/2012 J1050 DEPO PROVERA 12956 GC/CHLAM URINE (STATE) 12/26/2012 85149 URINE TEST (IN-HOUSE) 12/26/2012 08212 ROUTINE VENIPUNCTURE 03/09/2014 92826 US PELVIC COMPL (REFLEX CPT- 47041) 03/09/2014 35958 UA W/ CULTURE IF INDICATED 03/09/2014 39230 CBC 03/09/2014 83658 ROUTINE VENIPUNCTURE 03/16/2014 18808 HCG QUANTITATIVE 03/16/2014 44813 US OB - TRANSVAGINAL 03/20/2014 29937 ROUTINE VENIPUNCTURE 04/27/2014 79006 UA W/ CULTURE IF INDICATED 04/27/2014 82112 SYPHILLIS-STATE LAB 04/27/2014 98842 HIV (STATE LAB) 04/27/2014 50853 ANTIBODY SCREEN (order) 04/27/2014 32836 HEP B SURFACE ANTIGEN (STATE) 04/27/2014 42904 CBC 04/27/2014 65789 TSH 04/27/2014 8075190 ANTIBODY SCREEN (RESULT ONLY) 04/28/2014 96487 BLOOD TYPE/Rh FACTOR 04/28/2014 06528 RUBELLA ANTIBODY, IGG 04/28/2014 77986 CULTURE URINE 27261 PSYCH DIAGNOSTIC EVALUATION 05/08/2014 30833 GC/CHLAM PROBE (STATE) 05/25/2014 39199 PAP SMEAR 2013 [id number] PAP SMEAR OBTAIN SMEAR 05/25/2014 [id number] UA OB DIP 2013 [id number] TRICHOMONAS (IN-HOUSE) 05/25/2014 [id number] CULTURE UROGENITAL 05/26/2014 [id number] UA OB DIP 2014 [id number] PSYCH DIAGNOSTIC EVALUATION 08/06/2014 [id number] UA OB DIP 2014 51110 UA OB DIP 2014 51237 CULTURE GROUP B STREP VAG 10/21/2014 27191 UA OB DIP 2014 63184 UA OB DIP 2014 [id number] UA OB DIP 2014 72.79 VACUUM EXTRACT DEL NEC 11/25/2014 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 11/25/2014 74.1 LOW CERVICAL 11/25/2014 Results Test Result Range Complete urinalysis with reflex to culture - 01/23/17 23:56 Urine color determination YELLOW NRG Urine clarity determination CLEAR NRG Urine pH measurement by test strip 6 5- 9 Specific gravity of urine by test strip 1.015 1.016-1.022 Urine protein assay by test strip, semi-quantitative NEGATIVE NEGATIVE Urine glucose detection by automated test strip NEGATIVE NEGATIVE Erythrocytes detection in urine sediment by light microscopy 1+ NEGATIVE Urine ketones detection by automated test strip NEGATIVE NEGATIVE Urine nitrite detection by test strip NEGATIVE NEGATIVE Urine total bilirubin detection by test strip NEGATIVE NEGATIVE Urine urobilinogen measurement by automated test strip (mass/volume) NORMAL NORMAL Urine leukocyte esterase detection by dipstick 1+ NEGATIVE Automated urine sediment erythrocyte count by microscopy (number/high power field) [HPF] NRG Automated urine sediment leukocyte count by microscopy (number/high power field ) [HPF] NRG Bacteria detection in urine sediment by light microscopy TRACE NRG Squamous epithelial cells detection in urine sediment by light microscopy 2-5 NRG Crystals detection in urine sediment by light microscopy NONE NRG Casts detection in urine sediment by light microscopy NONE NRG Mucus detection in urine sediment by light microscopy SMALL NRG Complete urinalysis with reflex to culture NO NRG Encounters ACCT No. Visit Date/Time Discharge Status Pt. Type Provider Facility Loc./Unit Complaint [id number] 11/16/2014 13:54:00 11/16/2014 23: 59:59 CLS Outpatient MELISSA KERR APRN [id number] 11/09/2014 14:17:00 11/09/2014 23: 59:59 CLS Outpatient URSZULA SERVIN DO [id number] 11/05/2014 15:28:00 11/05/2014 23: 59:59 CLS Outpatient DOC CHAMPION MD [id number] 10/19/2014 15:13:00 10/19/2014 23: 59:59 CLS Outpatient URSZULA SERVIN DO [place] [id number] 08/06/2014 15:05:00 08/06/2014 23: 59:59 CLS Outpatient BUCK OLSENMAY [id number] 08/03/2014 15:05:00 08/03/2014 23: 59:59 CLS Outpatient URSZULA SERVIN DO [place] [id number] 06/29/2014 14:54:00 06/29/2014 23: 59:59 CLS Outpatient GARETH WOOTEN URSZULA [place] [id number] 06/11/2014 09:45:00 06/11/2014 23: 59:59 CLS Outpatient KYLE FERNANDEZ APRN [place] [id number] 05/25/2014 13:25:00 05/25/2014 23: 59:59 CLS Outpatient USHA MELISSA THAKKAR [id number] 05/06/2014 14:45:00 05/06/2014 23: 59:59 CLS Outpatient ZORAIDA HOLLEY LCPC [id number] 04/27/2014 13:45:00 04/27/2014 23: 59:59 CLS Outpatient USHAMELISSA ESCOBAR APRN [id number] 04/09/2014 13:33:00 04/09/2014 23: 59:59 CLS Outpatient URSZULA SERVIN DO [place] [id number] 03/16/2014 09:00:00 03/16/2014 23: 59:59 CLS Outpatient USHA BAKERY CLERKMELISSA [place] [id number] 03/12/2014 08:51:00 03/12/2014 23: 59:59 CLS Outpatient USHAMELISSA Acuna APRN [id number] 03/09/2014 10:28:00 03/09/2014 23: 59:59 CLS Outpatient DEBORAHL BAKERY CLERKVAHIDDANE L [id number] 03/09/2014 10:28:00 03/09/2014 23: 59:59 CLS Outpatient MADL BAKERY CLERKVAHIDDANE L [id number] 02/06/2014 10:15:00 02/06/2014 23: 59:59 CLS Outpatient DEBORAHL BAKERY CLERKVAHIDDANE L [id number] 12/29/2013 15:32:00 12/29/2013 23: 59:59 CLS Outpatient GARETH WOOTEN URSZULA [place] [id number] 05/20/2013 13:27:00 05/20/2013 23: 59:59 CLS Outpatient CHAN DUNN DDS [id number] 10/28/2012 16:29:00 10/28/2012 23: 59:59 CLS Outpatient CESILIA CANALES MD [id number] 08/29/2012 07:56:00 08/29/2012 23: 59:59 CLS Outpatient LE GILMORE PSYD [id number] 08/21/2012 13:52:00 08/21/2012 23: 59:59 CLS Outpatient CESILIA CANALES MD [id number] 07/26/2012 16:30:00 07/26/2012 23: 59:59 CLS Outpatient [id number] 03/06/2013 16:41:00 Document Registration [id number] 12/26/2012 10:58:00 Document Registration [id number] 11/06/2012 09:46:00 Document Registration
--- NOTE | 2017-02-07 19:00 | OPERATIVE REPORT ---
PROCEDURE PHYSICIAN: CHINA ZALDIVAR DATE OF PROCEDURE: 02/06/2017 PREOPERATIVE DIAGNOSIS: Left upper quadrant abdominal pain, nausea and vomiting. POSTOPERATIVE DIAGNOSES: Gastritis. PROCEDURE: EGD SURGEON: [place] ANESTHESIA: Per MDA ESTIMATED BLOOD LOSS: None. COMPLICATIONS: None. INDICATIONS: The patient is a 26 year-old female who has been having some nausea and vomiting, and left upper quadrant abdominal pain. She was placed on omeprazole and Carafate. The Carafate she was taking twice a day. We increased it to 4 times per day and then she was not having the emesis anymore but still having the nausea and left upper quadrant abdominal pain. The patient was explained the risks and benefits of EGD and wished to proceed with the procedure. Consent was signed on the chart. PROCEDURE: The patient was taken to the endoscopy suite, placed in left lateral recumbent positions was performed. A time out was performed. The scope was inserted in the mouth, down the esophagus, stomach and into the duodenum without difficulty. There were no polyps, masses, or ulcerations within the duodenum. In the first portion there were some very slight erythematous changes. The scope was continued to be slowly retracted back into the antrum which had gastritis appearance and erythematous changes present, biopsy of the antrum in this area was obtained. The scope was slowly retracted back and also retroflexed noting no other pathology. The scope was returned to its normal position and slowly withdrawn back to the distal esophagus, which had no polyps, masses or ulcerations or erythematous changes. The scope was then slowly retracted back until completely removed. The patient tolerated the procedure well without complication. She was taken to recovery room in stable condition. RECOMMENDATIONS: We will stop the omeprazole and start Protonix 40 mg twice a day for 2 weeks and then once a day. We will continue on the Carafate 4 times per day. I will have her follow-up in 3 weeks and see how she is doing and see what biopsy results demonstrated. Further recommendations pending upon symptoms and biopsy results. Job ID: [id number] Dictated Date: 02/06/2017 13:03:35 Bartenders Date: 02/07/2017 18:46:43 / tbk
== END 2017-02-06 14:00 | disposition home or self-care (01) ==
LOC: ENDO 10:37
PROVIDERS: ATTEND Surgery
DX: K29.70 Gastritis, unspecified, without bleeding (principal); J45.909 Unspecified asthma, uncomplicated; F17.210 Nicotine dependence, cigarettes, uncomplicated; F41.9 Anxiety disorder, unspecified; F32.9 Major depressive disorder, single episode, unspecified; Z79.899 Other long term (current) drug therapy
CPT/HCPCS: 84703

== ENCOUNTER → 2017-02-26 | Outpatient (CLI) | payer MEDICAID ==
[~2017-02-26] MED LIST changes: +CATHETER FLUSH 10 ML SYR IV PRN; -METO-270 PO; +METO-387 PO; +SUCR1TAB36 PO
--- NOTE | 2017-02-26 10:42 | Diagnostic Imaging Report ---
PROCEDURE: US Gallbladder. TECHNIQUE: Multiple Real-time grayscale images were obtained over the right upper quadrant in various projections. INDICATION: Abdominal pain with nausea and vomiting. FINDINGS: The liver appears normal. The portal and hepatic veins are normal. The bile ducts are not dilated. The common duct measures 2.5 mm. The gallbladder appears normal with a gallbladder wall thickness of 2 mm. The pancreas is normal. The right kidney is visualized and is normal. There is no ascites. The patient did not experience a positive Philippe's sign. IMPRESSION: Normal right upper quadrant ultrasound. Dictated by: Dictated on workstation # [id number]
--- NOTE | 2017-02-26 12:04 | Diagnostic Imaging Report ---
EXAMINATION: HIDA with EF measurements Indication: Abdominal pain TECHNIQUE: After the intravenous administration of 4.9 mCi of Tc 99m Choletec, imaging over the abdomen was obtained. This was followed by administration of Ensure orally to stimulate intrinsic CCK secretion, followed by continued imaging with ejection fraction measured. FINDINGS: There is homogeneous uptake in the liver with prompt bile duct and gallbladder filling seen. Bowel activity is seen at 25 minutes. Based on further imaging and gallbladder area of interest activity measurements after the administration of Ensure, the gallbladder ejection fraction is estimated at 93%. IMPRESSION: 1. Normal hepatobiliary uptake and Gallbladder filling. 2. Normal gallbladder ejection fraction. Dictated by: Dictated on workstation # [id number]
== END ==
LOC: CARD 09:11
PROVIDERS: ATTEND Surgery
DX: R11.2 Nausea with vomiting, unspecified (principal)
CPT/HCPCS: 76705; 78227

== ENCOUNTER 2018-08-15 18:20 | Emergency (ER) | payer SELFPAY ==
[~2018-08-15] VITALS: Ht 170.2 cm; Wt 70.3 kg
[~2018-08-15 18:20] MED LIST changes: -CATHETER FLUSH 10 ML SYR IV PRN
[2018-08-15] MEDS ORDERED: TETANUS,DIPTH,PERTUSS P/F (BOOSTRIX) 0.5 ML VIAL IM STA (18:34)
--- NOTE | 2018-08-15 18:40 | ED Lower Extremity ---
General Chief Complaint: Lower Extremity Stated Complaint: TOE LACERATION Source: patient Exam Limitations: no limitations History of Present Illness Date Seen by Provider: Aug 15, 2018 Time Seen by Provider: 18:28 Initial Comments PT ARRIVES VIA POV STATES AROUND 2100 LAST NIGHT, SHE STOOD UP AND HAD PAIN IN RIGHT 2ND TOE AND PULLED A 1/2 INCH PIECE OF GLASS FROM THE TOP OF HER TOE TODAY, HAS HAD INCREASED PAIN, REDNESS AND PURPLISH DISCOLORATION AND SWELLING NO PARESTHESIAS OR MOTOR DEFICITS NO PRIOR INJURY TO THIS TOE LAST TETANUS IS UNKNOWN. PCP: [facility] Allergies and Home Medications Allergies Coded Allergies: latex (Unverified Allergy, Intermediate, 02/02/17) Home Medications Clonazepam 0.5 Mg Tablet, 0.5 MG PO BID PRN for ANXIETY, (Reported) Hyoscyamine Sulfate 0.125 Mg Tab.subl, 1-2 TAB SL Q4H Prescribed by: GREGORY BETHEA on 01/24/17 0055 Methylphenidate HCl 36 Mg Tab.er.24, 36 MG PO DAILY, (Reported) Metoprolol Succinate 25 Mg Tab.er.24h, PO BID, (Reported) Ondansetron 4 Mg Tab.rapdis, 4 MG PO Q4H Prescribed by: GREGORY BETHEA on 01/24/17 0055 Pantoprazole Sodium 40 Mg Tablet.dr, 40 MG PO DAILY Take protonix twice a day for 2 weeks and then once a day after that. Prescribed by: GUSTAVO FARRELL on 02/06/17 1254 Sucralfate 1 Gm Tablet, 1 GM PO QID, (Reported) Sucralfate 1 Gm Tablet, 1 GM PO QID Prescribed by: GUSTAVO FARRELL on 02/06/17 1349 Sulfamethoxazole/Trimethoprim 1 Each Tablet, 1 EACH PO BID Prescribed by: GREGORY BEHTEA on 08/15/18 1857 Patient Home Medication List Home Medication List Reviewed: Yes Review of Systems Constitutional: no symptoms reported : No LMP: Aug 09, 2018 Control/STD Prophylaxis: Depo Provera (FIRST SHOT ON Sunday08/09/18) Musculoskeletal: see HPI Skin: see HPI Psychiatric/Neurological: No Symptoms Reported Past Tudrmfm-Hpvckt-Lpcyen Hx Patient Social History Alcohol Use: Denies Use Recreational Drug Use: No Smoking Status: Never a Smoker Former Smoker, Quit: Feb 02, 2015 Recent Foreign Travel: No Contact w/Someone Who Travel: No Recent Hopitalizations: No Immunizations Up To Date Tetanus Booster (TDap): Unknown Date of Influenza Vaccine: Jun 29, 2014 Seasonal Allergies Seasonal Allergies: No Past Medical History Surgeries: Yes (BACK NEUROSTIMULATOR FOR OVERACTIVE BLADDER) Adenoidectomy, Bladder Surgery, Tonsillectomy Respiratory: Yes Asthma Cardiac: Yes Palpitations (PALPITATIONS RELATED TO ANXIETY) Neurological: Yes Headaches /Migraines : No Reproductive Disorders: No Female Reproductive Disorders: Denies Sexually Transmitted Disease: No HIV/AIDS: No Genitourinary: Yes Neurogenic Bladder Gastrointestinal: Yes Gastroesophageal Reflux, Chronic Constipation, Ulcer Musculoskeletal: No Endocrine: No Loss of Vision: Bilateral Hearing Impairment: Denies Cancer: No Psychosocial: Yes ADD/ADHD, Anxiety, Suicide Attempts, Depression Integumentary: No Blood Disorders: No Adverse Reaction/Blood Tranf: No Family Medical History Asthma 19 MOTHER Hypertension 19 FATHER Respiratory disorder 19 FATHER No Family History of: AIDS Abdominal aortic aneurysm Marcell's disease Alcoholism Alzheimer's disease Aphasia Arthritis Cancer of mouth Cardiovascular disease Cataracts Colon cancer Completed stroke Congenital disease Congenital heart disease Coronary thrombosis Cystic fibrosis Deafness or hearing loss Dementia Diabetes mellitus Drug abuse Dysphasia Fibrocystic disease of breast Gastroenteritis Glaucoma Headache disorder Hypercholesterolemia Infertility Kidney disease Myocardial infarction Neoplasm Not obtainable due to adoption Osteoporosis Parkinson's disease Prostate cancer Psychosocial problem Seizure disorder Severe allergy Thyroid disease Tuberculosis Visual disorder Physical Exam Vital Signs Vital Signs - First Documented 08/15/18 18:30 Temp 97.2 Pulse 96 Resp 18 B/P (MAP) 132/88 (103) Pulse Ox 99 Capillary Refill : Height, Weight, BMI Height: 5'7.00" Weight: 157lbs. 9.0oz. 71.504364sv; 24.7 BMI Method:Stated General Appearance: WD/WN, no apparent distress Feet: right foot other (SECOND TOE RIGHT FOOT--DORSAL ASPECT WITH TINY SCABBED AREA OVER PIP JOINT WITH MILD SURROUNDING ERYTHEMA AND TENDERNESS AND ECCHYMOSIS TO PERIPHERAL ASPECT OF ERYTHEMA. LIMITED ROM DUE TO PAIN, SENSORY / VASCULAR INTACT. ) Neurologic/Tendon: normal sensation, normal motor functions, normal tendon functions Neurologic/Psychiatric: in flight technician II-XII nml as tested, no motor/sensory deficits, alert, normal mood/affect, oriented x 3 Skin: normal color, warm/dry, tattoos/piercings, other ( ABOVE) Procedures/Interventions Splinting and Joint Reduction : Splints: Post Op Shoe Progress/Results/Core Measures Results/Orders My Orders Orders - GREGORY BETHEA DO Toe(S) (08/15/18 18:34) Dipht,Pertuss(Acell),Tet Adult (Boostrix (08/15/18 18:34) Post-Op Shoe (08/15/18 18:54) Vital Signs/I&O 08/15/18 18:30 Temp 97.2 Pulse 96 Resp 18 B/P (MAP) 132/88 (103) Pulse Ox 99 Diagnostic Imaging Comments XRAYS RIGHT TOES--NO ACUTE PROCESS, PER RADIOLOGIST REPORT @ 1853 Departure Impression Primary Impression: Puncture wound of second toe of right foot Additional Impressions: Cellulitis of second toe of right foot Chcmumajfj-oabehhxha-xrqcbos (DPT) vaccination administered at current visit Disposition: 01 HOME, SELF-CARE Condition: Stable Departure-Patient Inst. Referrals: [facility] (PCP/Family) Primary Care Physician Patient Instructions: Cellulitis (Skin Infection), Adult (DC), Diphtheria and Tetanus Toxoids, and Acellular Pertussis Vaccine, Wound Care (DC) Add. Discharge Instructions: WEAR POST OP SHOE NEEDED FOR COMFORT ICE TO AREA AT 20 MINUTE INTERVALS ELEVATE FOOT MUCH POSSIBLE SOAK IN WARM EPSOM SALTS 2-3 TIMES A DAY TYLENOL AND MOTRIN NEEDED FOR PAIN FOLLOW UP WITH YOUR DR IN 2-3 DAYS IF NO BETTER All discharge instructions reviewed with patient and/or family. Voiced understanding. Scripts Sulfamethoxazole/Trimethoprim (Bactrim Ds Tablet) 1 Each Tablet 1 EACH PO BID, #20 TAB Prov: GREGORY BETHEA DO 08/15/18 GREGORY BETHEA DO Aug 15, 2018 18:40
--- NOTE | 2018-08-15 18:49 | Diagnostic Imaging Report ---
INDICATION: Pain. FINDINGS: The alignment is grossly normal. There is no fracture or dislocation. Soft tissues are unremarkable. IMPRESSION: No acute fracture or dislocation. Dictated by: Dictated on workstation # [id number]
[2018-08-15] MEDS ORDERED: SULF1TAB35 PO (18:57)
[2018-08-15 19:03] VITALS: BP 132/88
== END 2018-08-15 19:03 | disposition home or self-care (01) ==
LOC: EDUNIT# 18:20 → ER 18:22
DX: S91.132A Puncture wound without foreign body of left great toe without damage to nail, initial encounter (principal); L03.031 Cellulitis of right toe; J45.909 Unspecified asthma, uncomplicated; F41.9 Anxiety disorder, unspecified; G43.909 Migraine, unspecified, not intractable, without status migrainosus; K21.9 Gastro-esophageal reflux disease without esophagitis; F90.9 Attention-deficit hyperactivity disorder, unspecified type; F32.9 Major depressive disorder, single episode, unspecified; Z91.5 Personal history of self-harm; Z87.19 Personal history of other diseases of the digestive system; Z82.49 Family history of ischemic heart disease and other diseases of the circulatory system; Z23 Encounter for immunization; Z90.89 Acquired absence of other organs; Z87.891 Personal history of nicotine dependence; Z91.040 Latex allergy status; W18.02XA Striking against glass with subsequent fall, initial encounter
CPT/HCPCS: 73660; 90715